=== PATIENT | female | born 1950 | race African-American/Black ===

== ENCOUNTER 2019-07-17 12:22 | Outpatient (CLI) | payer OTHER, MEDICAID, SELFPAY ==
--- NOTE | ~2019-07-17 | CT_ITS ---
EXAMINATION:CT lung screening DATE: 07/17/2019 13:03 INDICATION: Personal history of nicotine dependence. Smoker who quit 3 years ago with 30 pack year hi story. TECHNIQUE: Computed tomography (CT) of the chest was performed without intravenous contrast. Automate d exposure control and iterative reconstruction technique were employed. The dose-length product (DLP ) was 185.70 mGy-cm. COMPARISON: Chest CT 05/01/2017 FINDINGS: There is mild emphysema. There is mild atelectasis bilaterally. Calcified bilateral lung no dules and calcified hilar and mediastinal lymph nodes are consistent with old granulomatous disease. Again seen is a 6 mm part solid nodule in right middle lobe. There is a 3 mm nodule in right lower lo be. No pleural effusion. The heart size is normal. There are coronary artery calcifications. No peric ardial effusion. There is mild thoracic spondylosis. IMPRESSION: 1. Lung-RADS category 2: Benign appearance or behavior. Continue annual screening with noncontrast lo w-dose chest CT in 12 months. Reviewed, dictated and finalized at location A. IMPRESSION: 1. Lung-RADS category 2: Benign appearance or behavior. Continue annual screeni ng with noncontrast low-dose chest CT in 12 months.
== END 2019-07-17 12:23 | disposition home or self-care (01) ==
PROVIDERS: Visit Provider Internal Medicine Critical Care Medicine
DX: Z12.2 Encounter for screening for malignant neoplasm of respiratory organs (principal); Z87.891 Personal history of nicotine dependence
CPT/HCPCS: G0297

== ENCOUNTER 2019-07-23 13:40 | Emergency (ER) | payer OTHER, MEDICAID, SELFPAY ==
[2019-07-23 13:50] VITALS: BP 139/89; PULSE 64; RESP 20; TEMP 37.1; O2SAT 98
--- NOTE | 2019-07-23 14:09 | ED.EYEPROB ---
HPI - Eye Problem General Chief complaint: Eye Problems Stated complaint: Eye problems History of Present Illness HPI Narrative: Patient is a 69-year-old female presents to the [facility] via POV for evaluation of a right eye problem that began approximately 3 days ago. Additionally, she reports itching and redness and swelling of right upper and lower eyelid. No relief with warm compresses. Nothing worsens symptoms. Nothing improves symptoms. Denies fever, chills, sweats, change in appetite, poor p.o. intake, vision changes, drainage, rhinorrhea, congestion, eye pain, dry eyes, foreign body sensation, photophobia, cp, heart palpitations, sob, cough, headache, ear pain, and dizziness. MD chief complaint: eye pain Related Data Home Medications Medication Instructions Recorded Confirmed amlodipine 07/23/19 atorvastatin 07/23/19 empagliflozin [Jardiance] mg 07/23/19 fluticasone furoate-vilanterol INHALATION 07/23/19 [Breo Ellipta] insulin aspart U-100 [Novolog unit SUBCUT 07/23/19 Flexpen U-100 Insulin] insulin glargine [Lantus Solostar unit SUBCUT 07/23/19 U-100 Insulin] isosorbide mononitrate mg PO 07/23/19 lisinopril 07/23/19 metformin mg 07/23/19 metoprolol succinate PO 07/23/19 rivaroxaban [Xarelto] mg 07/23/19 tiotropium bromide [Spiriva INHALATION 07/23/19 Respimat] Allergies Allergy/AdvReac Type Severity Reaction Status Date / Time Penicillins Allergy Unknown Verified 10/17/17 11:28 Review of Systems Review of Systems: Narrative: All other systems reviewed and are negative COUNTS INCLUDE 234 BEDS AT THE [facility] Past Medical History Medical History Anxiety Arthritis Asthma-COPD overlap syndrome Atrial fibrillation, chronic Bronchitis Cataracts, bilateral CHF (congestive heart failure) Chronic back pain Chronic respiratory failure with hypoxia and hypercapnia COPD (chronic obstructive pulmonary disease) Diabetes History of melena HTN (hypertension) Hypercholesterolemia Pneumonia Postmenopausal Sleep apnea UTI (urinary tract infection) Surgical History Surgical History H/O tubal ligation H/O: hysterectomy Family History Family History Father Malignant neoplasm of prostate Patient's father is Mother Family history of malignant neoplasm of brain Patient's mother is Hypertension Family history of malignant neoplasm of ovary Sibling Family history of cardiovascular disease Other Diabetes mellitus Social History Social History Smoking packs per day: 1 Smoking cigarettes per day: 20.0 Years smoked: 20 Smoking pack-years: 20.00 Smoking status: Former smoker Smoking end date: 04/15/14 Alcohol intake: never Gender identity (if verbalized by the patient): Female Comments I have reviewed and agree with the patient's past medical, surgical, social, and family hx as documented by the RN. There is no relevant family history pertinent to the presenting complaint. Exam Narrative: Exam Narrative: GENERAL: Well-appearing, well-nourished, and in no acute distress. HEAD: Normocephalic, atraumatic. No sinus tenderness or facial swelling appreciated. EYES: PERRLA and EOMI. Periorbital are is without erythema, swelling, pain, and warmth. R eye with mild amount of clear drainage. Left eyelids and lashes are normal. Bilateral sclera are injected. Bilat conjunctiva are normal. Left upper and lower eyelids with moderate swelling and erythema. ENT: Nares clear, no rhinorrhea or epistaxis. Bilateral turbinates without erythema/ swelling. Mucous membranes moist and pink. Uvula is midline without erythema and swelling. No evidence of petechial rash, cobblestoning, lesions, ulcers, erythema, swelling, exudates, pe
--- NOTE | 2019-07-23 15:01 | PC.NURSE ---
aware of rx status. [facility] it dept. called for printing rx issue.
== END 2019-07-23 15:16 | disposition home or self-care (01) ==
PROVIDERS: Emergency Provider Nurse Practitioner Family
DX: J30.2 Other seasonal allergic rhinitis (principal); Z87.891 Personal history of nicotine dependence; M19.90 Unspecified osteoarthritis, unspecified site; I48.91 Unspecified atrial fibrillation; H26.9 Unspecified cataract; I11.0 Hypertensive heart disease with heart failure; I50.9 Heart failure, unspecified; J44.9 Chronic obstructive pulmonary disease, unspecified; E11.9 Type 2 diabetes mellitus without complications; E78.00 Pure hypercholesterolemia, unspecified; G47.30 Sleep apnea, unspecified; Z87.440 Personal history of urinary (tract) infections; Z79.4 Long term (current) use of insulin; Z79.01 Long term (current) use of anticoagulants
CPT/HCPCS: 99213; G0463

== ENCOUNTER 2019-08-04 16:35 | Emergency (ER) | payer OTHER, MEDICAID, SELFPAY ==
[2019-08-04 16:46] VITALS: BP 93/68; PULSE 87; RESP 16; TEMP 37.2; O2SAT 97
--- NOTE | 2019-08-04 17:07 | ED.SKABFB ---
HPI - Skin/Abscess/Foreign Bdy General Chief complaint: Skin/Abscess/Foreign Body Stated complaint: Itchy all over Time Seen by Provider: 08/04/19 17:07 Source: patient and RN notes reviewed Mode of arrival: ambulatory Limitations: no limitations History of Present Illness MD complaint: rash and other (itching) Related Data Home Medications Medication Instructions Recorded Confirmed amlodipine 07/23/19 atorvastatin 07/23/19 empagliflozin [Jardiance] mg 07/23/19 fluticasone furoate-vilanterol INHALATION 07/23/19 [Breo Ellipta] insulin aspart U-100 [Novolog unit SUBCUT 07/23/19 Flexpen U-100 Insulin] insulin glargine [Lantus Solostar unit SUBCUT 07/23/19 U-100 Insulin] isosorbide mononitrate mg PO 07/23/19 lisinopril 07/23/19 metformin mg 07/23/19 metoprolol succinate PO 07/23/19 rivaroxaban [Xarelto] mg 07/23/19 tiotropium bromide [Spiriva INHALATION 07/23/19 Respimat] Allergies Allergy/AdvReac Type Severity Reaction Status Date / Time Penicillins Allergy Unknown Verified 10/17/17 11:28 Review of Systems Review of Systems: Narrative: CONSTITUTIONAL: Denies fever, chills, or sweats. EYES: Denies visual changes, redness, or discharge. ENT: Denies rhinorrhea, congestion, sore throat, or otalgia. CARDIOVASCULAR: Denies chest pain, palpitations, or edema. RESPIRATORY: Denies cough or dyspnea. GASTROINTESTINAL: Denies abdominal pain, nausea, vomiting, or diarrhea. GENITOURINARY: Denies dysuria or hematuria. SKIN: Denies rash or itching. MUSCULOSKELETAL: Denies back pain, joint pain, or myalgia. NEUROLOGIC: Denies headache, numbness, or weakness. PSYCHIATRIC: Denies anxiety or depression. All systems reviewed & are unremarkable except as noted in HPI and below PMFSH Past Medical History Medical History Anxiety Arthritis Asthma-COPD overlap syndrome Atrial fibrillation, chronic Bronchitis Cataracts, bilateral CHF (congestive heart failure) Chronic back pain Chronic respiratory failure with hypoxia and hypercapnia COPD (chronic obstructive pulmonary disease) Diabetes History of melena HTN (hypertension) Hypercholesterolemia Pneumonia Postmenopausal Sleep apnea UTI (urinary tract infection) Surgical History Surgical History H/O tubal ligation H/O: hysterectomy Family History Family History Father Malignant neoplasm of prostate Patient's father is Mother Family history of malignant neoplasm of brain Patient's mother is Hypertension Family history of malignant neoplasm of ovary Sibling Family history of cardiovascular disease Other Diabetes mellitus Social History Social History Smoking packs per day: 1 Smoking cigarettes per day: 20.0 Years smoked: 20 Smoking pack-years: 20.00 Smoking status: Former smoker Smoking end date: 04/15/14 Alcohol intake: never Comments At time of signature, agree with nursing past medical, surgical, social and family history. There is no relevant family history pertinent to the presenting complaint Exam Narrative: Exam Narrative: GENERAL: Well-appearing, well-nourished, and in no acute distress. HEAD: Normocephalic, atraumatic. EYES: PERRLA and EOMI. ENT: Nares clear, no rhinorrhea or epistaxis. Mucous membranes moist. NECK: Supple. CHEST: Clear to auscultation. No respiratory distress. HEART: Regular rate and rhythm. No murmur heard. Normal peripheral pulses. ABDOMEN: Soft, nontender, nondistended, normal active bowel sounds. EXTREMITIES: Normal range of motion. No edema. SKIN: Warm, dry, no rash. NEURO: No focal deficits. Alert and oriented x3. Course Vital Signs Vital signs: Vital Signs Temperature 37.2 C 08/04/19 16:46 Pulse Rate 87 04
--- NOTE | 2019-08-04 17:08 | ED.SKABFB ---
HPI - Skin/Abscess/Foreign Bdy General Chief complaint: Skin/Abscess/Foreign Body Stated complaint: Itchy all over Time Seen by Provider: 08/04/19 17:07 Source: patient and RN notes reviewed Mode of arrival: ambulatory Limitations: no limitations History of Present Illness HPI narrative: 69 year old female presents to [facility] care with complaints of rash to anterior neck and on forearms for the past 1 weeks. Patient states that she has had problems with allergies for 2 weeks was seen previously in clinic for allergies with swelling to eyes. Patient was given steroids and told to use Flonase ,Pepcid and Zyrtec but only took steroids. Patient states that she has been taking some Benadryl with last dose yesterday. Patient has some swelling to her bilateral eyelids today with sclera clear and no drainage from eyes noted. Patient denies any new soaps, laundry detergents, or any new foods or medication, denies any pet exposure. Patient denies any difficulty with her breathing or any difficulty with swallowing with SAO2 97% on room air. MD complaint: rash and other (itching) Onset (ago): week(s) (2) Location: face (eyelids bilaterally), neck, LUE and RUE Severity: moderate Quality: other (itching) Pain Consistency: constant Relieving factors: none Context: none Associated symptoms: itching Treatments prior to arrival: other (took steroids sporatic use of Benadryl orally) Related Data Home Medications Medication Instructions Recorded Confirmed amlodipine 07/23/19 atorvastatin 07/23/19 empagliflozin [Jardiance] mg 07/23/19 fluticasone furoate-vilanterol INHALATION 07/23/19 [Breo Ellipta] insulin aspart U-100 [Novolog unit SUBCUT 07/23/19 Flexpen U-100 Insulin] insulin glargine [Lantus Solostar unit SUBCUT 07/23/19 U-100 Insulin] isosorbide mononitrate mg PO 07/23/19 lisinopril 07/23/19 metformin mg 07/23/19 metoprolol succinate PO 07/23/19 rivaroxaban [Xarelto] mg 07/23/19 tiotropium bromide [Spiriva INHALATION 07/23/19 Respimat] Allergies Allergy/AdvReac Type Severity Reaction Status Date / Time Penicillins Allergy Unknown Verified 10/17/17 11:28 Review of Systems Review of Systems: All systems reviewed & are unremarkable except as noted in HPI and below Constitutional: Constitutional: Reports as per HPI and Reports no additional constitutional complaints Eyes: Eyes: Reports as per HPI and Reports no additional eye complaints Comments: swelling to her bilateral eylids ENT: Reports system reviewed and no additional complaints, except as documented Cardiovascular: Cardiovascular: Reports as per HPI and Reports no additional cardiovascular complaints Respiratory: Respiratory: Reports as per HPI and Reports no additional respiratory complaints Gastrointestinal: Gastrointestinal: Reports as per HPI and Reports no additional gastrointestinal complaints Genitourinary: Genitourinary: Reports no additional female genitourinary complaints and Reports as per HPI Musculoskeletal: Musculoskeletal: Reports no additional musculoskeletal complaints and Reports as per HPI Integumentary/Breasts: Skin/Breast: Reports system reviewed and no additional complaints, except as docu and Reports as per HPI Neurologic: Reports system reviewed and no additional complaints, except as documented and Reports as per HPI Psychiatric: Psychiatric: Reports no additional psychiatric complaints and Reports as per HPI Endocrine: Endocrine: Reports no additional endocrine complaints and Reports as per HPI Hematologic/Lymphatic: Hematologic/Lymphatic: Reports no additional hematologic/lymphatic complaints and Reports as per HPI Allergic/Immunologic: Allergic/Immunologic: Reports no additional allergic/immunologic complaints Comments: fine red raised rash to her anterior neck and bilateral forearms near wrists, bilateral eyelid swelling with no drainage from eyes, sclera clear, no visual changes PMFSH Past Medical History Med
[2019-08-04] MEDS: methylPREDNISolone ACETATE 40 MG/ML VIAL 80 MG IM (17:37)
== END 2019-08-04 18:04 | disposition home or self-care (01) ==
LOC: EXPCOLL 16:39
PROVIDERS: Emergency Provider Registered Nurse
DX: L23.9 Allergic contact dermatitis, unspecified cause (principal); E11.9 Type 2 diabetes mellitus without complications; I48.20 Chronic atrial fibrillation, unspecified; J44.9 Chronic obstructive pulmonary disease, unspecified; I11.0 Hypertensive heart disease with heart failure; I50.9 Heart failure, unspecified; J96.11 Chronic respiratory failure with hypoxia; J96.12 Chronic respiratory failure with hypercapnia; Z79.01 Long term (current) use of anticoagulants; Z79.4 Long term (current) use of insulin; Z79.84 Long term (current) use of oral hypoglycemic drugs; Z87.891 Personal history of nicotine dependence; E78.00 Pure hypercholesterolemia, unspecified; Z87.440 Personal history of urinary (tract) infections; G47.30 Sleep apnea, unspecified
CPT/HCPCS: 96372; 99213; G0463; J1030

== ENCOUNTER 2019-08-21 20:07 | Emergency (ER) | payer OTHER, MEDICAID, SELFPAY ==
--- NOTE | ~2019-08-21 | CT_ITS ---
EXAMINATION: CT abdomen pelvis w con DATE: 08/21/2019 22:42 INDICATION: Left-sided abdomen pain. TECHNIQUE: Computed tomography (CT) of the abdomen and pelvis was performed with 100 cc Omnipaque 350 intravenous contrast. The dose-length product was 905.29 mGy-cm. Automated exposure control and iter ative reconstruction technique were employed. COMPARISON: 03/2017 FINDINGS: Lung bases are unremarkable. Heart size is normal. Small hiatal hernia. No significant pleu ral or pericardial effusion. The liver, spleen, pancreas, adrenal glands are unremarkable. There are small subcentimeter hypodensi ties of the kidneys, most likely benign cysts. Gallbladder is present. Stable 2.6 cm benign-appearing calcified soft tissue mass in the right lower abdomen anteriorly, likely benign. No abnormal pelvic masses or fluid collections. Nonobstructive bowel gas pattern. Small fat-containing umbilical hernia. No evidence for diverticulitis. Normal appendix. Mild atherosclerosis and ectasia of the aorta. Mode rate lumbar spondylosis. IMPRESSION: 1. No acute abdominal abnormality. Reviewed, dictated and finalized at location A.
[2019-08-21 20:08] VITALS: BP 114/54; PULSE 108; RESP 20; TEMP 36.2; O2SAT 98
--- NOTE | 2019-08-21 20:47 | ED.ABDPAIN ---
HPI - Abdominal Pain General Chief Complaint: Abdominal Pain Stated Complaint: ABD pain, vomiting Time Seen by Provider: 08/21/19 20:30 Source: patient Mode of arrival: ambulatory Limitations: no limitations History of Present Illness HPI narrative: Patient is a 69-year-old female who presents to the emergency department with complaint of abdominal pain. Patient reports onset of symptoms 2 days ago. Patient locates the pain diffusely across the left side of her abdomen. Patient has had nausea and vomiting intermittently as well. Patient denies any diarrhea or urinary symptoms. She denies any fever. Patient denies any prior episodes. MD elicited complaint: abdominal pain Pertinent past history: none Onset (ago): day(s) (2) Pain Consistency: constant Location: LUQ, LLQ and L flank Radiation: none Migration to: no migration Associated symptoms: nausea and vomiting Related Data Home Medications Medication Instructions Recorded Confirmed amlodipine 07/23/19 atorvastatin 07/23/19 empagliflozin [Jardiance] mg 07/23/19 fluticasone furoate-vilanterol INHALATION 07/23/19 [Breo Ellipta] insulin aspart U-100 [Novolog unit SUBCUT 07/23/19 Flexpen U-100 Insulin] insulin glargine [Lantus Solostar unit SUBCUT 07/23/19 U-100 Insulin] isosorbide mononitrate mg PO 07/23/19 lisinopril 07/23/19 metformin mg 07/23/19 metoprolol succinate PO 07/23/19 rivaroxaban [Xarelto] mg 07/23/19 tiotropium bromide [Spiriva INHALATION 07/23/19 Respimat] Allergies Allergy/AdvReac Type Severity Reaction Status Date / Time Penicillins Allergy Unknown Verified 10/17/17 11:28 Review of Systems Review of Systems: All systems reviewed & are unremarkable except as noted in HPI and below Constitutional: Constitutional: Denies fever(s) Gastrointestinal: Gastrointestinal: Reports abdominal pain, Denies hematochezia, Denies constipation, Denies diarrhea, Reports nausea and Reports vomiting Genitourinary: Genitourinary: Denies hematuria, Denies nocturia and Denies dysuria PMFSH Past Medical History Medical History Anxiety Arthritis Asthma-COPD overlap syndrome Atrial fibrillation, chronic Bronchitis Cataracts, bilateral CHF (congestive heart failure) Chronic back pain Chronic respiratory failure with hypoxia and hypercapnia COPD (chronic obstructive pulmonary disease) Diabetes History of melena HTN (hypertension) Hypercholesterolemia Pneumonia Postmenopausal Sleep apnea UTI (urinary tract infection) Surgical History Surgical History H/O tubal ligation H/O: hysterectomy Social History Social History Smoking packs per day: 1 Smoking cigarettes per day: 20.0 Years smoked: 20 Smoking pack-years: 20.00 Smoking status: Former smoker Smoking end date: 04/15/14 Alcohol intake: never Gender identity (if verbalized by the patient): Female Exam Const: General: cooperative, no acute distress and alert Nutritional Appearance: well nourished Orientation/consciousness: patient oriented x3 Limitations: no limitations Resp: Effort & Inspection: normal respiratory effort Auscultation: clear to auscultation bilaterally Cardio: Rate: regular rate Rhythm: regular rhythm GI: GI Palp: Yes Soft to palpation and Yes Tenderness to palpation present (GI) (Diffuse left abdomen/flank) Auscultation: normal bowel sounds : General: Yes no CVA tenderness Back/Spine/Pelvis: Back: no CVA tenderness and No back tenderness Thoracic/Lumbar Spine: thoraco-lumbar ROM normal Skin: General skin exam: normal color Neuro: General: patient oriented x3 Cognition (Neuro): normal cognition Speech: normal speech Extrem: General: normal to inspection, full ROM and no clubbing, cyanosis or edema Psych: Mental Status: mental status grossly normal
[2019-08-21 21:00] VITALS: BP 101/72; PULSE 91; RESP 18; O2SAT 99
[2019-08-21 21:07] LABS: Basophils Absolute Auto 0.1 K/mm3 (0.0-0.1); Basophils Percent Auto 0.8 % (0.2-1.2); Eosinophils Absolute Auto 0.1 K/mm3 (0-0.3); Eosinophils Percent Auto 1.6 % (0-4.4); Hematocrit 45.8 % (37.0-47.0); Hemoglobin 14.6 g/dL (12.0-15.0); Immature Granulocyte Absolute 0.03 K/mm3 (0.00-0.031); Immature Granulocyte Percent A 0.4 % (0-0.5); Lymphocytes Percent Auto 26.3 % (18.3-44.2); Mean Corpuscular HGB Conc 31.9 g/dl (32-36); Mean Corpuscular Hemoglobin 28.1 pg (26-34); Mean Corpuscular Volume 88.1 fl (80-100); Mean Platelet Volume 11.7 fl (7.4-10.4); Monocytes Absolute Auto 0.8 K/mm3 (0.1-0.6); Monocytes Percent Auto 10.2 % (2.6-8.5); Neutrophils Absolute Auto 4.9 K/mm3 (1.3-6.7); Neutrophils Percent Auto 60.7 % (45.5-73.1); Platelet Count Result 345 k/mm3 (150-375); Red Cell Distribution Width 17.4 % (11.5-14.5)
[2019-08-21 21:17] LABS: INR 1.6; Prothrombin Time 18.5 Seconds (11.1-14.7)
[2019-08-21 21:18] LABS: Lactic Acid Reflex 1.4 mmol/L (0.7-2.1); Partial Thromboplastin Time 39.7 SECONDS (22.3-36.8)
[2019-08-21 22:27] LABS: Alanine Aminotransferase 26 U/L (4-35); Albumin Level 4.5 g/dL (3.5-5.1); Alkaline Phosphatase 94 U/L (38-126); Aspartate Amino Transferase 25 U/L (14-36); Bilirubin,Total 0.4 mg/dL (0.2-1.3); Blood Urea Nitrogen 22 mg/dL (7-17); Calcium 9.5 mg/dL (8.4-10.2); Carbon Dioxide 26 mmol/L (22-30); Chloride 103 mmol/L (98-107); Estimated Glomerular Filt Rate 60; Glucose 176 mg/dL (65-105); Lipase 49 U/L (23-300); Potassium 4.2 mmol/L (3.4-5.0); Sodium 139 mmol/L (137-145)
[2019-08-21 23:19] LABS: Add Urine Microscopic? YES; Appearance Urine Clear (Clear); Bacteria Urine Trace /hpf; Bilirubin Urine Negative (Negative); Color Urine Yellow (Yellow); Glucose Urine UA 3+ mg/dL (Negative); Ketones Urine Negative (Negative); Leukocyte Esterase Ur 1+ LEU/UL (Negative); Mucus Urine Rare /lpf; Nitrate Urine Positive (Negative); Protein Urine 1+ mg/dL (Negative); RBC Urine 0-2 /hpf (0-2); Squamous Epithelial Cell Urine Moderate /hpf (Few); Urobilinogen Urine Negative mg/dL (<2.0); WBC Urine >75 /hpf
[2019-08-21 23:25] LABS: Specific Grav Ur 1.054 (1.001-1.035)
[2019-08-21 23:26] LABS: Blood Urine Negative (Negative)
[2019-08-21 23:33] VITALS: BP 107/67; PULSE 90; RESP 18; O2SAT 98
[2019-08-22] MEDS: ONDANSETRON INJ 4 MG/2 ML VIAL IV PUSH (00:14)
[2019-08-22 01:07] VITALS: BP 142/79; PULSE 74; RESP 18; O2SAT 99
== END 2019-08-22 01:08 | disposition home or self-care (01) ==
PROVIDERS: Emergency Provider Emergency Medicine
DX: N39.0 Urinary tract infection, site not specified (principal); M19.90 Unspecified osteoarthritis, unspecified site; I48.20 Chronic atrial fibrillation, unspecified; Z79.01 Long term (current) use of anticoagulants; I50.9 Heart failure, unspecified; J96.11 Chronic respiratory failure with hypoxia; J96.12 Chronic respiratory failure with hypercapnia; E11.9 Type 2 diabetes mellitus without complications; I11.0 Hypertensive heart disease with heart failure; E78.00 Pure hypercholesterolemia, unspecified; G47.30 Sleep apnea, unspecified; Z87.891 Personal history of nicotine dependence; J44.9 Chronic obstructive pulmonary disease, unspecified; Z79.84 Long term (current) use of oral hypoglycemic drugs; Z79.4 Long term (current) use of insulin
CPT/HCPCS: 36415; 74177; 80053; 81001; 83605; 83690; 85025; 85610; 85730; 87077; 87086; 87088; 87186; 96365; 96375; 99284; J0131; J0696; J2405; Q9967

== ENCOUNTER 2019-11-28 09:27 | Observation (INO) | payer OTHER, MEDICAID, SELFPAY ==
[2019-11-28] VITALS (12 sets, daily range): BP systolic 125–166; BP diastolic 74–128; PULSE 88–109; RESP 18–30; TEMP 36.2–36.4; O2SAT 92–99; BMI 35.8
--- NOTE | ~2019-11-28 | XR_ITS ---
EXAMINATION: XR chest 1V portable DATE: 11/28/2019 10:41 INDICATION: Shortness of breath. TECHNIQUE: A single frontal view of the chest was obtained. COMPARISON: Chest 2 views 03/20/2019, CT abdomen and pelvis 08/21/2019 FINDINGS: The chest demonstrates clear lungs without pneumonia, pleural effusion, or pneumothorax. Ca rdiomegaly is noted. IMPRESSION: 1. Cardiomegaly. Reviewed, dictated and finalized at location A. IMPRESSION: 1. Cardiomegaly.
--- NOTE | ~2019-11-28 | CT_ITS ---
EXAMINATION: CTA chest PE protocol DATE: 11/29/2019 12:04 INDICATION: Shortness of breath. TECHNIQUE: Computed tomography angiography (CTA) of the chest was performed with 100 mL Omnipaque-350 intravenous contrast timed to evaluate the pulmonary arteries. Coronal maximum intensity projection 3D-reconstructions were created by the technologist. Automated exposure control and iterative reconst ruction technique were employed. The dose-length product was 909.10 mGy-cm. COMPARISON: Chest CT 07/17/2019 FINDINGS: There is mild emphysema. Motion artifact is noted. Calcified pulmonary nodules and calcifie d hilar and mediastinal lymph nodes are consistent with old granulomatous disease. There is mild atel ectasis bilaterally. No pleural effusion. There is biatrial enlargement of the heart. No pericardial effusion. There is no pulmonary embolus. There is mild thoracic spondylosis and severe lumbar spondyl osis. IMPRESSION: 1. No pulmonary embolus. Sensitivity is mildly decreased by motion artifact. 2. Mild emphysema. Reviewed, dictated and finalized at location A.
--- NOTE | 2019-11-28 09:47 | ECG_ITS ---
Measurements Intervals [place] Rate: 91 P: [place]: 0 QRS: 60 QRSD: 86 T: 66 QT: 361 QTc: 446 Interpretive Statements ATRIAL FIBRILLATION INCOMPLETE RIGHT BUNDLE BRANCH BLOCK BASELINE ARTIFACT- I, II, III, AVL, AVR, AVL, AVF, V1-V3 ABNORMAL ECG Electronically Signed On 11-28-2019 10:17:18 CDT by Gonsalo Salmon D.O.
--- NOTE | 2019-11-28 10:32 | ED.SOB ---
HPI - SOB/Dyspnea General Chief Complaint: Shortness of Breath/Dyspnea Stated Complaint: SOB Source: patient Mode of arrival: ambulatory Limitations: no limitations History of Present Illness HPI Narrative: This patient is a 69 year old female with history of COPD home oxygen, CHF who presents from home for evaluation of sob since last night. PAtient reports she has not been able to sleep due to worsening sob. She has a cough that is productive with white phlegm. She has been using her inhaler and nebulizer without improved. She normal wears [place] oxygen at home but she did not bring it with her to ER, so she was hypoxic on arrival. SHe denies chest pain, fever, nausea, vomiting or edema. She denies any sick contacts. Pertinent past history: COPD and congestive heart failure Relieving factors: nothing Known history of: COPD and congestive heart failure Associated symptoms: cough, wheezing and sputum production Related Data Home oxygen amount: 2 liters Home Medications Medication Instructions Recorded Confirmed amlodipine 10 mg PO DAILY 07/23/19 11/28/19 atorvastatin 20 mg PO HS 07/23/19 11/28/19 empagliflozin [Jardiance] 10 mg PO DAILY 07/23/19 11/28/19 fluticasone furoate-vilanterol 1 inh INHALATION DAILY 07/23/19 11/28/19 [Breo Ellipta] insulin aspart U-100 [Novolog 10 unit SUBCUT TID 07/23/19 11/28/19 Flexpen U-100 Insulin] insulin glargine [Lantus Solostar 25 unit SUBCUT HS 07/23/19 11/28/19 U-100 Insulin] isosorbide mononitrate 30 mg PO DAILY 07/23/19 11/28/19 lisinopril 20 mg PO DAILY 07/23/19 11/28/19 metformin 500 mg PO BID 07/23/19 11/28/19 metoprolol succinate 25 mg PO DAILY 07/23/19 11/28/19 rivaroxaban [Xarelto] 20 mg PO DAILY 07/23/19 11/28/19 tiotropium bromide [Spiriva 1 inh INHALATION BID 07/23/19 11/28/19 Respimat] albuterol sulfate 2.5 mg INHALATION Q3H 11/28/19 11/28/19 Allergies Allergy/AdvReac Type Severity Reaction Status Date / Time Penicillins Allergy Unknown Rash Verified 11/28/19 12:16 Review of Systems Review of Systems: All systems reviewed & are unremarkable except as noted in HPI and below Constitutional: Constitutional: Denies chills and Denies fever(s) ENT: Denies sore throat Cardiovascular: Cardiovascular: Denies chest pain Respiratory: Respiratory: Reports cough, Reports dyspnea and Reports wheezing Gastrointestinal: Gastrointestinal: Denies abdominal pain, Denies diarrhea, Denies nausea and Denies vomiting PMFSH Past Medical History Medical History Anxiety Arthritis Asthma-COPD overlap syndrome Atrial fibrillation, chronic Bronchitis Cataracts, bilateral CHF (congestive heart failure) Chronic back pain Chronic respiratory failure with hypoxia and hypercapnia COPD (chronic obstructive pulmonary disease) Diabetes History of melena HTN (hypertension) Hypercholesterolemia Pneumonia Postmenopausal Sleep apnea UTI (urinary tract infection) Social History Social History Smoking packs per day: 1 Smoking cigarettes per day: 20.0 Years smoked: 20 Smoking pack-years: 20.00 Smoking status: Former smoker Tobacco type: cigarettes Smoking end date: 04/15/14 Alcohol intake: never Substance use: never Gender identity (if verbalized by the patient): Female Spiritual care concerns: No Exam Const: General: alert; No diaphoretic Orientation/consciousness: patient oriented x3 Other: mild distress Eyes: EOM: EOMs intact bilaterally Neck: Neck: normal visual inspection Chest: Chest palpation & inspection: normal inspection of the chest Resp: Effort & Inspection: not labored, no retractions, tachypneic and no use of accessory muscles Auscultation: wheezes throughout Cardio: Rate: regular rate Rhythm: regular rhythm Heart sounds: no murmurs GI: GI Palp: Yes Soft to palpation, No Tenderness to palpation pres
[2019-11-28 10:46] LABS: Alveolar/Arterial O2 Gradient 17.5 mmHg; Base Excess ABG 0.8 mEq/l (+/-2.0); Carboxyhemoglobin 0.7 % THb (0-2.0); Device ROOM AIR; Fractional Inspired Oxygen 21 %; HCO3 ABG 27.4 mEq/l (22.0-26.0); Methemoglobin ABG 0.2 %THb (0-1.5); Oxygen Content ABG 16.7 %vol (16.0-22.0); Oxygen Saturation ABG 92.9 % (95.0-100.0); Oxyhemoglobin 91.3 % THb (90.0-100.0); PCO2 ABG 51.9 mmHg (35.0-45.0); PO2 ABG 70.1 mmHg (80.0-100.0); PO2 FiO2 Ratio Arterial Blood 3.34 %; Reduced Hemoglobin 7.8 %THb (0-5.0); Site Drawn RIGHT BRACHIAL
[2019-11-28] MEDS: ALBUTEROL SULFATE (*SP) AEROSOL 1 PUFF 8 PUFF INHALATION (10:47)
[2019-11-28] MEDS: methylPREDNISolone SOD SUCC 125 MG VIAL IV PUSH (11:33)
[2019-11-28 12:03] LABS: Basophils Absolute Auto 0.1 K/mm3 (0.0-0.1); Basophils Percent Auto 0.7 % (0.2-1.2); Eosinophils Absolute Auto 0.6 K/mm3 (0-0.3); Eosinophils Percent Auto 6.8 % (0-4.4); Hematocrit 43.5 % (37.0-47.0); Hemoglobin 13.7 g/dL (12.0-15.0); Immature Granulocyte Absolute 0.06 K/mm3 (0.00-0.031); Immature Granulocyte Percent A 0.7 % (0-0.5); Lactate Dehydrogenase 561 U/L (313-618); Lymphocytes Absolute Auto 1.45 K/mm3 (0.9-3.2); Lymphocytes Percent Auto 17.7 % (18.3-44.2); Mean Corpuscular HGB Conc 31.5 g/dl (32-36); Mean Corpuscular Hemoglobin 28.7 pg (26-34); Mean Corpuscular Volume 91.2 fl (80-100); Mean Platelet Volume 11.9 fl (7.4-10.4); Monocytes Absolute Auto 0.7 K/mm3 (0.1-0.6); Neutrophils Absolute Auto 5.3 K/mm3 (1.3-6.7); Neutrophils Percent Auto 65.1 % (45.5-73.1); Platelet Count Result 306 k/mm3 (150-375); Red Blood Count 4.77 M/mm3 (4.2-5.4); Red Cell Distribution Width 15.2 % (11.5-14.5); White Blood Count 8.2 K/mm3 (4.5-10.0)
[2019-11-28 12:07] LABS: Alanine Aminotransferase 28 U/L (4-35); Albumin Level 4.5 g/dL (3.5-5.1); Alkaline Phosphatase 83 U/L (38-126); Anion Gap 8 mmol/L (8-16); Aspartate Amino Transferase 31 U/L (14-36); Bilirubin,Total 0.5 mg/dL (0.2-1.3); Blood Urea Nitrogen 16 mg/dL (7-17); Calcium 8.9 mg/dL (8.4-10.2); Carbon Dioxide 30 mmol/L (22-30); Chloride 101 mmol/L (98-107); Estimated CRCL calculation 89 ml/min; Estimated Glomerular Filt Rate > 60; Glucose 164 mg/dL (65-105); Potassium 4.3 mmol/L (3.4-5.0); Sodium 139 mmol/L (137-145)
[2019-11-28 12:12] LABS: NT Pro B Type Natriuretic Pept 297 PG/ML (5-100)
[2019-11-28 12:48] LABS: INR 1.4; Prothrombin Time 16.5 Seconds (11.1-14.7)
[2019-11-28 12:49] LABS: Partial Thromboplastin Time 36.4 SECONDS (22.3-36.8)
--- NOTE | 2019-11-28 15:50 | PC.NURSE ---
This patient, Nano Gayle, was admitted to [facility] Room 330-01. Patient/family oriented to hospital policies and general routines including ID bracelet, bed and alarms, visiting hours, pain management, procedures, bathroom and other care routines, personal items, smoking policy, room service/diet, and visiting hours. Valuables list has been completed. Information on how to activate the Rapid Response Team has been discussed. Patient/Family are encouraged to report perceived risks to care and to ask questions if they do not understand what they are told or what they should do.
[2019-11-28 16:50] LABS: Glucose Point of Care 191 (65-105)
[2019-11-28] MEDS: methylPREDNISolone SOD SUCC 125 MG VIAL 60 MG IV PUSH (18:45)
[2019-11-28] MEDS: ALBUTEROL SULFATE (*SP) AEROSOL 1 PUFF 6 PUFF INHALATION (20:10)
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
[2019-11-28] MEDS: ISOSORBIDE MONONITRATE 30 MG TAB.ER.24H PO (21:04)
[2019-11-28] MEDS: METOPROLOL SUCCINATE EXT REL 25 MG TABCR PO (21:04)
[2019-11-28] MEDS: lisinopriL 20 MG TABLET PO (21:04)
[2019-11-28] MEDS: RIVAROXABAN 20 MG TABLET PO (21:04)
[2019-11-28] MEDS: ATORVASTATIN 20 MG TABLET PO (21:05)
[2019-11-28] MEDS: INSULIN GLARGINE (*BKC) 100 UNITS/ML 25 UNITS SUB-Q (21:05)
[2019-11-28 21:53] LABS: Glucose Point of Care 313 (65-105)
[2019-11-28 22:22] LABS: SARS-CoV-2 RNA PCR Negative
[2019-11-29] VITALS (15 sets, daily range): BP systolic 121–130; BP diastolic 66–79; PULSE 80–108; RESP 18–24; TEMP 36.1–36.4; O2SAT 94–100
[2019-11-29] MEDS: methylPREDNISolone SOD SUCC 125 MG VIAL 60 MG IV PUSH ×3 (01:30→21:08)
[2019-11-29 06:57] LABS: Basophils Percent Auto 0.1 % (0.2-1.2); Hematocrit 41.1 % (37.0-47.0); Hemoglobin 13.1 g/dL (12.0-15.0); Immature Granulocyte Absolute 0.05 K/mm3 (0.00-0.031); Immature Granulocyte Percent A 0.5 % (0-0.5); Lymphocytes Absolute Auto 1.21 K/mm3 (0.9-3.2); Lymphocytes Percent Auto 12.5 % (18.3-44.2); Mean Corpuscular HGB Conc 31.9 g/dl (32-36); Mean Corpuscular Volume 91.1 fl (80-100); Monocytes Absolute Auto 0.3 K/mm3 (0.1-0.6); Neutrophils Absolute Auto 8.1 K/mm3 (1.3-6.7); Neutrophils Percent Auto 83.9 % (45.5-73.1); Platelet Count Result 308 k/mm3 (150-375); Red Blood Count 4.51 M/mm3 (4.2-5.4); White Blood Count 9.7 K/mm3 (4.5-10.0)
[2019-11-29 07:10] LABS: Alanine Aminotransferase 30 U/L (4-35); Albumin Level 4.5 g/dL (3.5-5.1); Alkaline Phosphatase 85 U/L (38-126); Anion Gap 10 mmol/L (8-16); Aspartate Amino Transferase 23 U/L (14-36); Bilirubin,Total 0.4 mg/dL (0.2-1.3); Blood Urea Nitrogen 16 mg/dL (7-17); Calcium 9.3 mg/dL (8.4-10.2); Carbon Dioxide 27 mmol/L (22-30); Chloride 102 mmol/L (98-107); Estimated CRCL calculation 89 ml/min; Estimated Glomerular Filt Rate > 60; Glucose 232 mg/dL (65-105); Potassium 4.3 mmol/L (3.4-5.0); Sodium 139 mmol/L (137-145)
[2019-11-29] MEDS: INSULIN ASPART (*BKC) 100 UNITS/ML SUB-Q ×4 (08:39→21:09)
[2019-11-29] MEDS: ALBUTEROL SULFATE (*SP) AEROSOL 1 PUFF 6 PUFF INHALATION (08:43)
[2019-11-29] MEDS: ISOSORBIDE MONONITRATE 30 MG TAB.ER.24H PO (09:27)
[2019-11-29] MEDS: RIVAROXABAN 20 MG TABLET PO (09:28)
[2019-11-29] MEDS: METOPROLOL SUCCINATE EXT REL 25 MG TABCR PO (09:28)
[2019-11-29] MEDS: lisinopriL 20 MG TABLET PO (09:28)
[2019-11-29] MEDS: amLODIPine BESYLATE 5 MG TABLET 10 MG PO (09:28)
--- NOTE | 2019-11-29 11:21 | PM.IMPN ---
Progress Note: A&P Assessment and Plan (1) Acute exacerbation of chronic obstructive airways disease: Code(s): J44.1 - Chronic obstructive pulmonary disease with (acute) exacerbation Status: Acute Assessment and Plan: Patient presents with sudden onset worsening shortness of breath 2 days prior to arrival; suspect secondary to COPD exacerbation. Chest XR without consolidations or infiltrates. COVID negative. Pulmonary embolism less likely if she has been taking her Xarelto appropriately, but will obtain CTA chest. Takes spiriva and symbicort at home. Hold spiriva in light of duo nebs. Decrease dose of IV solu-medrol; add back nebulized bronchodilator therapy since she is COVID negative; supplemental O2. (2) Chronic respiratory failure with hypoxia and hypercapnia: Code(s): J96.11 - Chronic respiratory failure with hypoxia; J96.12 - Chronic respiratory failure with hypercapnia Status: Acute Assessment and Plan: She tells me she uses 2 to 3 L/min home oxygen only as needed when she is feeling short of breath. Anticipate possible discharge home tomorrow; will plan for home O2 evaluation. (3) Atrial fibrillation, chronic: Code(s): I48.20 - Chronic atrial fibrillation, unspecified Status: Chronic Assessment and Plan: Continue metoprolol and anticoagulation with home Xarelto. Telemetry shows a fib rate 96. (4) Chronic diastolic (congestive) heart failure: Code(s): I50.32 - Chronic diastolic (congestive) heart failure Status: Chronic Assessment and Plan: Chronic diastolic; appears well-compensated. Last echocardiogram 2015 shows normal EF 60-65%, grade I diastolic dysfunction without wall motion abnormalities. BNP is within normal limits for her age. (5) Essential (primary) hypertension: Code(s): I10 - Essential (primary) hypertension Status: Chronic Assessment and Plan: BP is stable, last 122/78 maintained on her home Norvasc, lisinopril, and metoprolol. (6) Diabetic nephropathy associated with type 2 diabetes mellitus: Code(s): E11.21 - Type 2 diabetes mellitus with diabetic nephropathy Status: Acute Assessment and Plan: A1c is 8.0. Home metformin and Jardiance are held. Continue her home long-acting insulin, monitor with accu-cheks and cover with SSI. (7) MARCELO (obstructive sleep apnea): Code(s): G47.33 - Obstructive sleep apnea (adult) (pediatric) Status: Acute Assessment and Plan: CPAP ordered. (8) Hypercholesterolemia: Code(s): E78.00 - Pure hypercholesterolemia, unspecified Status: Chronic Assessment and Plan: Continue home statin therapy. Subjective Date/time seen: 11/29/19 1000 Interval history: Ms. Gayle is a 69yo F admitted with COPD exacerbation. She reports feeling a little bit better today. She feels short of breath with walking but doing okay at rest. She tells me her cough is productive with white phlegm and is at her baseline. She is tolerating oral intake without nausea or vomiting. Review of Systems Review of Systems: Narrative: Twelve systems were reviewed with pertinent positives and negatives as per HPI. Exam Narrative: Exam Narrative: General: Female resting comfortably in bed in no acute distress. HEENT: Normocephalic, EOMI, oral mucosa moist. Cardiovascular: Rate and rhythm are regular. Respiratory: Diffuse expiratory wheezing bilaterally. Non-labored breathing. Tolerating 2L O2 nasal cannula. Abdomen: Soft, non-tender, non-distended, bowel sounds present. Extremities: Peripheral pulses intact. No edema.
[2019-11-29 11:38] LABS: Glucose Point of Care 368 (65-105)
[2019-11-29] MEDS: IPRATROPIUM BR 0.02% INH SOLN 0.5 MG/2.5 ML VIAL INHALATION ×2 (13:07→20:04)
[2019-11-29 17:00] LABS: Glucose Point of Care 326 (65-105)
[2019-11-29] MEDS: ATORVASTATIN 20 MG TABLET PO (21:08)
[2019-11-29] MEDS: FAMOTIDINE 20 MG TABLET 40 MG PO (21:08)
[2019-11-29] MEDS: INSULIN GLARGINE (*BKC) 100 UNITS/ML 25 UNITS SUB-Q (21:08)
[2019-11-29 21:20] LABS: Glucose Point of Care > 500 (65-105)
[2019-11-29] MEDS: guaiFENesin/DEXTROMETHORPHAN 10 ML UDC 5 ML PO (22:56)
[2019-11-29 23:24] LABS: Glucose Point of Care 447 (65-105)
[2019-11-29] MEDS: INSULIN ASPART (*BKC) 100 UNITS/ML 8 UNITS SUB-Q (23:26)
[2019-11-30] VITALS (17 sets, daily range): BP systolic 137; BP diastolic 77; PULSE 82–98; RESP 16–26; TEMP 36.8; O2SAT 86–96
[2019-11-30] MEDS: IPRATROPIUM BR 0.02% INH SOLN 0.5 MG/2.5 ML VIAL INHALATION ×2 (01:28→08:15)
[2019-11-30 04:10] LABS: Glucose Point of Care 262 (65-105)
[2019-11-30] MEDS: INSULIN ASPART (*BKC) 100 UNITS/ML SUB-Q ×2 (05:52→09:59)
[2019-11-30 08:21] LABS: Glucose Point of Care 269 (65-105)
[2019-11-30] MEDS: INSULIN ASPART (*BKC) 100 UNITS/ML 8 UNITS SUB-Q (09:59)
[2019-11-30] MEDS: metFORMIN HCL 500 MG TABLET PO (10:00)
[2019-11-30] MEDS: amLODIPine BESYLATE 5 MG TABLET 10 MG PO (10:00)
[2019-11-30] MEDS: RIVAROXABAN 20 MG TABLET PO (10:01)
[2019-11-30] MEDS: METOPROLOL SUCCINATE EXT REL 25 MG TABCR PO (10:01)
[2019-11-30] MEDS: predniSONE 20 MG TABLET 60 MG PO (10:01)
[2019-11-30] MEDS: FAMOTIDINE 20 MG TABLET 40 MG PO (10:02)
[2019-11-30] MEDS: lisinopriL 20 MG TABLET PO (10:03)
[2019-11-30] MEDS: ISOSORBIDE MONONITRATE 30 MG TAB.ER.24H PO (10:03)
--- NOTE | 2019-11-30 10:08 | PCRCNOTE ---
HOME O2 EVAL COMPLETE, NO CHANGES FROM PREVIOUS SETTING. NEIGHBOR WILL BRING TANK FOR DISCHARGE
[2019-11-30 10:16] LABS: Glucose Point of Care 249 (65-105)
--- NOTE | 2019-11-30 11:29 | PM.DS ---
DS: Admitting Diagnosis Admitting Diagnosis Admitting Diagnosis: COPD exacerbation/PUI COVID DS: Discharge Diagnosis Discharge Diagnosis (1) Acute exacerbation of chronic obstructive airways disease: Code(s): J44.1 - Chronic obstructive pulmonary disease with (acute) exacerbation Status: Acute Assessment and Plan: Date of Service 11/30/19: Ms. Gayle is a pleasant 69yo F with COPD, chronic A fib on long-term anticoagulation with Xarelto, CHF, hypertension, insulin-dependent type 2 diabetes mellitus, obstructive sleep apnea who presented to the ED for evaluation of worsening shortness of breath onset 2 days ago. She noted she uses 2L home oxygen as needed when she feels short of breath. She used her albuterol nebulizer at home with no relief. CTA chest showed no PE, infiltrate or consolidation. COVID negative. She was treated for COPD exacerbation with IV steroids and nebulized bronchodilators. She was feeling much improved with the therapy outlined above and hemodynamically stable for discharge 11/30/19 with a tapered course of prednisone. Home O2 evaluation showed she could tolerate room air at rest but to use 2L with activity. She will follow up with PCP and also has an appointment with Dr Aguiar's office in a couple weeks. (2) Chronic respiratory failure with hypoxia and hypercapnia: Code(s): J96.11 - Chronic respiratory failure with hypoxia; J96.12 - Chronic respiratory failure with hypercapnia Status: Acute Assessment and Plan: (3) Atrial fibrillation, chronic: Code(s): I48.20 - Chronic atrial fibrillation, unspecified Status: Chronic Assessment and Plan: Rate controlled maintained on her home metoprolol and anticoagulation with home Xarelto. Telemetry shows a fib rate 90s. (4) Chronic diastolic (congestive) heart failure: Code(s): I50.32 - Chronic diastolic (congestive) heart failure Status: Chronic Assessment and Plan: Chronic diastolic; appears well-compensated. Last echocardiogram 2015 shows normal EF 60-65%, grade I diastolic dysfunction without wall motion abnormalities. BNP is within normal limits for her age. (5) Essential (primary) hypertension: Code(s): I10 - Essential (primary) hypertension Status: Chronic Assessment and Plan: BP is stable maintained on her home Norvasc, lisinopril, and metoprolol. (6) Diabetic nephropathy associated with type 2 diabetes mellitus: Code(s): E11.21 - Type 2 diabetes mellitus with diabetic nephropathy Status: Acute Assessment and Plan: A1c is 8.0. (7) MARCELO (obstructive sleep apnea): Code(s): G47.33 - Obstructive sleep apnea (adult) (pediatric) Status: Acute Assessment and Plan: CPAP. (8) Hypercholesterolemia: Code(s): E78.00 - Pure hypercholesterolemia, unspecified Status: Chronic Assessment and Plan: Continue home statin therapy. DS: Summary Time Spent with Patient Time attestation: Total time spent providing and/or coordinating discharge services: 35 minutes Exam Narrative: Exam Narrative: General: Female resting comfortably sitting up in bed in no acute distress. HEENT: Normocephalic, EOMI, oral mucosa moist. Cardiovascular: Rate and rhythm are regular. Respiratory: Faint wheezing MATTHEW, improved from yesterday. Non-labored breathing. Abdomen: Soft, non-tender, non-distended, bowel sounds present. Extremities: Peripheral pulses intact. No edema. Negative Justice's bilaterally. Neuro: No focal neurological deficits. Speech is clear. DS: Data Data Completed and Pending Labs on d
== END 2019-11-30 12:51 | disposition home or self-care (01) ==
LOC: ANHED 10:03 → ANH3MEDSUR 14:48
PROVIDERS: Nurse Practitioner; Admitting Provider Internal Medicine; Emergency Provider General Practice; Visit Provider Internal Medicine
DX: J44.1 Chronic obstructive pulmonary disease with (acute) exacerbation (principal); Z20.828 Contact with and (suspected) exposure to other viral communicable diseases; I48.20 Chronic atrial fibrillation, unspecified; J96.11 Chronic respiratory failure with hypoxia; J96.12 Chronic respiratory failure with hypercapnia; I11.0 Hypertensive heart disease with heart failure; I50.32 Chronic diastolic (congestive) heart failure; E11.21 Type 2 diabetes mellitus with diabetic nephropathy; E11.44 Type 2 diabetes mellitus with diabetic amyotrophy; G47.33 Obstructive sleep apnea (adult) (pediatric); E78.00 Pure hypercholesterolemia, unspecified; Z87.891 Personal history of nicotine dependence; Z99.81 Dependence on supplemental oxygen; Z79.01 Long term (current) use of anticoagulants; Z79.4 Long term (current) use of insulin; Z79.899 Other long term (current) drug therapy
CPT/HCPCS: 36415; 36600; 71045; 71275; 80053; 82375; 82728; 82805; 83036; 83050; 83615; 83735; 83880; 85025; 85610; 85730; 86140; 87635; 93005; 94618; 94640; 96374; 96376; 99285; A9270; C9803; G0378; J1815; J2930; J7512; Q9967; U0003

== ENCOUNTER 2019-12-19 22:29 | Emergency (ER) | payer OTHER, MEDICAID, SELFPAY ==
[2019-12-19 22:32] VITALS: BP 127/85; PULSE 104; RESP 20; TEMP 36.7; O2SAT 95
[2019-12-19 22:52] LABS: Basophils Percent Auto 0.3 % (0.2-1.2); Hematocrit 39.2 % (37.0-47.0); Hemoglobin 12.4 g/dL (12.0-15.0); Immature Granulocyte Absolute 0.02 K/mm3 (0.00-0.031); Immature Granulocyte Percent A 0.3 % (0-0.5); Lymphocytes Absolute Auto 1.11 K/mm3 (0.9-3.2); Lymphocytes Percent Auto 15.1 % (18.3-44.2); Mean Corpuscular HGB Conc 31.6 g/dl (32-36); Mean Corpuscular Hemoglobin 29.2 pg (26-34); Mean Corpuscular Volume 92.5 fl (80-100); Mean Platelet Volume 11.4 fl (7.4-10.4); Monocytes Absolute Auto 0.6 K/mm3 (0.1-0.6); Monocytes Percent Auto 7.6 % (2.6-8.5); Neutrophils Absolute Auto 5.7 K/mm3 (1.3-6.7); Neutrophils Percent Auto 76.7 % (45.5-73.1); Platelet Count Result 211 k/mm3 (150-375); Red Blood Count 4.24 M/mm3 (4.2-5.4); Red Cell Distribution Width 15.1 % (11.5-14.5); White Blood Count 7.4 K/mm3 (4.5-10.0)
[2019-12-19 22:56] VITALS: BP 127/85; PULSE 104; RESP 20; O2SAT 98
[2019-12-19] MEDS: ONDANSETRON INJ 4 MG/2 ML VIAL IV PUSH (22:57)
[2019-12-19 22:59] LABS: Alanine Aminotransferase 29 U/L (4-35); Albumin Level 4.3 g/dL (3.5-5.1); Alkaline Phosphatase 66 U/L (38-126); Anion Gap 12 mmol/L (8-16); Aspartate Amino Transferase 26 U/L (14-36); Bilirubin,Total 0.5 mg/dL (0.2-1.3); Blood Urea Nitrogen 23 mg/dL (7-17); Calcium 8.8 mg/dL (8.4-10.2); Carbon Dioxide 25 mmol/L (22-30); Chloride 101 mmol/L (98-107); Estimated Glomerular Filt Rate > 60; Glucose 292 mg/dL (65-105); Lipase 25 U/L (23-300); Potassium 4.2 mmol/L (3.4-5.0); Sodium 138 mmol/L (137-145)
[2019-12-19 23:06] LABS: Add Urine Microscopic? YES; Appearance Urine Clear (Clear); Bacteria Urine Trace /hpf; Bilirubin Urine Negative (Negative); Blood Urine Negative (Negative); Color Urine Yellow (Yellow); Glucose Urine UA 3+ mg/dL (Negative); Ketones Urine Trace mg/dL (Negative); Leukocyte Esterase Ur Negative LEU/UL (Negative); Mucus Urine Few /lpf; Nitrate Urine Negative (Negative); Protein Urine 1+ mg/dL (Negative); Specific Grav Ur 1.024 (1.001-1.035); Squamous Epithelial Cell Urine Few /hpf (Few); WBC Urine 0-3 /hpf
[2019-12-19 23:57] VITALS: BP 115/84; PULSE 98; RESP 20; O2SAT 98
[2019-12-20 00:49] VITALS: BP 131/91; PULSE 96; RESP 20; O2SAT 99
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
[2019-12-20 01:41] VITALS: BP 131/91; PULSE 98; RESP 20; O2SAT 98
== END 2019-12-20 01:47 | disposition home or self-care (01) ==
PROVIDERS: Emergency Provider Emergency Medicine
DX: R11.2 Nausea with vomiting, unspecified (principal); E11.22 Type 2 diabetes mellitus with diabetic chronic kidney disease; I13.0 Hypertensive heart and chronic kidney disease with heart failure and stage 1 through stage 4 chronic kidney disease, or unspecified chronic kidney disease; N18.4 Chronic kidney disease, stage 4 (severe); Z79.84 Long term (current) use of oral hypoglycemic drugs; J44.9 Chronic obstructive pulmonary disease, unspecified; I48.20 Chronic atrial fibrillation, unspecified; Z79.01 Long term (current) use of anticoagulants; M19.90 Unspecified osteoarthritis, unspecified site; E11.44 Type 2 diabetes mellitus with diabetic amyotrophy; J96.12 Chronic respiratory failure with hypercapnia; Z87.891 Personal history of nicotine dependence; J96.11 Chronic respiratory failure with hypoxia; E78.00 Pure hypercholesterolemia, unspecified; Z87.440 Personal history of urinary (tract) infections; G47.30 Sleep apnea, unspecified; Z98.42 Cataract extraction status, left eye; Z98.41 Cataract extraction status, right eye
CPT/HCPCS: 36415; 80053; 81001; 83690; 85025; 96374; 99284; J2405

== ENCOUNTER 2020-02-22 16:54 | Emergency (ER) | payer OTHER, MEDICAID, SELFPAY ==
--- NOTE | ~2020-02-22 | XR_ITS ---
XR chest 2V DATE: 02/22/2020 17:34 INDICATION: Productive cough and fever. Past smoker. TECHNIQUE: 2 views COMPARISON: 11/29/2019 CT pulmonary scan 11/28/2019 portable AP chest FINDINGS: Mild cardiomegaly. Aortic calcification and mild unfolding. No hilar or mediastinal enlarge ment is evident. The lungs are hyperinflated suggesting COPD. There is evidence of old pulmonary granulomatous disease . There is mild discoid atelectasis or scarring in the left mid and right lower lung zones. Diffuse osteopenia. Degenerative changes of thoracic and lumbar spine. IMPRESSION: Mild cardiomegaly Bilateral hyperinflation suggesting COPD Old pulmonary granulomatous disease Mild discoid atelectasis or scarring in the left mid and right lower lung zones Reviewed, dictated and finalized at location A. ICAL ASSOCIATE
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
[2020-02-22 17:05] VITALS: BP 104/74; PULSE 114; RESP 36; TEMP 37.8; O2SAT 95
[2020-02-22 17:19] VITALS: PULSE 114; RESP 36; O2SAT 95
[2020-02-22] MEDS: ALBUTEROL SULFATE NEB 2.5 MG/3 ML INH INHALATION (17:25)
[2020-02-22] MEDS: IPRATROPIUM BR 0.02% INH SOLN 0.5 MG/2.5 ML VIAL INHALATION (17:25)
[2020-02-22 17:40] VITALS: PULSE 104; RESP 28; O2SAT 94
[2020-02-22 18:20] VITALS: PULSE 104; RESP 30; O2SAT 94
== END 2020-02-22 18:20 | disposition short-term general hospital (02) ==
PROVIDERS: Emergency Provider Nurse Practitioner Family
DX: R06.02 Shortness of breath (principal); R50.9 Fever, unspecified; Z87.891 Personal history of nicotine dependence; I13.0 Hypertensive heart and chronic kidney disease with heart failure and stage 1 through stage 4 chronic kidney disease, or unspecified chronic kidney disease; E11.22 Type 2 diabetes mellitus with diabetic chronic kidney disease; N18.4 Chronic kidney disease, stage 4 (severe); I50.9 Heart failure, unspecified; Z79.4 Long term (current) use of insulin; M19.90 Unspecified osteoarthritis, unspecified site; I48.91 Unspecified atrial fibrillation; E78.00 Pure hypercholesterolemia, unspecified; G47.30 Sleep apnea, unspecified
CPT/HCPCS: 71046; 87081; 87804; 87880; 99213; G0463

== ENCOUNTER 2020-02-22 18:58 | Emergency (ER) | payer OTHER, MEDICAID, SELFPAY ==
--- NOTE | ~2020-02-22 | XR_ITS ---
XR chest 1V portable DATE: 02/22/2020 19:57 INDICATION: Cough and shortness of breath for 3 days. History of COPD, congestive heart failure, asth ma, hypertension TECHNIQUE: Portable upright AP chest on 03/03/2020 at 1958 hours COMPARISON: 02/22/2020 2 view chest FINDINGS: There is cardiomegaly. There is pulmonary vascular redistribution which may indicate mild p ulmonary venous hypertension. No pulmonary infiltrate or consolidation or racemic pleural effusion or pneumothorax is detected. Calcified pulmonary granuloma in the right mid lung and calcified right pa ratracheal lymph nodes, consistent with old granulomatous disease Diffuse osteopenia. IMPRESSION: Cardiomegaly, pulmonary vascular redistribution, the latter which may indicate pulmonary vascular redistribution, possibly due to mild mild congestive heart failure Reviewed, dictated and finalized at location A. 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
[2020-02-22 19:26] VITALS: BP 109/75; PULSE 96; RESP 22; TEMP 37.1; O2SAT 94
--- NOTE | 2020-02-22 19:29 | ECG_ITS ---
Measurements Intervals [place] Rate: 99 P: CO: 0 QRS: 17 QRSD: 94 T: 68 QT: 335 QTc: 431 Interpretive Statements ATRIAL FIBRILLATION VENTRICULAR PREMATURE COMPLEX INCOMPLETE RIGHT BUNDLE BRANCH BLOCK BORDERLINE ST-T WAVE ABNORMALITY- HIGH LATERAL LEADS BASELINE ARTIFACT- I, II, III, AVR, AVL, AVF ABNORMAL ECG Electronically Signed On 02-22-2020 20:18:41 INSTRUCTIONAL DESIGN TECHNOLOGIST by Gonsalo Salmon D.O.
[2020-02-22 20:25] LABS: Basophils Absolute Auto 0.1 K/mm3 (0.0-0.1); Basophils Percent Auto 0.8 % (0.2-1.2); Eosinophils Absolute Auto 0.2 K/mm3 (0-0.3); Eosinophils Percent Auto 2.6 % (0-4.4); Hemoglobin 12.5 g/dL (12.0-15.0); Immature Granulocyte Absolute 0.05 K/mm3 (0.00-0.031); Immature Granulocyte Percent A 0.7 % (0-0.5); Lymphocytes Absolute Auto 1.07 K/mm3 (0.9-3.2); Lymphocytes Percent Auto 14.2 % (18.3-44.2); Mean Corpuscular HGB Conc 32.9 g/dl (32-36); Mean Corpuscular Hemoglobin 28.9 pg (26-34); Mean Corpuscular Volume 87.8 fl (80-100); Mean Platelet Volume 10.8 fl (7.4-10.4); Monocytes Absolute Auto 1.8 K/mm3 (0.1-0.6); Monocytes Percent Auto 24.3 % (2.6-8.5); Neutrophils Absolute Auto 4.3 K/mm3 (1.3-6.7); Neutrophils Percent Auto 57.4 % (45.5-73.1); Platelet Count Result 237 k/mm3 (150-375); Red Blood Count 4.33 M/mm3 (4.2-5.4); Red Cell Distribution Width 15.8 % (11.5-14.5); White Blood Count 7.6 K/mm3 (4.5-10.0)
[2020-02-22 20:58] LABS: NT Pro B Type Natriuretic Pept 488 PG/ML (5-100)
[2020-02-22 21:10] LABS: Anion Gap 12 mmol/L (8-16); Blood Urea Nitrogen 17 mg/dL (7-17); Calcium 8.8 mg/dL (8.4-10.2); Carbon Dioxide 24 mmol/L (22-30); Chloride 102 mmol/L (98-107); Estimated CRCL calculation 70 ml/min; Estimated Glomerular Filt Rate > 60; Glucose 171 mg/dL (65-105); Potassium 4.2 mmol/L (3.4-5.0); Sodium 138 mmol/L (137-145)
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
[2020-02-22] MEDS: ACETAMINOPHEN 325 MG TABLET 650 MG PO (21:58)
[2020-02-22] MEDS: predniSONE 40 MG, predniSONE 10 MG 50 MG PO (21:59)
[2020-02-22 22:55] VITALS: BP 123/88; PULSE 93; RESP 19; O2SAT 92
[2020-02-24 14:13] LABS: SARS-CoV-2 RNA PCR Positive
== END 2020-02-22 21:00 | disposition home or self-care (01) ==
PROVIDERS: Emergency Provider Emergency Medicine
DX: U07.1 COVID-19 (principal); J44.9 Chronic obstructive pulmonary disease, unspecified; I48.20 Chronic atrial fibrillation, unspecified; E11.22 Type 2 diabetes mellitus with diabetic chronic kidney disease; I13.0 Hypertensive heart and chronic kidney disease with heart failure and stage 1 through stage 4 chronic kidney disease, or unspecified chronic kidney disease; N18.4 Chronic kidney disease, stage 4 (severe); Z87.891 Personal history of nicotine dependence; Z79.01 Long term (current) use of anticoagulants; Z79.4 Long term (current) use of insulin; J96.11 Chronic respiratory failure with hypoxia; J96.12 Chronic respiratory failure with hypercapnia; E11.44 Type 2 diabetes mellitus with diabetic amyotrophy; E78.00 Pure hypercholesterolemia, unspecified; G47.30 Sleep apnea, unspecified; Z87.440 Personal history of urinary (tract) infections; Z98.49 Cataract extraction status, unspecified eye; I49.3 Ventricular premature depolarization; I45.10 Unspecified right bundle-branch block
CPT/HCPCS: 36415; 71045; 71046; 80048; 83880; 85025; 87081; 87635; 87804; 87880; 93005; 99284; A9270; C9803; J7512; U0003

== ENCOUNTER 2020-11-28 16:44 | Emergency (ER) | payer OTHER, MEDICAID, SELFPAY ==
--- NOTE | ~2020-11-28 | XR_ITS ---
XR lumbar spine 2-3V DATE: 11/28/2020 22:21 INDICATION: Right lower back pain. No injury TECHNIQUE: AP, lateral, coned lateral lumbosacral views COMPARISON: None FINDINGS: There is mild rotatory dextroscoliosis of the thoracolumbar spine. Diffuse osteopenia. There is degenerative disease throughout the lumbar and lumbosacral spine, most pronounced at L1-2 an d L5-S1. No fracture or bone destruction is detected. The lumbar and included lower thoracic pedicles are inta ct. No spondylolisthesis. The sacroiliac joints are intact, with degenerative change. IMPRESSION: Mild rotatory dextroscoliosis of the thoracolumbar spine Osteopenia Multilevel degenerative disc disease Reviewed, dictated and finalized at location A.
[2020-11-28 17:10] VITALS: BP 115/75; PULSE 81; RESP 20; TEMP 36.4; O2SAT 97
[2020-11-28 19:13] VITALS: BP 111/70; PULSE 83; RESP 20; TEMP 36.4; O2SAT 97
[2020-11-28 20:23] VITALS: BP 141/86; PULSE 84; RESP 21; O2SAT 98
[2020-11-28] MEDS: CYCLOBENZAPRINE HCL 10 MG TABLET PO (22:03)
[2020-11-28] MEDS: HYDROcodone/acetaminophen (*CRX) 5-325 MG TABLET 1 TAB PO (22:03)
[2020-11-28 22:08] VITALS: BP 133/91; PULSE 91; RESP 24; O2SAT 97
[2020-11-28 22:22] LABS: Add Urine Microscopic? YES; Appearance Urine Clear (Clear); Bilirubin Urine Negative (Negative); Blood Urine Negative (Negative); Color Urine Straw (Yellow); Glucose Urine UA 3+ mg/dL (Negative); Ketones Urine Trace mg/dL (Negative); Leukocyte Esterase Ur Negative LEU/UL (Negative); Nitrate Urine Negative (Negative); Protein Urine Negative (Negative); RBC Urine 0-2 /hpf (0-2); Specific Grav Ur 1.027 (1.001-1.035)
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
[2020-11-28 23:04] VITALS: BP 132/87; PULSE 90; RESP 20; O2SAT 95
== END 2020-11-28 23:05 | disposition home or self-care (01) ==
PROVIDERS: Emergency Provider Emergency Medicine
DX: M54.5 Low back pain (principal); Z79.01 Long term (current) use of anticoagulants; Z79.4 Long term (current) use of insulin; Z79.899 Other long term (current) drug therapy; J44.9 Chronic obstructive pulmonary disease, unspecified; I48.20 Chronic atrial fibrillation, unspecified; E11.22 Type 2 diabetes mellitus with diabetic chronic kidney disease; I13.0 Hypertensive heart and chronic kidney disease with heart failure and stage 1 through stage 4 chronic kidney disease, or unspecified chronic kidney disease; N18.4 Chronic kidney disease, stage 4 (severe); J96.11 Chronic respiratory failure with hypoxia; J96.12 Chronic respiratory failure with hypercapnia; E78.00 Pure hypercholesterolemia, unspecified; Z87.01 Personal history of pneumonia (recurrent); G47.30 Sleep apnea, unspecified; Z87.440 Personal history of urinary (tract) infections; E11.44 Type 2 diabetes mellitus with diabetic amyotrophy; Z98.49 Cataract extraction status, unspecified eye; Z87.891 Personal history of nicotine dependence
CPT/HCPCS: 72100; 81001; 99283; A9270

== ENCOUNTER 2020-12-12 13:54 | Outpatient (CLI) | payer OTHER, MEDICAID, SELFPAY ==
--- NOTE | ~2020-12-12 | CT_ITS ---
EXAMINATION:CT lung screening DATE: 12/12/2020 14:19 INDICATION: Personal history of tobacco dependence. Smoker who quit 6 years ago with 20 pack-year his tory. TECHNIQUE: Computed tomography (CT) of the chest was performed without intravenous contrast. Automate d exposure control and iterative reconstruction technique were employed. The dose-length product (DLP ) was 168.73 mGy-cm. COMPARISON: Chest CT 11/29/2019 FINDINGS: There is mild emphysema. There is mild atelectasis bilaterally. Calcified bilateral pulmona ry nodules and calcified hilar and mediastinal lymph nodes are consistent with old granulomatous dise ase. There is a chronic 5 mm nodule at minor fissure. There are a few scattered nodules measuring up to 3 mm. No pleural effusion. Cardiomegaly is noted. There are coronary artery calcifications. There are calcifications of aortic valve. No pericardial effusion. There is severe degenerative disc diseas e at T11-T12. IMPRESSION: 1. Lung-RADS category 2: Benign appearance or behavior. Continue annual screening with noncontrast lo w-dose chest CT in 12 months. Reviewed, dictated and finalized at location A. IMPRESSION: 1. Lung-RADS category 2: Benign appearance or behavior. Continue annual screeni ng with noncontrast low-dose chest CT in 12 months.
== END 2020-12-12 13:55 | disposition home or self-care (01) ==
PROVIDERS: Visit Provider Nurse Practitioner Family
DX: Z12.2 Encounter for screening for malignant neoplasm of respiratory organs (principal); Z87.891 Personal history of nicotine dependence
CPT/HCPCS: 71271

== ENCOUNTER 2021-10-30 13:00 | Outpatient (RCR) | payer OTHER, MEDICAID, SELFPAY | END 2021-10-30 23:59 | disposition home or self-care (01) | LOC: ANHAUDIO 13:00 | DX: Z46.1 Encounter for fitting and adjustment of hearing aid (principal); H90.3 Sensorineural hearing loss, bilateral | CPT/HCPCS: 99199 ==

== ENCOUNTER 2021-12-13 13:33 | Outpatient (CLI) | payer OTHER, MEDICAID, SELFPAY ==
--- NOTE | ~2021-12-13 | CT_ITS ---
EXAMINATION: CT lung screening DATE: 12/13/2021 13:56 INDICATION: Annual screening TECHNIQUE: Computed tomography (CT) of the chest was performed without intravenous contrast. Addition al 3D reconstructions utilizing coronal maximum intensity projection (MIP) were performed. Automated exposure control and iterative reconstruction technique were employed. The dose-length product was 24 6.10 mGy-cm. COMPARISON: 12/12/2020 FINDINGS: Mild emphysema. A few small bilateral calcified pulmonary nodules along with calcified bilateral jeremias r and mediastinal lymph nodes consistent with old granulomatous disease. Unchanged 4 mm nodule in the right middle lobe near the junction of the major and minor fissures. Slight increase in size of a pr eviously 6 x 3 mm, currently 8 x 4 mm nodule. Unchanged minimal linear atelectasis/scarring at the ba silar right middle and left lower lobes. No pneumonia, pulmonary edema or pleural effusion. Mild card iomegaly. Small amount of atherosclerotic coronary artery calcific a sheath. No pericardial effusion. Thoracic aorta is normal in caliber. No pathologically enlarged thoracic lymphadenopathy. Moderate t o severe disc height loss with associated degenerative cystic endplate changes at T11-T12 and L1-L2. IMPRESSION: 1. Lung-RADS category 4A (Suspicious, 5-15% chance of malignancy) with slight interval enlargement of an 8 x 4 mm nodule along the right minor fissure. Recommend 3 month follow-up low-dose noncontrast c hest CT. Reviewed, dictated and finalized at location A. IMPRESSION: 1. Lung-RADS category 4A (Suspicious, 5-15% chance of malignancy) with slight i nterval enlargement of an 8 x 4 mm nodule along the right minor fissure. Recomm end 3 month follow-up low-dose noncontrast chest CT.
== END 2021-12-13 13:34 | disposition home or self-care (01) ==
LOC: ANHIMG 13:39
PROVIDERS: PCP Student in an Organized Health Care Education/Training Program; Visit Provider Nurse Practitioner Family
DX: Z12.2 Encounter for screening for malignant neoplasm of respiratory organs (principal); Z87.891 Personal history of nicotine dependence; R91.8 Other nonspecific abnormal finding of lung field
CPT/HCPCS: 71271

== ENCOUNTER 2021-12-24 11:09 | Emergency (ER) | payer MEDICARE, MEDICAID, SELFPAY ==
--- NOTE | ~2021-12-24 | XR_ITS ---
XR chest 2V DATE: 12/24/2021 11:44 INDICATION: Shortness of breath. History of congestive heart failure, COPD and pneumonia. TECHNIQUE: PA and lateral views COMPARISON: 12/13/2021 CT lung screening 03/03/2020 2 view chest FINDINGS: Moderate bilateral hyperinflation. Calcified right lower lobe pulmonary granuloma. There is mild discoid atelectasis or scarring of the left midlung. No pulmonary infiltrate or consolidation, pleural effusion or pulmonary vascular congestion or pneumo thorax is detected. Heart size appears within normal limits. IMPRESSION: No significant change since 02/22/2020 Reviewed, dictated and finalized at location A.
[2021-12-24 11:11] VITALS: BP 130/77; PULSE 93; RESP 20; TEMP 36.1; O2SAT 100
[2021-12-24 11:24] VITALS: BP 135/68; PULSE 103; RESP 22; O2SAT 98
[2021-12-24 11:28] VITALS: PULSE 89; O2SAT 96
--- NOTE | 2021-12-24 11:28 | ECG_ITS ---
Measurements Intervals [place] Rate: 91 P: IA: 0 QRS: 33 QRSD: 90 T: 61 QT: 340 QTc: 418 Interpretive Statements ATRIAL FIBRILLATION INCOMPLETE RIGHT BUNDLE BRANCH BLOCK BORDERLINE ST-T WAVE ABNORMALITY- HIGH LATERAL LEADS BASELINE ARTIFACT- I, II, III, AVR, AVL, AVF, V2 ABNORMAL ECG COMPARED TO ECG 02/22/2020 19:32:36 NO SIGNIFICANT CHANGES Electronically Signed On 12-24-2021 12:21:35 CDT by Gonsalo Salmon D.O.
[2021-12-24 11:38] LABS: Basophils Absolute Auto 0.1 K/mm3 (0.0-0.1); Basophils Percent Auto 0.8 % (0.2-1.2); Eosinophils Absolute Auto 0.7 K/mm3 (0-0.3); Eosinophils Percent Auto 8.9 % (0-4.4); Hematocrit 40.6 % (37.0-47.0); Hemoglobin 12.9 g/dL (12.0-15.0); Immature Granulocyte Absolute 0.02 K/mm3 (0.00-0.031); Immature Granulocyte Percent A 0.3 % (0-0.5); Lymphocytes Absolute Auto 1.58 K/mm3 (0.9-3.2); Lymphocytes Percent Auto 21.6 % (18.3-44.2); Mean Corpuscular HGB Conc 31.8 g/dl (32-36); Mean Corpuscular Hemoglobin 28.7 pg (26-34); Mean Corpuscular Volume 90.2 fl (80-100); Mean Platelet Volume 10.8 fl (7.4-10.4); Monocytes Absolute Auto 0.8 K/mm3 (0.1-0.6); Monocytes Percent Auto 10.3 % (2.6-8.5); Neutrophils Absolute Auto 4.3 K/mm3 (1.3-6.7); Neutrophils Percent Auto 58.1 % (45.5-73.1); Platelet Count Result 273 k/mm3 (150-375); Red Cell Distribution Width 15.5 % (11.5-14.5); White Blood Count 7.3 K/mm3 (4.5-10.0)
[2021-12-24 11:47] LABS: Alanine Aminotransferase 33 U/L (6-35); Albumin Level 4.3 g/dL (3.5-5.1); Alkaline Phosphatase 89 U/L (38-126); Anion Gap 11 mmol/L (8-16); Aspartate Amino Transferase 32 U/L (14-36); Bilirubin,Total 0.7 mg/dL (0.2-1.3); Blood Urea Nitrogen 16 mg/dL (7-17); Calcium 8.9 mg/dL (8.4-10.2); Carbon Dioxide 23 mmol/L (22-30); Chloride 105 mmol/L (98-107); Estimated CRCL calculation 79 ml/min; Estimated Glomerular Filt Rate > 60; Glucose 281 mg/dL (65-110); Potassium 4.5 mmol/L (3.4-5.0); Sodium 139 mmol/L (137-145)
[2021-12-24] MEDS: IPRATROPIUM BR 0.02% INH SOLN 0.5 MG/2.5 ML VIAL INHALATION (12:34)
[2021-12-24] MEDS: ALBUTEROL SULFATE NEB 2.5 MG/3 ML INH 5 MG INHALATION (12:34)
[2021-12-24 12:35] VITALS: PULSE 78; RESP 20
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
[2021-12-24 13:05] VITALS: PULSE 84; RESP 20
[2021-12-24 13:07] LABS: Influenza A QL RT-PCR Negative (Negative); Influenza B QL RT-PCR Negative (Negative); SARS-CoV-2 RNA PCR Negative
[2021-12-24 13:45] VITALS: BP 128/76; PULSE 92; RESP 18; O2SAT 100
== END 2021-12-24 14:09 | disposition home or self-care (01) ==
PROVIDERS: Emergency Medicine; Emergency Provider Emergency Medicine; PCP Student in an Organized Health Care Education/Training Program
DX: J44.9 Chronic obstructive pulmonary disease, unspecified (principal); I13.0 Hypertensive heart and chronic kidney disease with heart failure and stage 1 through stage 4 chronic kidney disease, or unspecified chronic kidney disease; E11.22 Type 2 diabetes mellitus with diabetic chronic kidney disease; I50.9 Heart failure, unspecified; N18.4 Chronic kidney disease, stage 4 (severe); J96.12 Chronic respiratory failure with hypercapnia; J96.11 Chronic respiratory failure with hypoxia; F41.9 Anxiety disorder, unspecified; I48.20 Chronic atrial fibrillation, unspecified; E78.00 Pure hypercholesterolemia, unspecified; G47.30 Sleep apnea, unspecified; Z87.891 Personal history of nicotine dependence; Z79.84 Long term (current) use of oral hypoglycemic drugs; Z79.4 Long term (current) use of insulin; Z79.01 Long term (current) use of anticoagulants; Z79.51 Long term (current) use of inhaled steroids; Z20.822 Contact with and (suspected) exposure to COVID-19
CPT/HCPCS: 36415; 71046; 80053; 85025; 87502; 93005; 94640; 99284; C9803; U0003; U0005

== ENCOUNTER 2022-02-15 11:59 | Outpatient (CLI) | payer OTHER, MEDICAID, SELFPAY ==
--- NOTE | ~2022-02-15 | MMUS_ITS ---
EXAMINATION: MM diagnostic isra LT w tiesha, US breast LT limited HISTORY: Follow-up left breast masses TECHNIQUE: Additional 3-D tomosynthesis images of the left breast were performed and synthetic 2-D im ages were generated. CAD analysis was submitted and interpreted. High resolution Limited left breast ultrasound was performed. COMPARISON: Comparison to multiple prior studies sequentially, with oldest reviewed study dated 10/02. BREAST PARENCHYMAL COMPOSITION: The breasts are heterogeneously dense, which may obscure small masses 1 FINDINGS: MAMMOGRAPHIC FINDINGS: There are 2 separate 3 mm nodules in the lower inner quadrant of the left breast. No suspicious calci fications or architectural distortion. ULTRASOUND: Limited left breast ultrasound: There are 2 tiny 2 mm cyst of the left breast at 8:00 10 cm from the nipple. These correspond to the mammographic abnormalities. No suspicious masses to suggest malignanc y. IMPRESSION: 1. No evidence for malignancy in the left breast. Benign findings. 2. Routine yearly screening mammogram and regular clinical breast examination are recommended. BI-RADS Category 2: Benign finding(s). Reviewed, dictated and finalized at location A. IMPRESSION: 1. No evidence for malignancy in the left breast. Benign findings. 2. Routine yearly screening mammogram and regular clinical breast examination a re recommended. BI-RADS Category 2: Benign finding(s).
== END 2022-02-15 12:00 | disposition home or self-care (01) ==
PROVIDERS: PCP Student in an Organized Health Care Education/Training Program; Visit Provider Student in an Organized Health Care Education/Training Program
DX: R92.8 Other abnormal and inconclusive findings on diagnostic imaging of breast (principal)
CPT/HCPCS: 76642; 77061; 77065; G0279

== ENCOUNTER 2022-02-19 08:25 | Outpatient (CLI) | payer OTHER, MEDICAID, SELFPAY ==
--- NOTE | 2022-02-19 | ECHO_ITS ---
Patient Info Name: Nano Gayle Age: 71 years : 1950 Gender: Female Ht: 66 in Wt: 215 lbs BSA: 2.17 m2 HR: 84 bpm BP: 108 / 80 mmHg Heart Rhythm: Atrial Fibrillation Exam Date: 02/19/2022 9:28 AM Exam Location: [facility] Patient Status: Outpatient Admit Date: 02/19/2022 Staff Ordering Physician: Rashmi, Armando Caballero MD Deli Worker: Naveed Hernández, RDCS, RT Attending Provider: Rashmi, Armando Caballero MD Referring Physician: Rashmi TOTH; Exam Type: CA echo doppler color flow Study Info Indications - CHF I50.9 CAD I25.10 R06.02 - Shortness of breath Complete two-dimensional, color flow and Doppler transthoracic echocardiogram is performed. Summary 1. Complete two-dimensional, color flow and Doppler transthoracic echocardiogram is performed. 2. Left ventricular systolic function is normal, estimated at 50-55%. 3. Moderate biatrial dilation. 4. Mildly sclerotic aortic valve which is not stenotic. Left Ventricle Left ventricular systolic function is normal, estimated at 50-55%. Left ventricular chamber dimension is normal. The left ventricular diastolic function is grade I diastolic dysfunction. Right Ventricle Right ventricular chamber dimension is normal. Left Atria Left atrial chamber dimension is moderately enlarged. Right Atria Right atrial chamber dimension is moderately enlarged. Aortic Valve The aortic valve is trileaflet. There is mild aortic valve sclerosis. Pulmonic Valve The pulmonic valve is not well visualized. Mitral Valve The mitral valve has normal leaflets. Tricuspid Valve The tricuspid valve leaflets are normal. Pericardium/Pleural The pericardium appears normal. Aorta The aortic root size at the sinus of Valsalva is normal. Left Ventricular Outflow Tract Name Value Normal LVOT 2D LVOT Diameter 2.0 cm LVOT Doppler LVOT Peak Gradient 4 mmHg LVOT Mean Gradient 3 mmHg LVOT VTI 23 cm LVOT VTI/AV VTI Ratio 0.6 LVOT Stroke Volume 75 ml LVOT CO 6.2 l/min LVOT CI 2.9 l/min/m2 Mitral Valve Name Value Normal MV Doppler MV Decel [place] 692 cm/s2 MV PHT 55 ms MV Area (PHT) 4.0 cm2 4.0-5.0 MV Diastolic Function MV E Peak Velocity 130 cm/s MV A Peak Velocity 1 cm/s MV E/A 256.1 MV Decel Time 188 ms MV Annular TDI
--- NOTE | ~2022-02-19 | NM_ITS ---
EXAMINATION: NM juanito stress w perfusion DATE: 02/19/2022 13:04 INDICATION: Shortness of breath TECHNIQUE: Rest images were obtained following intravenous administration of 10 mCi Tc99m tetrofosmin (Myoview). Patient terminated the study due to wheezing prior to injection of activity for the stres s images. COMPARISON: None. FINDINGS: There is no definite perfusion defect on the rest images. IMPRESSION: 1. Normal myocardial perfusion at rest. Patient terminated the study prior to the post stress portion of the examination. Reviewed, dictated and finalized at location A. ESSOR OF SPORT MANAGEMENT IMPRESSION: 1. Normal myocardial perfusion at rest. Patient terminated the study prior to t he post stress portion of the examination.
--- NOTE | 2022-02-19 10:58 | PCCARD ---
TAWANA HWANG, DIVISION [employer] WITH [facility] CANCELLED LEXISCAN STRESS TEST DUE TO PATIENT CONDITION. PATIENT WHEEZING TOO MUCH.
== END 2022-02-19 08:26 | disposition home or self-care (01) ==
LOC: ANHCARD 08:27
PROVIDERS: PCP Student in an Organized Health Care Education/Training Program; Visit Provider Internal Medicine Cardiovascular Disease
DX: R06.02 Shortness of breath (principal); I50.9 Heart failure, unspecified; I10 Essential (primary) hypertension; I25.10 Atherosclerotic heart disease of native coronary artery without angina pectoris
CPT/HCPCS: 78452; 93306; A9502

== ENCOUNTER 2022-03-23 14:44 | Outpatient (CLI) | payer OTHER, MEDICAID, SELFPAY ==
--- NOTE | ~2022-03-23 | DEXA_ITS ---
Bone Density Report Name: ROSITA MUNGUIA Age: 71 Sex: Female Ethnicity: Black Date of : 1950 Indication: screening for osteoporosis; height loss; asthma or emphysema; hysterectomy; postmenopausal Referring Provider: ABRAHAN, MARI Study: Bone densitometry was performed. Exam Date: March 23, 2022 Accession number: [id number] Bone Density: Region BMD T-score Z-score Classification AP Spine(L2, L3, L4) 1.069 -0.1 1.5 Normal Femoral Neck (Left) 0.521 -3.0 -1.5 Osteoporosis Total Hip (Left) 0.748 -1.6 -0.6 Osteopenia Femoral Neck (Right) 0.672 -1.6 -0.5 Osteopenia Total Hip (Right) 0.718 -1.8 -0.8 Osteopenia Total Hip Mean 0.733 -1.7 -0.7 Osteopenia World Health Organization criteria for BMD impression classify patients as: Normal (T-score at or above -1.0), Osteopenia (T-score between -1.0 and -2.5), or Osteoporosis (T-score at or below -2.5). 10-year Fracture Risk: FRAX not reported because: Premenopausal woman Some T-score for Spine Total or Hip Total or Femoral Neck at or below -2.5 Clinical Information Provided by Patient: Has used the following medications: Vitamin D, Calcium Has the following medical conditions: Asthma or Emphysema, Hysterectomy Patient maximum height was 66 Menopause Age: 39 No regular weight bearing exercise Does not regularly consume dairy products Drinks caffeinated beverages Onset of menses at age 12 Premenopausal Number of children 3 Impression: The patient's bone mass is within expected range for age, gender and ethnicity. Discussion: BONE DENSITY IS WITHIN EXPECTED LIMITS FOR AGE, SEX AND RACE. Bone density is within expected limits for age, sex and race at all sites measured. The patient should follow a healthful lifestyle (good nutrition with adequate calcium and vitamin D, and appropriate weight-bearing exercise). Follow-Up: Consider a repeat BMD and Vertebral Fracture Assessment (VFA) exam in 2 years or sooner if medically necessary, to reassess this patient's status. Reported by: [facility] on 03/23/2022 3:10:00 PM. Reviewed, dictated and finalized at location Denisse LAWLER
== END 2022-03-23 14:45 | disposition home or self-care (01) ==
LOC: ANHIMG 14:46
PROVIDERS: PCP Student in an Organized Health Care Education/Training Program; Visit Provider Student in an Organized Health Care Education/Training Program
DX: Z78.0 Asymptomatic menopausal state (principal); M85.89 Other specified disorders of bone density and structure, multiple sites; M81.0 Age-related osteoporosis without current pathological fracture
CPT/HCPCS: 77080

== ENCOUNTER 2022-03-29 16:11 | Outpatient (CLI) | payer OTHER, MEDICAID, SELFPAY ==
--- NOTE | ~2022-03-29 | CT_ITS ---
CT Scan of the Chest without Contrast: Clinical Indication: Pulmonary nodule Technique: Contiguous sections were acquired throughout the chest without intravenous contrast. Dose reduction technique was used on this scan by utilizing automated exposure control and iterative recon struction technique. The dose-length product (DLP) was 221.39 mGy-cm. COMPARISON: 12/13/2021 Findings: There is no evidence of any significant mediastinal, hilar or axillary lymphadenopathy. Several small calcified mediastinal lymph nodes are noted. The mediastinal soft tissues appear normal. There is no evidence of pleural or pericardial effusion. Stable nodule along the right minor fissure (sagittal image 37). Minimal scarring at the right middle lobe inferiorly at the left lung base is unchanged. Several calcified granulomas are unchanged. Images through the upper abdomen reveal no abnormalities. Impression: Stable nodule along the right minor fissure, as detailed above. Annual follow-up CT advised. Evidence of prior granulomatous disease. Reviewed, dictated and finalized at location [] ILL HAND Impression: Stable nodule along the right minor fissure, as detailed above. Annual follow-u p CT advised. Evidence of prior granulomatous disease.
== END 2022-03-29 16:12 | disposition home or self-care (01) ==
PROVIDERS: PCP Student in an Organized Health Care Education/Training Program; Visit Provider Nurse Practitioner Family
DX: R91.1 Solitary pulmonary nodule (principal)
CPT/HCPCS: 71250

== ENCOUNTER 2022-04-01 16:21 | Emergency (ER) | payer OTHER, MEDICAID, SELFPAY ==
[2022-04-01 16:30] VITALS: BP 125/112; PULSE 83; RESP 16; TEMP 37.2; O2SAT 98
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
--- NOTE | 2022-04-01 17:24 | PC.NURSE ---
pharmacy called, rx escribed to [facility], called in to [facility].
== END 2022-04-01 17:10 | disposition home or self-care (01) ==
PROVIDERS: Emergency Provider Nurse Practitioner
DX: J32.9 Chronic sinusitis, unspecified (principal); J40 Bronchitis, not specified as acute or chronic; Z20.822 Contact with and (suspected) exposure to COVID-19; Z87.891 Personal history of nicotine dependence; J44.9 Chronic obstructive pulmonary disease, unspecified; M19.90 Unspecified osteoarthritis, unspecified site; I48.20 Chronic atrial fibrillation, unspecified; E78.00 Pure hypercholesterolemia, unspecified; I13.0 Hypertensive heart and chronic kidney disease with heart failure and stage 1 through stage 4 chronic kidney disease, or unspecified chronic kidney disease; E11.22 Type 2 diabetes mellitus with diabetic chronic kidney disease; N18.4 Chronic kidney disease, stage 4 (severe); I50.9 Heart failure, unspecified; Z79.4 Long term (current) use of insulin; Z79.84 Long term (current) use of oral hypoglycemic drugs; E11.44 Type 2 diabetes mellitus with diabetic amyotrophy
CPT/HCPCS: 87426; 87804; 99213; C9803; G0463

== ENCOUNTER 2022-06-13 09:22 | Inpatient (IN) | payer OTHER, MEDICAID, SELFPAY ==
[2022-06-13] VITALS (21 sets, daily range): BP systolic 128–146; BP diastolic 78–98; PULSE 75–108; RESP 16–26; TEMP 36.3–36.6; O2SAT 85–100; BMI 33.0
--- NOTE | ~2022-06-13 | XR_ITS ---
XR chest 2V 06/13/2022 10:02 Indication: Shortness of breath and cough Procedure: PA and lateral views of the chest Comparison: 12/24/2021 Findings: There is chronic lingular atelectasis/scarring. Borderline heart size. Calcified granuloma right mid thorax. No pleural effusion or pneumothorax. No acute osseous abnormality. Impression: 1: Chronic lingular atelectasis/scarring. Reviewed, dictated and finalized at location B. NING COORDINATOR Impression: 1: Chronic lingular atelectasis/scarring.
--- NOTE | 2022-06-13 09:42 | ECG_ITS ---
Measurements Intervals [place] Rate: 90 P: TN: 0 QRS: 40 QRSD: 98 T: 55 QT: 365 QTc: 448 Interpretive Statements ATRIAL FIBRILLATION INCOMPLETE RIGHT BUNDLE BRANCH BLOCK ABNORMAL ECG COMPARED TO ECG 12/24/2021 11:30:44 NO SIGNIFICANT CHANGES Electronically Signed On 06-13-2022 9:51:34 SOURCING COORDINATOR by Gonsalo Salmon D.O.
[2022-06-13 09:55] LABS: Basophils Absolute Auto 0.1 K/mm3 (0.0-0.1); Basophils Percent Auto 0.7 % (0.2-1.2); Eosinophils Absolute Auto 1.1 K/mm3 (0-0.3); Eosinophils Percent Auto 12.7 % (0-4.4); Hematocrit 40.8 % (37.0-47.0); Hemoglobin 12.8 g/dL (12.0-15.0); Immature Granulocyte Absolute 0.03 K/mm3 (0.00-0.031); Immature Granulocyte Percent A 0.3 % (0-0.5); Lymphocytes Absolute Auto 1.75 K/mm3 (0.9-3.2); Mean Corpuscular HGB Conc 31.4 g/dl (32-36); Mean Corpuscular Hemoglobin 29.1 pg (26-34); Mean Corpuscular Volume 92.7 fl (80-100); Mean Platelet Volume 10.6 fl (7.4-10.4); Monocytes Absolute Auto 0.9 K/mm3 (0.1-0.6); Monocytes Percent Auto 10.1 % (2.6-8.5); Neutrophils Absolute Auto 4.9 K/mm3 (1.3-6.7); Neutrophils Percent Auto 56.2 % (45.5-73.1); Platelet Count Result 279 k/mm3 (150-375); Red Cell Distribution Width 15.3 % (11.5-14.5); White Blood Count 8.8 K/mm3 (4.5-10.0)
[2022-06-13 10:06] LABS: Alanine Aminotransferase 32 U/L (6-35); Albumin Level 4.5 g/dL (3.5-5.1); Alkaline Phosphatase 81 U/L (38-126); Anion Gap 9 mmol/L (8-16); Aspartate Amino Transferase 30 U/L (14-36); Bilirubin,Total 0.6 mg/dL (0.2-1.3); Blood Urea Nitrogen 13 mg/dL (7-17); Calcium 8.5 mg/dL (8.4-10.2); Carbon Dioxide 28 mmol/L (22-30); Chloride 104 mmol/L (98-107); Estimated CRCL calculation 100 ml/min; Estimated Glomerular Filt Rate > 60; Glucose 154 mg/dL (65-110); Potassium 3.7 mmol/L (3.4-5.0); Sodium 141 mmol/L (137-145)
[2022-06-13] MEDS: methylPREDNISolone SOD SUCC 125 MG VIAL IV PUSH (10:37)
[2022-06-13] MEDS: ALBUTEROL SULFATE NEB 2.5 MG/3 ML INH 5 MG INHALATION (11:17)
[2022-06-13] MEDS: IPRATROPIUM BR 0.02% INH SOLN 0.5 MG/2.5 ML VIAL INHALATION ×2 (11:17→20:56)
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
[2022-06-13 15:37] LABS: Glucose Point of Care 201 mg/dl (65-105)
--- NOTE | 2022-06-13 16:04 | ADMGEN ---
This patient, Nano Gayle, was admitted to 2 Medical Room 253-01. Patient/family oriented to hospital policies and general routines including ID bracelet, bed and alarms, visiting hours, pain management, procedures, bathroom and other care routines, personal items, smoking policy, room service/diet, and visiting hours. Information on how to activate the Rapid Response Team has been discussed. Patient/Family are encouraged to report perceived risks to care and to ask questions if they do not understand what they are told or what they should do.
[2022-06-13] MEDS: ALBUTEROL SULFATE NEB 2.5 MG/3 ML INH INHALATION (20:56)
[2022-06-13] MEDS: RIVAROXABAN 20 MG TABLET PO (21:21)
[2022-06-13 21:33] LABS: Glucose Point of Care 280 mg/dl (65-105)
[2022-06-13] MEDS: methylPREDNISolone SOD SUCC 125 MG VIAL 60 MG IV PUSH (23:06)
[2022-06-14] VITALS (16 sets, daily range): BP systolic 118–134; BP diastolic 67–86; PULSE 88–104; RESP 18–23; TEMP 36.4–36.7; O2SAT 96–99
--- NOTE | 2022-06-14 | ECHO_ITS ---
Patient Info Name: Nano Gayle Age: 71 years : 1950 Gender: Female Ht: 66 in Wt: 204 lbs BSA: 2.11 m2 HR: 95 bpm BP: 143 / 67 mmHg Exam Date: 06/14/2022 9:59 AM Exam Location: [facility] Patient Status: Outpatient Admit Date: 06/13/2022 Staff Ordering Physician: Mayg Baxter NP Diver Helper: Naveed Hernández RDCS, RT Attending Provider: Smooth Castro MD Referring Physician: Sahil CYR; Exam Type: CA echo dop color flow w con Study Info Indications R07.89 - Other chest pain Complete two-dimensional, color flow and Doppler transthoracic echocardiogram is performed with contrast to opacify the left ventricle and to improve the deliniation of the left ventricle endocardial borders. Summary 1. Left ventricular chamber dimension is normal. 2. Left ventricular systolic function is normal, estimated at >70%. 3. There is mildly increased left ventricular wall thickness. 4. Right ventricular systolic function is normal. 5. Left atrial chamber dimension is moderately enlarged. 6. Right atrial chamber dimension is moderately enlarged. 7. There is mild tricuspid valve regurgitation. 8. Dilated inferior vena cava with >50% collapse upon inspiration consistent with elevated right atrial pressure, 8 mmHg. 9. Pulmonary hypertension with estimated PASP of 50mmHg. Left Ventricle Left ventricular chamber dimension is normal. Left ventricular systolic function is normal, estimated at >70%. There is mildly increased left ventricular wall thickness. Right Ventricle Right ventricular chamber dimension is normal. Right ventricular systolic function is normal. Left Atria Left atrial chamber dimension is moderately enlarged. Right Atria Right atrial chamber dimension is moderately enlarged. Atrial Septum Intact interatrial septum visualized by color flow imaging. Aortic Valve The aortic valve is probable trileaflet. There is no aortic valve stenosis. There is no aortic valve regurgitation. There is mild aortic valve calcification. Pulmonic Valve The pulmonic valve is not well visualized. Mitral Valve The mitral valve has normal leaflets. There is no mitral valve stenosis. There is trace mitral valve regurgitation. Tricuspid Valve There is mild tricuspid valve regurgitation. Pericardium/Pleural There is no pericardial effusion. Inferior Vena Cava Dilated inferior vena cava with >50% collapse upon inspiration consistent with elevated right atrial pressure, 8 mmHg. Aorta The aortic root size at the sinus of Valsalva is normal. Left Ventricular Outflow Tract Name Value Normal LVOT 2D LVOT Diameter 1.89 cm LVOT Doppler LVOT Peak Gradient 6 mmHg LVOT Mean Gradient 3 mmHg LVOT VTI 25.24 cm LVOT VTI/AV VTI Ratio 0.77 LVOT Stroke Volume 70.74 ml LVOT CO 6.66 l/min LVOT CI 3.16 L/min/m2 Mitral Valve
[2022-06-14] MEDS: IPRATROPIUM BR 0.02% INH SOLN 0.5 MG/2.5 ML VIAL INHALATION ×4 (03:26→20:04)
[2022-06-14] MEDS: ALBUTEROL SULFATE NEB 2.5 MG/3 ML INH INHALATION ×4 (03:26→20:04)
[2022-06-14] MEDS: methylPREDNISolone SOD SUCC 125 MG VIAL 60 MG IV PUSH ×3 (05:27→20:14)
[2022-06-14] MEDS: DEXTROMETHORPHAN POLISTIREX 60 MG/10 ML SYRINGE PO ×2 (05:28→17:08)
[2022-06-14 05:56] LABS: Hematocrit 41.7 % (37.0-47.0); Hemoglobin 13.5 g/dL (12.0-15.0); Immature Granulocyte Absolute 0.05 K/mm3 (0.00-0.031); Immature Granulocyte Percent A 0.6 % (0-0.5); Lymphocytes Percent Auto 10.3 % (18.3-44.2); Mean Corpuscular HGB Conc 32.4 g/dl (32-36); Mean Corpuscular Hemoglobin 29.1 pg (26-34); Mean Corpuscular Volume 89.9 fl (80-100); Mean Platelet Volume 10.7 fl (7.4-10.4); Monocytes Absolute Auto 0.2 K/mm3 (0.1-0.6); Monocytes Percent Auto 2.3 % (2.6-8.5); Neutrophils Absolute Auto 6.7 K/mm3 (1.3-6.7); Neutrophils Percent Auto 86.8 % (45.5-73.1); Platelet Count Result 292 k/mm3 (150-375); Red Blood Count 4.64 M/mm3 (4.2-5.4); Red Cell Distribution Width 14.9 % (11.5-14.5); White Blood Count 7.8 K/mm3 (4.5-10.0)
[2022-06-14 06:01] LABS: Alanine Aminotransferase 33 U/L (6-35); Albumin Level 4.8 g/dL (3.5-5.1); Alkaline Phosphatase 88 U/L (38-126); Anion Gap 8 mmol/L (8-16); Aspartate Amino Transferase 29 U/L (14-36); Bilirubin,Total 0.7 mg/dL (0.2-1.3); Blood Urea Nitrogen 14 mg/dL (7-17); Calcium 9.4 mg/dL (8.4-10.2); Carbon Dioxide 29 mmol/L (22-30); Chloride 99 mmol/L (98-107); Estimated CRCL calculation 97 ml/min; Estimated Glomerular Filt Rate > 60; Glucose 182 mg/dL (65-110); Potassium 4.5 mmol/L (3.4-5.0); Sodium 136 mmol/L (137-145)
[2022-06-14 06:06] LABS: Lactic Acid Reflex 1.5 mmol/L (0.7-2.0)
[2022-06-14 06:40] LABS: Thyroid Stimulating Hormone Reflex 0.084 uIU/mL (0.465-4.68)
[2022-06-14 06:45] LABS: Hemoglobin A1C 6.9 % (<5.7)
[2022-06-14 08:03] LABS: Free T4 Free Thyroxine Reflex 1.18 ng/dL (0.78-2.19)
[2022-06-14 08:16] LABS: Glucose Point of Care 173 mg/dl (65-105)
[2022-06-14] MEDS: amLODIPine BESYLATE 5 MG TABLET 10 MG PO (08:38)
[2022-06-14] MEDS: EMPAGLIFLOZIN 10 MG TABLET PO (08:38)
[2022-06-14] MEDS: FLUTICASONE PROPIONATE 0.05% NA SPR 16 GM BTL (*BKC) 2 SPRAY NASAL (08:38)
[2022-06-14] MEDS: ATORVASTATIN 20 MG TABLET PO (08:38)
[2022-06-14] MEDS: ISOSORBIDE MONONITRATE 30 MG TAB.ER.24H PO (08:39)
[2022-06-14] MEDS: lisinopriL 20 MG TABLET PO (08:39)
[2022-06-14] MEDS: METOPROLOL SUCCINATE EXT REL 25 MG TABCR PO (08:39)
[2022-06-14] MEDS: ROFLUMILAST 500 MCG TABLET PO (08:39)
[2022-06-14 09:39] LABS: Influenza A QL RT-PCR Negative (Negative); Influenza B QL RT-PCR Negative (Negative); RSV RNA, RT-PCR Negative (Negative); SARS-CoV-2 RNA PCR Negative
[2022-06-14 09:48] LABS: Total Triiodothyronine (T3) 1.12 NG/ML (0.97-1.69)
[2022-06-14] MEDS: PERFLUTREN LIPID MICROSPHERES 1.5 ML VIAL DILUTED TO 10 ML TOTAL VOLUME IV PUSH (10:10)
--- NOTE | 2022-06-14 10:10 | IVDEFINITY ---
Prior to administration of IV Definity the patient was educated on the risks and benefits of the imaging enhancing agent including potential adverse side effects. The patient verbalized understanding. Allergies were verified. No exclusion criteria were identified and at least one of the following inclusion criteria were met: 1) physician request, 2) patient technically difficult to image (per the [place] [employer] Echocardi[employer] guidelines of two or more segments not discernable within the apical view), or 3) questionable left ventricular function. ?
[2022-06-14 12:15] LABS: Glucose Point of Care 280 mg/dl (65-105)
[2022-06-14] MEDS: INSULIN ASPART (*BKC) 100 UNITS/ML SUB-Q ×2 (12:16→17:09)
--- NOTE | 2022-06-14 12:52 | P.PNIM_ITS ---
Progress Note: A&P Assessment and Plan (1) Acute exacerbation of chronic obstructive airways disease: Code(s): J44.1 - Chronic obstructive pulmonary disease with (acute) exacerbation Status: Acute Assessment and Plan: Patient presented to the ED with increased shortness of breath. Chest x-ray revealed chronic lingular atelectasis/ scarring. * Solu-Medrol q6hr deescalated to q12hr due to improving shortness of breath * Nebulizer treatments as needed * continue with Daliresp * RSV influenza and COVID negative. * sputum culture is pending * Patient weened down to home O2. 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 * Hypoglycemic protocol * Check A1c (3) Hypercholesterolemia: Code(s): E78.00 - Pure hypercholesterolemia, unspecified Status: Chronic Assessment and Plan: Continue with atorvastatin (4) Atrial fibrillation, chronic: Code(s): I48.20 - Chronic atrial fibrillation, unspecified Status: Chronic Assessment and Plan: * continue with Xarelto * continue with metoprolol (5) Chronic respiratory failure with hypoxia and hypercapnia: Code(s): J96.11 - Chronic respiratory failure with hypoxia; J96.12 - Chronic respiratory failure with hypercapnia Status: Acute Assessment and Plan: * the patient is currently on 3 L per nasal cannula and she typically wears 2 L per nasal cannula. (6) Chronic diastolic (congestive) heart failure: Code(s): I50.32 - Chronic diastolic (congestive) heart failure Status: Chronic Assessment and Plan: * Continue with lisinopril * Continue with metoprolol * Patient's last echo was on 02/19/2022 that showed EF 50-55%, biatrial dilation, mildly sclerotic aortic valve. * Repeat echo ordered. (7) Essential (primary) hypertension: Code(s): I10 - Essential (primary) hypertension Status: Chronic Assessment and Plan: * Continue with Norvasc, metoprolol, lisinopril (8) MARCELO (obstructive sleep apnea): Code(s): G47.33 - Obstructive sleep apnea (adult) (pediatric) Status: Acute Assessment and Plan: A CPAP machine has been ordered for the patient for tonight. Subjective Date/time seen: 06/14/22 12:52 Interval history: Patient sitting up in bed and in pleasant mood when I enter the room. Patient states that her shortness of breath has improved. Patient denies chest pain, nausea, vomiting, urinary symptoms in lower extremity swelling. Review of Systems Review of Systems: All systems reviewed & are unremarkable except as noted in HPI and below Exam Narrative: GENERAL: Comfortable, no acute distress HENMT: moist mucous membranes EYES: EOM intact b/l NECK: no lymphadenopathy RESPIRATORY: Diffuse wheezing CARDIO: irregular rhythm, rate controlled GI: soft, nontender, bowel sounds present SKIN: no rashes EXTREMITIES: no edema, redness or tenderness Objective Data Vital Signs Vital Signs:
--- NOTE | 2022-06-14 12:52 | PM.IMPN ---
Progress Note: A&P Assessment and Plan (1) Acute exacerbation of chronic obstructive airways disease: Code(s): J44.1 - Chronic obstructive pulmonary disease with (acute) exacerbation Status: Acute Assessment and Plan: Patient presented to the ED with increased shortness of breath. Chest x-ray revealed chronic lingular atelectasis/ scarring. Solu-Medrol q6hr deescalated to q12hr due to improving shortness of breath Nebulizer treatments as needed continue with Daliresp RSV influenza and COVID negative. sputum culture is pending Patient weened down to home O2. (2) Type 2 diabetes mellitus: Qualifiers: Diabetes mellitus mcfp insulin use: with termination clerk use Code(s): E11.9 - Type 2 diabetes mellitus without complications Status: Chronic Assessment and Plan: Accu-Cheks AC and HS with sliding scale insulin continue Jardiance hold metformin I suspect that patient's blood sugars will be elevated as she is on steroids. Hypoglycemic protocol Check A1c (3) Hypercholesterolemia: Code(s): E78.00 - Pure hypercholesterolemia, unspecified Status: Chronic Assessment and Plan: Continue with atorvastatin (4) Atrial fibrillation, chronic: Code(s): I48.20 - Chronic atrial fibrillation, unspecified Status: Chronic Assessment and Plan: continue with Xarelto continue with metoprolol (5) Chronic respiratory failure with hypoxia and hypercapnia: Code(s): J96.11 - Chronic respiratory failure with hypoxia; J96.12 - Chronic respiratory failure with hypercapnia Status: Acute Assessment and Plan: the patient is currently on 3 L per nasal cannula and she typically wears 2 L per nasal cannula. (6) Chronic diastolic (congestive) heart failure: Code(s): I50.32 - Chronic diastolic (congestive) heart failure Status: Chronic Assessment and Plan: Continue with lisinopril Continue with metoprolol Patient's last echo was on 02/19/2022 that showed EF 50-55%, biatrial dilation, mildly sclerotic aortic valve. Repeat echo ordered. (7) Essential (primary) hypertension: Code(s): I10 - Essential (primary) hypertension Status: Chronic Assessment and Plan: Continue with Norvasc, metoprolol, lisinopril (8) MARCELO (obstructive sleep apnea): Code(s): G47.33 - Obstructive sleep apnea (adult) (pediatric) Status: Acute Assessment and Plan: A CPAP machine has been ordered for the patient for tonight. Subjective Date/time seen: 06/14/22 12:52 Interval history: Patient sitting up in bed and in pleasant mood when I enter the room. Patient states that her shortness of breath has improved. Patient denies chest pain, nausea, vomiting, urinary symptoms in lower extremity swelling. Review of Systems Review of Systems: All systems reviewed & are unremarkable except as noted in HPI and below Exam Narrative: GENERAL: Comfortable, no acute distress HENMT: moist mucous membranes EYES: EOM intact b/l NECK: no lymphadenopathy RESPIRATORY: Diffuse wheezing CARDIO: irregular rhythm, rate controlled GI: soft, nontender, bowel sounds present SKIN: no rashes EXTREMITIES: no edema, redness or tenderness Objective Data Vital Signs Vital Signs: Vital Signs - 24 hr 06/13/22 13:15 06/13/22 15:00 06/13/22 15:48 Temperature Pulse Rate 98 100 Respiratory Rate 20 16 Blood Pressure 134/87 134/98 H Pulse Oximetry 99 97 100 Oxygen Delivery Nasal Cannula Oxygen Flow Rate 2 06/13/22 16:10 06/13/22 20:56 06/13/22 20:57 Temperature 97.7 F Pulse Rate 96 108 H Respiratory Rate 26 H 22 H Blood Pressure 136/78 Pulse Oximetry 100 98 Oxygen Delivery Nasal Cannula Oxygen Flow Rate 2 06/13/22 21:12 06/13/22 22:00 06/13/22 22:29 Temperature 97.3 F L Pulse Rate 98 107 H 105 H Respiratory Rate 22 H 18
[2022-06-14] MEDS: RIVAROXABAN 20 MG TABLET PO (17:08)
[2022-06-14 17:09] LABS: Glucose Point of Care 257 mg/dl (65-105)
[2022-06-14 20:24] LABS: Glucose Point of Care 248 mg/dl (65-105)
[2022-06-14 23:47] LABS: Glucose Point of Care 253 mg/dl (65-105)
[2022-06-15] VITALS (17 sets, daily range): BP systolic 111–123; BP diastolic 63–83; PULSE 63–111; RESP 18–24; TEMP 36.4–37; O2SAT 94–99
[2022-06-15] MEDS: IPRATROPIUM BR 0.02% INH SOLN 0.5 MG/2.5 ML VIAL INHALATION ×4 (03:00→21:05)
[2022-06-15] MEDS: ALBUTEROL SULFATE NEB 2.5 MG/3 ML INH INHALATION ×4 (03:00→21:05)
[2022-06-15 05:14] LABS: Basophils Percent Auto 0.1 % (0.2-1.2); Hematocrit 42.2 % (37.0-47.0); Hemoglobin 13.2 g/dL (12.0-15.0); Immature Granulocyte Percent A 0.7 % (0-0.5); Lymphocytes Absolute Auto 0.93 K/mm3 (0.9-3.2); Lymphocytes Percent Auto 6.7 % (18.3-44.2); Mean Corpuscular HGB Conc 31.3 g/dl (32-36); Mean Corpuscular Hemoglobin 28.6 pg (26-34); Mean Corpuscular Volume 91.5 fl (80-100); Mean Platelet Volume 10.7 fl (7.4-10.4); Monocytes Absolute Auto 0.8 K/mm3 (0.1-0.6); Monocytes Percent Auto 5.4 % (2.6-8.5); Neutrophils Absolute Auto 12.2 K/mm3 (1.3-6.7); Neutrophils Percent Auto 87.1 % (45.5-73.1); Platelet Count Result 305 k/mm3 (150-375); Red Blood Count 4.61 M/mm3 (4.2-5.4); Red Cell Distribution Width 15.1 % (11.5-14.5); White Blood Count 13.9 K/mm3 (4.5-10.0)
[2022-06-15 05:28] LABS: Alanine Aminotransferase 33 U/L (6-35); Albumin Level 4.6 g/dL (3.5-5.1); Alkaline Phosphatase 86 U/L (38-126); Anion Gap 11 mmol/L (8-16); Aspartate Amino Transferase 23 U/L (14-36); Bilirubin,Total 0.7 mg/dL (0.2-1.3); Blood Urea Nitrogen 23 mg/dL (7-17); Calcium 8.8 mg/dL (8.4-10.2); Carbon Dioxide 23 mmol/L (22-30); Chloride 102 mmol/L (98-107); Estimated CRCL calculation 83 ml/min; Estimated Glomerular Filt Rate > 60; Glucose 219 mg/dL (65-110); Potassium 4.2 mmol/L (3.4-5.0); Sodium 136 mmol/L (137-145)
[2022-06-15] MEDS: DEXTROMETHORPHAN POLISTIREX 60 MG/10 ML SYRINGE PO ×2 (05:55→22:27)
[2022-06-15 07:59] LABS: Glucose Point of Care 219 mg/dl (65-105)
[2022-06-15] MEDS: AZITHROMYCIN 250 MG TABLET 500 MG PO (09:05)
[2022-06-15] MEDS: ATORVASTATIN 20 MG TABLET PO (09:06)
[2022-06-15] MEDS: EMPAGLIFLOZIN 10 MG TABLET PO (09:06)
[2022-06-15] MEDS: lisinopriL 20 MG TABLET PO (09:06)
[2022-06-15] MEDS: METOPROLOL SUCCINATE EXT REL 25 MG TABCR PO (09:06)
[2022-06-15] MEDS: ISOSORBIDE MONONITRATE 30 MG TAB.ER.24H PO (09:06)
[2022-06-15] MEDS: amLODIPine BESYLATE 5 MG TABLET 10 MG PO (09:06)
[2022-06-15] MEDS: FLUTICASONE PROPIONATE 0.05% NA SPR 16 GM BTL (*BKC) 2 SPRAY NASAL (09:07)
[2022-06-15] MEDS: methylPREDNISolone SOD SUCC 125 MG VIAL 60 MG IV PUSH ×2 (09:08→20:15)
[2022-06-15] MEDS: ROFLUMILAST 500 MCG TABLET PO (09:09)
[2022-06-15] MEDS: INSULIN ASPART (*BKC) 100 UNITS/ML SUB-Q ×3 (09:10→17:18)
[2022-06-15 11:59] LABS: Glucose Point of Care 249 mg/dl (65-105)
--- NOTE | 2022-06-15 13:38 | P.PNIM_ITS ---
Progress Note: A&P Assessment and Plan (1) Acute exacerbation of chronic obstructive airways disease: Code(s): J44.1 - Chronic obstructive pulmonary disease with (acute) exacerbation Status: Acute Assessment and Plan: Patient presented to the ED with increased shortness of breath. Chest x-ray revealed chronic lingular atelectasis/ scarring. * Solu-Medrol q6hr deescalated to q12hr due to improving shortness of breath * Nebulizer treatments as needed * continue with Daliresp * RSV influenza and COVID negative. * sputum culture is pending * Patient weened down to home O2. * 06/14/22 patient continued to have shortness of breath with ambulation and diffuse wheezing. Continue on 1 more day of IV steroids in helping the patient can be discharged tomorrow. Patient very eager to go home. (2) Type 2 diabetes mellitus: Qualifiers: Diabetes mellitus usp insulin use: with long term care administrator use Code(s): E11.9 - Type 2 diabetes mellitus without complications Status: Chronic Assessment and Plan: * Accu-Cheks AC and HS with sliding scale insulin * continue Jardiance * hold metformin * I suspect that patient's blood sugars will be elevated as she is on steroids. * Hypoglycemic protocol * A1c 6.9 (3) Hypercholesterolemia: Code(s): E78.00 - Pure hypercholesterolemia, unspecified Status: Chronic Assessment and Plan: Continue with atorvastatin (4) Atrial fibrillation, chronic: Code(s): I48.20 - Chronic atrial fibrillation, unspecified Status: Chronic Assessment and Plan: * continue with Xarelto * continue with metoprolol (5) Chronic respiratory failure with hypoxia and hypercapnia: Code(s): J96.11 - Chronic respiratory failure with hypoxia; J96.12 - Chronic respiratory failure with hypercapnia Status: Acute Assessment and Plan: patient back on home oxygen level at 2 L. (6) Chronic diastolic (congestive) heart failure: Code(s): I50.32 - Chronic diastolic (congestive) heart failure Status: Chronic Assessment and Plan: * Continue with lisinopril * Continue with metoprolol * Patient's last echo was on 02/19/2022 that showed EF 50-55%, biatrial dilation, mildly sclerotic aortic valve. * Repeat echo With EF greater than 70%, pulmonary hypertension of 50 mmHg, tricuspid regurg (7) Essential (primary) hypertension: Code(s): I10 - Essential (primary) hypertension Status: Chronic Assessment and Plan: * Continue with Norvasc, metoprolol, lisinopril (8) MARCELO (obstructive sleep apnea): Code(s): G47.33 - Obstructive sleep apnea (adult) (pediatric) Status: Acute Assessment and Plan: A CPAP machine has been ordered for the patient for tonight. Subjective Date/time seen: 06/15/22 13:38 Interval history: Patient sitting up in bed and doing well. Patient still having some shortness of breath with ambulation and consistently having wheezing. She is back on her home O2 settings. Patient has no complaints she is ready to be discharged but I do not feel comfortable given that she is still having shortness of breath and wheezing. Review of Systems Review of Systems: All systems reviewed & are unremarkable except as noted in HPI and below Exam Narrative: GENERAL: Comfortable, no acute distress HENMT: mo
--- NOTE | 2022-06-15 13:38 | PM.IMPN ---
Progress Note: A&P Assessment and Plan (1) Acute exacerbation of chronic obstructive airways disease: Code(s): J44.1 - Chronic obstructive pulmonary disease with (acute) exacerbation Status: Acute Assessment and Plan: Patient presented to the ED with increased shortness of breath. Chest x-ray revealed chronic lingular atelectasis/ scarring. Solu-Medrol q6hr deescalated to q12hr due to improving shortness of breath Nebulizer treatments as needed continue with Daliresp RSV influenza and COVID negative. sputum culture is pending Patient weened down to home O2. 06/14/22 patient continued to have shortness of breath with ambulation and diffuse wheezing. Continue on 1 more day of IV steroids in helping the patient can be discharged tomorrow. Patient very eager to go home. (2) Type 2 diabetes mellitus: Qualifiers: Diabetes mellitus bed bug exterminator insulin use: with chcf use Code(s): E11.9 - Type 2 diabetes mellitus without complications Status: Chronic Assessment and Plan: Accu-Cheks AC and HS with sliding scale insulin continue Jardiance hold metformin I suspect that patient's blood sugars will be elevated as she is on steroids. Hypoglycemic protocol A1c 6.9 (3) Hypercholesterolemia: Code(s): E78.00 - Pure hypercholesterolemia, unspecified Status: Chronic Assessment and Plan: Continue with atorvastatin (4) Atrial fibrillation, chronic: Code(s): I48.20 - Chronic atrial fibrillation, unspecified Status: Chronic Assessment and Plan: continue with Xarelto continue with metoprolol (5) Chronic respiratory failure with hypoxia and hypercapnia: Code(s): J96.11 - Chronic respiratory failure with hypoxia; J96.12 - Chronic respiratory failure with hypercapnia Status: Acute Assessment and Plan: patient back on home oxygen level at 2 L. (6) Chronic diastolic (congestive) heart failure: Code(s): I50.32 - Chronic diastolic (congestive) heart failure Status: Chronic Assessment and Plan: Continue with lisinopril Continue with metoprolol Patient's last echo was on 02/19/2022 that showed EF 50-55%, biatrial dilation, mildly sclerotic aortic valve. Repeat echo With EF greater than 70%, pulmonary hypertension of 50 mmHg, tricuspid regurg (7) Essential (primary) hypertension: Code(s): I10 - Essential (primary) hypertension Status: Chronic Assessment and Plan: Continue with Norvasc, metoprolol, lisinopril (8) MARCELO (obstructive sleep apnea): Code(s): G47.33 - Obstructive sleep apnea (adult) (pediatric) Status: Acute Assessment and Plan: A CPAP machine has been ordered for the patient for tonight. Subjective Date/time seen: 06/15/22 13:38 Interval history: Patient sitting up in bed and doing well. Patient still having some shortness of breath with ambulation and consistently having wheezing. She is back on her home O2 settings. Patient has no complaints she is ready to be discharged but I do not feel comfortable given that she is still having shortness of breath and wheezing. Review of Systems Review of Systems: All systems reviewed & are unremarkable except as noted in HPI and below Exam Narrative: GENERAL: Comfortable, no acute distress HENMT: moist mucous membranes EYES: EOM intact b/l NECK: no lymphadenopathy RESPIRATORY: Expiratory wheezing throughout CARDIO: RRR GI: soft, nontender, bowel sounds present SKIN: no rashes EXTREMITIES: no edema, redness or tenderness Objective Data Vital Signs Vital Signs: Vital Signs - 24 hr 06/14/22 13:50 06/14/22 15:07 06/14/22 19:59 Temperature 98.1 F 97.5 F L Pulse Rate 99 99 102 H Respiratory Rate 20 20 20 Blood Pressure 118/67 128/80 Pulse Oximetry 96 98 Oxygen Delivery Oxygen Flow Rate Fraction of Inspired Oxy
[2022-06-15 17:11] LABS: Glucose Point of Care 257 mg/dl (65-105)
[2022-06-15] MEDS: RIVAROXABAN 20 MG TABLET PO (17:18)
[2022-06-15 20:08] LABS: Glucose Point of Care 306 mg/dl (65-105)
[2022-06-16] VITALS (7 sets, daily range): BP systolic 148; BP diastolic 76; PULSE 87–99; RESP 18–20; TEMP 36.6; O2SAT 99
[2022-06-16] MEDS: ALBUTEROL SULFATE NEB 2.5 MG/3 ML INH INHALATION ×3 (02:41→15:36)
[2022-06-16] MEDS: IPRATROPIUM BR 0.02% INH SOLN 0.5 MG/2.5 ML VIAL INHALATION ×3 (02:41→15:37)
[2022-06-16 05:02] LABS: Basophils Percent Auto 0.1 % (0.2-1.2); Hematocrit 39.4 % (37.0-47.0); Hemoglobin 12.8 g/dL (12.0-15.0); Immature Granulocyte Absolute 0.07 K/mm3 (0.00-0.031); Immature Granulocyte Percent A 0.6 % (0-0.5); Lymphocytes Absolute Auto 0.62 K/mm3 (0.9-3.2); Lymphocytes Percent Auto 5.6 % (18.3-44.2); Mean Corpuscular HGB Conc 32.5 g/dl (32-36); Mean Corpuscular Volume 89.3 fl (80-100); Mean Platelet Volume 10.8 fl (7.4-10.4); Monocytes Absolute Auto 0.6 K/mm3 (0.1-0.6); Monocytes Percent Auto 5.3 % (2.6-8.5); Neutrophils Absolute Auto 9.7 K/mm3 (1.3-6.7); Neutrophils Percent Auto 88.4 % (45.5-73.1); Platelet Count Result 298 k/mm3 (150-375); Red Blood Count 4.41 M/mm3 (4.2-5.4); Red Cell Distribution Width 15.1 % (11.5-14.5)
[2022-06-16 05:24] LABS: Alanine Aminotransferase 30 U/L (6-35); Albumin Level 4.5 g/dL (3.5-5.1); Alkaline Phosphatase 87 U/L (38-126); Anion Gap 9 mmol/L (8-16); Aspartate Amino Transferase 21 U/L (14-36); Bilirubin,Total 0.6 mg/dL (0.2-1.3); Blood Urea Nitrogen 24 mg/dL (7-17); Carbon Dioxide 27 mmol/L (22-30); Chloride 99 mmol/L (98-107); Estimated CRCL calculation 63 ml/min; Estimated Glomerular Filt Rate > 60; Glucose 254 mg/dL (65-110); Potassium 4.2 mmol/L (3.4-5.0); Sodium 135 mmol/L (137-145)
[2022-06-16 07:52] LABS: Glucose Point of Care 188 mg/dl (65-105)
[2022-06-16] MEDS: FLUTICASONE PROPIONATE 0.05% NA SPR 16 GM BTL (*BKC) 2 SPRAY NASAL (08:39)
[2022-06-16] MEDS: ROFLUMILAST 500 MCG TABLET PO (08:40)
[2022-06-16] MEDS: lisinopriL 20 MG TABLET PO (08:40)
[2022-06-16] MEDS: METOPROLOL SUCCINATE EXT REL 25 MG TABCR PO (08:40)
[2022-06-16] MEDS: EMPAGLIFLOZIN 10 MG TABLET PO (08:40)
[2022-06-16] MEDS: ATORVASTATIN 20 MG TABLET PO (08:40)
[2022-06-16] MEDS: amLODIPine BESYLATE 5 MG TABLET 10 MG PO (08:40)
[2022-06-16] MEDS: AZITHROMYCIN 250 MG TABLET PO (08:41)
[2022-06-16] MEDS: ISOSORBIDE MONONITRATE 30 MG TAB.ER.24H PO (08:41)
--- NOTE | 2022-06-16 10:04 | P.DS_ITS ---
DS: Admitting Diagnosis Discharge Date 06/16/22 Admitting Diagnosis COPD exacerbation DS: Discharge Diagnosis Discharge Diagnosis (1) Acute exacerbation of chronic obstructive airways disease: Code(s): J44.1 - Chronic obstructive pulmonary disease with (acute) exacerbation Status: Acute Assessment and Plan: Patient presented to the ED with increased shortness of breath. Chest x-ray revealed chronic lingular atelectasis/ scarring. * Solu-Medrol q6hr deescalated to q12hr due to improving shortness of breath * Nebulizer treatments as needed * continue with Daliresp * RSV influenza and COVID negative. * sputum culture is pending * Patient weened down to home O2. * 06/14/22 patient continued to have shortness of breath with ambulation and diffuse wheezing. Continue on 1 more day of IV steroids in helping the patient can be discharged tomorrow. Patient very eager to go home. (2) Type 2 diabetes mellitus: Qualifiers: Diabetes mellitus usp insulin use: with usp use Code(s): E11.9 - Type 2 diabetes mellitus without complications Status: Chronic Assessment and Plan: * Accu-Cheks AC and HS with sliding scale insulin * continue Jardiance * hold metformin * I suspect that patient's blood sugars will be elevated as she is on steroids. * Hypoglycemic protocol * A1c 6.9 (3) Hypercholesterolemia: Code(s): E78.00 - Pure hypercholesterolemia, unspecified Status: Chronic Assessment and Plan: Continue with atorvastatin (4) Atrial fibrillation, chronic: Code(s): I48.20 - Chronic atrial fibrillation, unspecified Status: Chronic Assessment and Plan: * continue with Xarelto * continue with metoprolol (5) Chronic respiratory failure with hypoxia and hypercapnia: Code(s): J96.11 - Chronic respiratory failure with hypoxia; J96.12 - Chronic respiratory failure with hypercapnia Status: Acute Assessment and Plan: patient back on home oxygen level at 2 L. (6) Chronic diastolic (congestive) heart failure: Code(s): I50.32 - Chronic diastolic (congestive) heart failure Status: Chronic Assessment and Plan: * Continue with lisinopril * Continue with metoprolol * Patient's last echo was on 02/19/2022 that showed EF 50-55%, biatrial dilation, mildly sclerotic aortic valve. * Repeat echo With EF greater than 70%, pulmonary hypertension of 50 mmHg, tricuspid regurg (7) Essential (primary) hypertension: Code(s): I10 - Essential (primary) hypertension Status: Chronic Assessment and Plan: * Continue with Norvasc, metoprolol, lisinopril (8) MARCELO (obstructive sleep apnea): Code(s): G47.33 - Obstructive sleep apnea (adult) (pediatric) Status: Acute Assessment and Plan: A CPAP machine has been ordered for the patient for tonight. DS: Summary Hospital Course Reason for hospitalization: COPD exacerbation Hospital Course: This is a very pleasant 71-year-old female presents to the ED on 05/16/2022 with chief complaint of shortness of breath. Patient has a history of hypertension, diabetes, COPD, AFib, MARCELO and hyperlipidemia. Patient has associated cough with shortness of breath. Patient tested negative for COVID and flu. Chest x-ray revealed chronically ill your atelectasis and scarring. On physical exam patient had diffuse wheezing. P
--- NOTE | 2022-06-16 10:04 | PM.DS ---
DS: Admitting Diagnosis Discharge Date 06/16/22 Admitting Diagnosis COPD exacerbation DS: Discharge Diagnosis Discharge Diagnosis (1) Acute exacerbation of chronic obstructive airways disease: Code(s): J44.1 - Chronic obstructive pulmonary disease with (acute) exacerbation Status: Acute Assessment and Plan: Patient presented to the ED with increased shortness of breath. Chest x-ray revealed chronic lingular atelectasis/ scarring. Solu-Medrol q6hr deescalated to q12hr due to improving shortness of breath Nebulizer treatments as needed continue with Daliresp RSV influenza and COVID negative. sputum culture is pending Patient weened down to home O2. 06/14/22 patient continued to have shortness of breath with ambulation and diffuse wheezing. Continue on 1 more day of IV steroids in helping the patient can be discharged tomorrow. Patient very eager to go home. (2) Type 2 diabetes mellitus: Qualifiers: Diabetes mellitus correction insulin use: with correction use Code(s): E11.9 - Type 2 diabetes mellitus without complications Status: Chronic Assessment and Plan: Accu-Cheks AC and HS with sliding scale insulin continue Jardiance hold metformin I suspect that patient's blood sugars will be elevated as she is on steroids. Hypoglycemic protocol A1c 6.9 (3) Hypercholesterolemia: Code(s): E78.00 - Pure hypercholesterolemia, unspecified Status: Chronic Assessment and Plan: Continue with atorvastatin (4) Atrial fibrillation, chronic: Code(s): I48.20 - Chronic atrial fibrillation, unspecified Status: Chronic Assessment and Plan: continue with Xarelto continue with metoprolol (5) Chronic respiratory failure with hypoxia and hypercapnia: Code(s): J96.11 - Chronic respiratory failure with hypoxia; J96.12 - Chronic respiratory failure with hypercapnia Status: Acute Assessment and Plan: patient back on home oxygen level at 2 L. (6) Chronic diastolic (congestive) heart failure: Code(s): I50.32 - Chronic diastolic (congestive) heart failure Status: Chronic Assessment and Plan: Continue with lisinopril Continue with metoprolol Patient's last echo was on 02/19/2022 that showed EF 50-55%, biatrial dilation, mildly sclerotic aortic valve. Repeat echo With EF greater than 70%, pulmonary hypertension of 50 mmHg, tricuspid regurg (7) Essential (primary) hypertension: Code(s): I10 - Essential (primary) hypertension Status: Chronic Assessment and Plan: Continue with Norvasc, metoprolol, lisinopril (8) MARCELO (obstructive sleep apnea): Code(s): G47.33 - Obstructive sleep apnea (adult) (pediatric) Status: Acute Assessment and Plan: A CPAP machine has been ordered for the patient for tonight. DS: Summary Hospital Course Reason for hospitalization: COPD exacerbation Hospital Course: This is a very pleasant 71-year-old female presents to the ED on 05/16/2022 with chief complaint of shortness of breath. Patient has a history of hypertension, diabetes, COPD, AFib, MARCELO and hyperlipidemia. Patient has associated cough with shortness of breath. Patient tested negative for COVID and flu. Chest x-ray revealed chronically ill your atelectasis and scarring. On physical exam patient had diffuse wheezing. Patient started on Solu-Medrol in the ED. once patient on hospital floor she was started on Solu-Medrol Q6h patient was requiring increased oxygen demand and on 3 L once admitted. Patient started on a Z-Evan while she was in the hospital and Solu-Medrol weaned down did to q.12 hours. During patient's hospital stay she had improvement every day and by day 3 wheezing she had significant improvement. on day of discharge patient stated that she was having significant improvement of her shortness of breath as well as we
[2022-06-16] MEDS: DEXTROMETHORPHAN POLISTIREX 60 MG/10 ML SYRINGE PO (11:02)
[2022-06-16 11:41] LABS: Glucose Point of Care 247 mg/dl (65-105)
[2022-06-16] MEDS: INSULIN ASPART (*BKC) 100 UNITS/ML SUB-Q (12:31)
== END 2022-06-16 13:06 | disposition home or self-care (01) | DRG 191 ==
LOC: ANHED 10:18 → ANH2MED 15:05
PROVIDERS: Emergency Medicine; Nurse Practitioner; Admitting Provider Internal Medicine; Emergency Provider Nurse Practitioner Family; PCP Student in an Organized Health Care Education/Training Program; Visit Provider Internal Medicine Critical Care Medicine
DX: J44.1 Chronic obstructive pulmonary disease with (acute) exacerbation (principal); I13.0 Hypertensive heart and chronic kidney disease with heart failure and stage 1 through stage 4 chronic kidney disease, or unspecified chronic kidney disease; I48.20 Chronic atrial fibrillation, unspecified; J96.11 Chronic respiratory failure with hypoxia; J96.12 Chronic respiratory failure with hypercapnia; I50.32 Chronic diastolic (congestive) heart failure; N18.4 Chronic kidney disease, stage 4 (severe); Z20.822 Contact with and (suspected) exposure to COVID-19; E11.22 Type 2 diabetes mellitus with diabetic chronic kidney disease; E11.44 Type 2 diabetes mellitus with diabetic amyotrophy; G47.33 Obstructive sleep apnea (adult) (pediatric); M19.90 Unspecified osteoarthritis, unspecified site; F41.9 Anxiety disorder, unspecified; E78.5 Hyperlipidemia, unspecified; E78.00 Pure hypercholesterolemia, unspecified; Z99.81 Dependence on supplemental oxygen; Z79.4 Long term (current) use of insulin; Z79.84 Long term (current) use of oral hypoglycemic drugs; Z87.891 Personal history of nicotine dependence
CPT/HCPCS: 36415; 71046; 80053; 82948; 83036; 83605; 83735; 84439; 84443; 84480; 85025; 87637; 93005; 93306; 94640; 94660; 96374; 96375; 96376; 99285; A9270; C8929; G0378; J1815; J2930; Q9957

== ENCOUNTER 2022-11-06 15:37 | Emergency (ER) | payer OTHER, MEDICAID, SELFPAY ==
[2022-11-06] VITALS (15 sets, daily range): BP systolic 96–174; BP diastolic 61–134; PULSE 69–84; RESP 16–26; TEMP 36.2; O2SAT 92–98
--- NOTE | ~2022-11-06 | CT_ITS ---
EXAMINATION: CT brain wo con, CT facial bones wo con DATE: 11/06/2022 16:18 INDICATION: Head and facial injury TECHNIQUE: 1. Computed tomography (CT) of the head was performed without intravenous contrast. Sagittal and genna nal reconstructions were obtained. The mA was adjusted according to patient size. Iterative reconstru ction technique was employed. The dose-length product was 605.33 mGy-cm. 2. CT of the facial bones and maxillofacial region was performed without intravenous contrast. Sagitt al and coronal reconstructions were obtained. Automated exposure control and iterative reconstruction technique were employed. The dose-length product was 346.75 mGy-cm. COMPARISON: None. FINDINGS: Head CT: No calvarial fracture. No acute intracranial hemorrhage, acute infarction or abnormal extra axial flu id collection. There is mild scattered white matter hypoattenuation consistent with chronic small ves juan ischemic disease. 1.9 x 0.9 x 1.8 cm peripherally calcified extra-axial mass overlying the anter ior left frontal lobe most consistent with a meningioma. Ventricles are normal and symmetric. Small b ilateral mastoid effusions. Maxillofacial CT: Mild right periorbital soft tissue swelling. Bilateral globes appear intact with bilateral intraocula r lens replacement. No post septal inflammatory stranding at either orbit. No maxillofacial fractures . Specifically the abbott of the orbits and paranasal sinuses, the nasal bones, zygomatic arches and m andible are intact. Mild osteoarthritis in normal alignment at the bilateral temporomandibular joints . Nasal septum is midline. The callosal thickening and small amounts of scattered dependently layerin g mucus in the paranasal sinuses. Small osteoma at the right frontoethmoidal recess. IMPRESSION: 1. No calvarial or maxillofacial fractures or acute intracranial process. 2. 1.9 cm peripherally calcified extra-axial mass overlying the left frontal lobe most consistent wit h a meningioma. Reviewed, dictated and finalized at location A. IMPRESSION: 1. No calvarial or maxillofacial fractures or acute intracranial process. 2. 1.9 cm peripherally calcified extra-axial mass overlying the left frontal lo be most consistent with a meningioma.
--- NOTE | ~2022-11-06 | CT_ITS ---
EXAMINATION: CT hip RT wo con DATE: 11/06/2022 17:34 INDICATION: Right hip pain. TECHNIQUE: Computed tomography (CT) of the right hip was performed without intravenous contrast. The dose-length product was 603.25 mGy-cm. Automated exposure control and iterative reconstruction techni que were employed. COMPARISON: Right hip series dated 11/06/2022 FINDINGS: Mild osteoarthritis of the right hip. No acute fracture is identified. No significant soft tissue abnormality. There is mild osteitis pubis. There are nonspecific coarse calcifications in the right pelvis, possibly ovarian. IMPRESSION: 1. No acute fracture. 2: Mild osteoarthritis of the right hip. Reviewed, dictated and finalized at location A.
--- NOTE | ~2022-11-06 | XR_ITS ---
XR hip RT 2V w AP pelvis DATE: 11/06/2022 16:29 INDICATION: Right hip pain following a fall TECHNIQUE: AP pelvis and 2 views right hip COMPARISON: None FINDINGS: There is a possible nondisplaced right femoral subcapital fracture. Recommend correlation w ith CT. Pelvic rings are intact. There are severe lower lumbar spondylosis. IMPRESSION: Possible nondisplaced right femoral subcapital fracture. Consider correlation with CT. Reviewed, dictated and finalized at location L. IMPRESSION: Possible nondisplaced right femoral subcapital fracture. Consider c orrelation with CT.
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
== END 2022-11-06 18:35 | disposition home or self-care (01) ==
LOC: ANHED 18:23
PROVIDERS: Emergency Provider Emergency Medicine; PCP Student in an Organized Health Care Education/Training Program
DX: S00.11XA Contusion of right eyelid and periocular area, initial encounter (principal); S70.01XA Contusion of right hip, initial encounter; E11.22 Type 2 diabetes mellitus with diabetic chronic kidney disease; I13.0 Hypertensive heart and chronic kidney disease with heart failure and stage 1 through stage 4 chronic kidney disease, or unspecified chronic kidney disease; N18.4 Chronic kidney disease, stage 4 (severe); I50.9 Heart failure, unspecified; I48.20 Chronic atrial fibrillation, unspecified; J44.9 Chronic obstructive pulmonary disease, unspecified; J96.11 Chronic respiratory failure with hypoxia; J96.12 Chronic respiratory failure with hypercapnia; E11.36 Type 2 diabetes mellitus with diabetic cataract; H26.9 Unspecified cataract; E78.00 Pure hypercholesterolemia, unspecified; G47.30 Sleep apnea, unspecified; Z87.01 Personal history of pneumonia (recurrent); Z87.440 Personal history of urinary (tract) infections; Z87.891 Personal history of nicotine dependence; Z79.4 Long term (current) use of insulin; Z79.01 Long term (current) use of anticoagulants; Z79.84 Long term (current) use of oral hypoglycemic drugs; Z98.49 Cataract extraction status, unspecified eye; Z90.710 Acquired absence of both cervix and uterus; G93.89 Other specified disorders of brain; M16.11 Unilateral primary osteoarthritis, right hip; W01.190A Fall on same level from slipping, tripping and stumbling with subsequent striking against furniture, initial encounter
CPT/HCPCS: 70450; 70486; 73502; 73700; 99284

== ENCOUNTER 2023-01-01 15:47 | Emergency (ER) | payer OTHER, MEDICAID, SELFPAY ==
[2023-01-01 16:01] VITALS: BP 89/73; PULSE 106; RESP 16; TEMP 36.9; O2SAT 98
[2023-01-01 16:04] VITALS: RESP 28
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
== END 2023-01-01 16:10 | disposition short-term general hospital (02) ==
PROVIDERS: Emergency Provider Nurse Practitioner; PCP Student in an Organized Health Care Education/Training Program
DX: I95.9 Hypotension, unspecified (principal); R06.02 Shortness of breath; R00.0 Tachycardia, unspecified; I13.0 Hypertensive heart and chronic kidney disease with heart failure and stage 1 through stage 4 chronic kidney disease, or unspecified chronic kidney disease; E11.22 Type 2 diabetes mellitus with diabetic chronic kidney disease; N18.4 Chronic kidney disease, stage 4 (severe); I50.9 Heart failure, unspecified; Z79.4 Long term (current) use of insulin; Z79.84 Long term (current) use of oral hypoglycemic drugs; E11.44 Type 2 diabetes mellitus with diabetic amyotrophy; I48.91 Unspecified atrial fibrillation; J44.9 Chronic obstructive pulmonary disease, unspecified; E78.00 Pure hypercholesterolemia, unspecified; Z79.01 Long term (current) use of anticoagulants
CPT/HCPCS: 99215; G0463

== ENCOUNTER 2023-01-01 16:49 | Observation (INO) | payer OTHER, MEDICAID, SELFPAY ==
--- NOTE | ~2023-01-01 | XR_ITS ---
XR chest 1V portable 01/01/2023 17:33 Indication: Cough and dyspnea Procedure: AP portable chest Comparison: Comparison to multiple prior studies sequentially, with oldest reviewed study dated 12/2019. Findings: Heart size normal. Chronic right upper lobe scarring. There is calcified granuloma in the r ight perihilar location. No edema, pleural effusion or pneumothorax. No acute osseous abnormality. Impression: 1: No acute cardiopulmonary disease. Reviewed, dictated and finalized at location A. Impression: 1: No acute cardiopulmonary disease.
[2023-01-01 17:02] VITALS: BP 102/63; PULSE 88; RESP 19
--- NOTE | 2023-01-01 17:09 | ECG_ITS ---
Measurements Intervals [place] Rate: 115 P: 72 [place]: 108 QRS: 56 QRSD: 83 T: 70 QT: 329 QTc: 456 Interpretive Statements SINUS TACHYCARDIA WITH SHORT CA INTERVAL FREQUENT VENTRICULAR PREMATURE COMPLEXES POSSIBLE LEFT ATRIAL ENLARGEMENT ABNORMAL ECG COMPARED TO ECG 06/13/2022 09:38:39 SINUS TACHYCARDIA NOW PRESENT Electronically Signed On 01-02-2023 6:23:22 CDT by Gonsalo Salmon D.O.
[2023-01-01 17:19] VITALS: BP 97/74; PULSE 98; RESP 20; O2SAT 99
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
[2023-01-01] MEDS: ALBUTEROL SULFATE NEB 2.5 MG/3 ML INH 10 MG INHALATION (17:50)
[2023-01-01] MEDS: IPRATROPIUM BR 0.02% INH SOLN 0.5 MG/2.5 ML VIAL 1 MG INHALATION (17:51)
[2023-01-01 17:57] VITALS: PULSE 84; RESP 21
[2023-01-01 18:40] LABS: Influenza A QL RT-PCR Negative (Negative); Influenza B QL RT-PCR Negative (Negative); RSV RNA, RT-PCR Negative (Negative); SARS-CoV-2 RNA PCR Negative (Negative)
--- NOTE | 2023-01-01 18:44 | ECG_ITS ---
Measurements Intervals [place] Rate: 107 P: [place]: 0 QRS: 5 QRSD: 90 T: 12 QT: 336 QTc: 449 Interpretive Statements ATRIAL FIBRILLATION WITH RAPID VENTRICULAR RESPONSE FREQUENT VENTRICULAR PREMATURE COMPLEXES LOW QRS VOLTAGE IN PRECORDIAL LEADS NONSPECIFIC T-WAVE ABNORMALITY- DIFFUSE LEADS BASELINE ARTIFACT- I, II, III, AVR, AVL, AVF, V1-V2 ABNORMAL ECG COMPARED TO ECG 06/13/2022 09:38:39 VENTRICLAR PREMATURE COMPLEXES NOW PRESENT T-WAVE ABNORMALITY NOW PRESENT Electronically Signed On 01-03-2023 10:18:04 CDT by Gonsalo Salmon D.O.
[2023-01-01 18:48] VITALS: PULSE 112; RESP 23
[2023-01-01 19:23] LABS: Basophils Absolute Auto 0.1 K/mm3 (0.0-0.1); Basophils Percent Auto 0.7 % (0.2-1.2); Eosinophils Absolute Auto 0.4 K/mm3 (0-0.3); Eosinophils Percent Auto 4.3 % (0-4.4); Hematocrit 40.9 % (37.0-47.0); Hemoglobin 12.4 g/dL (12.0-15.0); Immature Granulocyte Absolute 0.04 K/mm3 (0.00-0.031); Immature Granulocyte Percent A 0.4 % (0-0.5); Lymphocytes Absolute Auto 2.77 K/mm3 (0.9-3.2); Lymphocytes Percent Auto 27.8 % (18.3-44.2); Mean Corpuscular HGB Conc 30.3 g/dl (32-36); Mean Corpuscular Hemoglobin 28.5 pg (26-34); Mean Platelet Volume 10.4 fl (7.4-10.4); Monocytes Absolute Auto 1.3 K/mm3 (0.1-0.6); Monocytes Percent Auto 12.6 % (2.6-8.5); Neutrophils Absolute Auto 5.4 K/mm3 (1.3-6.7); Neutrophils Percent Auto 54.2 % (45.5-73.1); Platelet Count Result 282 k/mm3 (150-375); Red Blood Count 4.35 M/mm3 (4.2-5.4); Red Cell Distribution Width 14.8 % (11.5-14.5)
[2023-01-01 19:35] LABS: INR 3.8; Magnesium 1.7 mg/dL (1.6-2.3)
[2023-01-01 19:36] LABS: Alanine Aminotransferase 26 U/L (6-35); Albumin Level 4.1 g/dL (3.5-5.1); Alkaline Phosphatase 88 U/L (38-126); Anion Gap 13 mmol/L (8-16); Aspartate Amino Transferase 26 U/L (14-36); Bilirubin,Total 0.5 mg/dL (0.2-1.3); Blood Urea Nitrogen 16 mg/dL (7-17); Calcium 8.9 mg/dL (8.4-10.2); Carbon Dioxide 23 mmol/L (22-30); Chloride 104 mmol/L (98-107); Estimated CRCL calculation 71 ml/min; Estimated Glomerular Filt Rate > 60; Glucose 141 mg/dL (65-110); Partial Thromboplastin Time 65.8 SECONDS (22.3-36.8); Sodium 140 mmol/L (137-145)
[2023-01-01] MEDS: methylPREDNISolone SOD SUCC 125 MG VIAL IV PUSH (19:44)
[2023-01-01 19:45] LABS: NT Pro B Type Natriuretic Pept 429 pg/mL (19.9-100)
[2023-01-01 20:31] LABS: Appearance Urine Clear (Clear); Bilirubin Urine Negative (Negative); Blood Urine Negative (Negative); Color Urine Yellow (Yellow); Glucose Urine UA 3+ mg/dL (Negative); Ketones Urine 1+ mg/dL (Negative); Leukocyte Esterase Ur Negative LEU/UL (Negative); Nitrate Urine Negative (Negative); Protein Urine Negative (Negative); Specific Grav Ur 1.033 (1.001-1.035); Urobilinogen Urine 0.2 mg/dL (<2.0); pH Urine 5.5 (5.0-9.0)
[2023-01-01 20:38] LABS: Add Urine Microscopic? NO
[2023-01-01] MEDS: MAGNESIUM SULF 1 GM/D5W 100 ML 1 GM/100 ML BAG IVPB (20:42)
[2023-01-01 22:15] VITALS: BP 122/77; PULSE 83; PULSE 89; RESP 23; O2SAT 96
[2023-01-01 23:20] VITALS: BP 120/75; PULSE 95; RESP 20; TEMP 36.7; O2SAT 99; BMI 32.9
--- NOTE | 2023-01-01 23:27 | ADMGEN ---
This patient, Nano Gayle, was admitted to [facility] Surg Room 321-02. Patient/family oriented to hospital policies and general routines including ID bracelet, bed and alarms, visiting hours, pain management, procedures, bathroom and other care routines, personal items, smoking policy, room service/diet, and visiting hours. Information on how to activate the Rapid Response Team has been discussed. Patient/Family are encouraged to report perceived risks to care and to ask questions if they do not understand what they are told or what they should do.
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
[2023-01-02] VITALS (12 sets, daily range): BP systolic 101–121; BP diastolic 69–78; PULSE 52–97; RESP 14–22; TEMP 30.6–37.4; O2SAT 95–100
[2023-01-02] MEDS: methylPREDNISolone SOD SUCC 40 MG VIAL 60 MG IV PUSH (05:38)
[2023-01-02] MEDS: FLUTICASONE/UMECLIDIN/VILANTER 100-62.5-25 MCG ELLIPTA 1 PUFF INHALATION (07:03)
[2023-01-02 07:12] LABS: Basophils Percent Auto 0.2 % (0.2-1.2); Hematocrit 40.5 % (37.0-47.0); Hemoglobin 12.9 g/dL (12.0-15.0); Immature Granulocyte Absolute 0.03 K/mm3 (0.00-0.031); Immature Granulocyte Percent A 0.3 % (0-0.5); Lymphocytes Percent Auto 8.6 % (18.3-44.2); Mean Corpuscular HGB Conc 31.9 g/dl (32-36); Mean Corpuscular Hemoglobin 28.6 pg (26-34); Mean Corpuscular Volume 89.8 fl (80-100); Mean Platelet Volume 10.6 fl (7.4-10.4); Monocytes Absolute Auto 0.1 K/mm3 (0.1-0.6); Neutrophils Absolute Auto 8.4 K/mm3 (1.3-6.7); Neutrophils Percent Auto 89.9 % (45.5-73.1); Platelet Count Result 326 k/mm3 (150-375); Red Blood Count 4.51 M/mm3 (4.2-5.4); Red Cell Distribution Width 14.7 % (11.5-14.5); White Blood Count 9.3 K/mm3 (4.5-10.0)
[2023-01-02 07:28] LABS: Anion Gap 13 mmol/L (8-16); Blood Urea Nitrogen 15 mg/dL (7-17); Calcium 9.5 mg/dL (8.4-10.2); Carbon Dioxide 23 mmol/L (22-30); Chloride 101 mmol/L (98-107); Estimated CRCL calculation 96 ml/min; Estimated Glomerular Filt Rate > 60; Glucose 196 mg/dL (65-110); Magnesium 2.3 mg/dL (1.6-2.3); Phosphorus 4.1 mg/dL (2.5-4.5); Potassium 4.8 mmol/L (3.4-5.0); Sodium 137 mmol/L (137-145)
[2023-01-02] MEDS: ROFLUMILAST 500 MCG TABLET PO (08:37)
[2023-01-02] MEDS: amLODIPine BESYLATE 5 MG TABLET 10 MG PO (08:37)
[2023-01-02] MEDS: metFORMIN HCL 500 MG TABLET PO ×2 (08:37→17:38)
[2023-01-02] MEDS: EMPAGLIFLOZIN 10 MG TABLET PO (08:37)
[2023-01-02] MEDS: ISOSORBIDE MONONITRATE 30 MG TAB.ER.24H PO (08:38)
[2023-01-02] MEDS: ATORVASTATIN 20 MG TABLET PO (08:38)
[2023-01-02] MEDS: METOPROLOL SUCCINATE EXT REL 25 MG TABCR PO (08:38)
[2023-01-02] MEDS: lisinopriL 20 MG TABLET PO (08:38)
[2023-01-02] MEDS: FLUTICASONE PROPIONATE 0.05% NA SPR 16 GM BTL (*BKC) 2 SPRAY NASAL (08:39)
[2023-01-02] MEDS: INSULIN ASPART (*BKC) 100 UNITS/ML 18 UNITS SUB-Q (08:41)
--- NOTE | 2023-01-02 10:10 | PM.IMPN ---
Progress Note: A&P Assessment and Plan (1) Acute exacerbation of chronic obstructive airways disease: Code(s): J44.1 - Chronic obstructive pulmonary disease with (acute) exacerbation Status: Acute Assessment and Plan: DC Solu-Medrol. 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 insulin use: with moth exterminator use Code(s): E11.9 - Type 2 diabetes mellitus without complications Status: Chronic Assessment and Plan: Accu-Cheks AC and HS with sliding scale insulin continue Jardiance and metformin (3) Hypercholesterolemia: Code(s): E78.00 - Pure hypercholesterolemia, unspecified Status: Chronic Assessment and Plan: Continue with atorvastatin (4) Atrial fibrillation, chronic: Code(s): I48.20 - Chronic atrial fibrillation, unspecified Status: Chronic Assessment and Plan: continue with Xarelto continue with metoprolol (5) Chronic diastolic (congestive) heart failure: Code(s): I50.32 - Chronic diastolic (congestive) heart failure Status: Chronic Assessment and Plan: Continue with lisinopril Continue with metoprolol (6) Essential (primary) hypertension: Code(s): I10 - Essential (primary) hypertension Status: Chronic Assessment and Plan: Continue with Norvasc, metoprolol, lisinopril Subjective Date/time seen: 01/02/23 10:10 Interval history: does not appear to be short of breath. On room air Review of Systems Review of Systems: All systems reviewed & are unremarkable except as noted in HPI and below Exam Narrative: General physical exam: Patient feels weak and tired, currently on room air Head/eyes: Atraumatic, EOMI, PERRLA ENT: Moist mucous membranes, nasal passages clear Neck: Supple, full range of motion, trachea midline CVS: S1 + S2 + 0, regular rate and rhythm, no murmurs Respiratory: Bilaterally decreased air entry in both lung siddiqui, mild bilateral scattered wheezing, no distress Abdomen: Soft, non-tender, bowel sounds +ve, no organomegaly Extremities: No clubbing, no cyanosis, no edema, no calf tenderness Musculoskeletal: Moves all, adequate range of motion, no muscle spasms Skin: Warm, dry, no jaundice, no cyanosis Neurological: Awake, alert, oriented x 3, cranial nerves II-XII intact, no focal neurological deficits Psychiatric: Normal mood, non suicidal Objective Data Vital Signs Vital Signs: Vital Signs - 24 hr 01/01/23 17:19 01/01/23 17:27 01/01/23 17:57 Temperature Pulse Rate 98 84 Respiratory Rate 20 21 H Blood Pressure 97/74 L Pulse Oximetry 99 Oxygen Delivery Room Air Room Air Oxygen Flow Rate 01/01/23 17:02 01/01/23 18:48 01/01/23 22:15 Temperature Pulse Rate 88 112 H 89 Respiratory Rate 19 23 H 23 H Blood Pressure 102/63 122/77 Pulse Oximetry 96 Oxygen Delivery Oxygen Flow Rate 01/01/23 22:15 01/01/23 23:20 01/02/23 00:00 Temperature 98.1 F 98.1 F Pulse Rate 83 95 95 Respiratory Rate 20 20 Blood Pressure 120/75 120/75 Pulse Oximetry 99 99 Oxygen Delivery Oxygen Flow Rate 01/02/23 01:10 01/02/23 04:00 01/02/23 08:38 Temperature 97.6 F Pulse Rate 52 L 94 94 Respiratory Rate 19 14 Blood Pressure 111/69 Pulse Oximetry 97 100 Oxygen Delivery Autopap Oxygen Flow Rate 01/02/23 08:00 01/02/23 07:05 01/02/23 07:05 Temperature Pulse Rate 67 67 Respiratory Rate 18 18 Blood Pressure Pulse Oximetry 99 Oxygen Delivery Room Air Nasal Cannula Oxygen Flow Rate 2 01/02/23 08:00 Temperature 87.0 F L Pulse Rate 93 Respiratory Rate 16 Blood Pressure 114/76 Pulse Oximetry 95 Oxygen Delivery Oxygen Flow Rate Intake/Output Intake/Output: Intake & Output 12/30/22 12/31/22 01/01/23 01/02/23 23:59 23:59 2
[2023-01-02] MEDS: DEXTROMETHORPHAN POLISTIREX 60 MG/10 ML SYRINGE PO ×2 (11:44→20:37)
[2023-01-02 13:49] LABS: Glucose Point of Care 142 mg/dl (65-105)
[2023-01-02 16:42] LABS: Glucose Point of Care 240 mg/dl (65-105)
[2023-01-02] MEDS: RIVAROXABAN 20 MG TABLET PO (17:38)
[2023-01-02] MEDS: INSULIN ASPART (*BKC) 100 UNITS/ML SUB-Q (17:39)
[2023-01-02 21:40] LABS: Glucose Point of Care 297 mg/dl (65-105)
[2023-01-02 22:54] LABS: Glucose Point of Care 254 mg/dl (65-105)
[2023-01-03] VITALS (9 sets, daily range): BP systolic 105–132; BP diastolic 52–84; PULSE 69–98; RESP 14–24; TEMP 36.3–37.1; O2SAT 93–100
[2023-01-03 06:50] LABS: Basophils Percent Auto 0.2 % (0.2-1.2); Hematocrit 35.3 % (37.0-47.0); Hemoglobin 11.5 g/dL (12.0-15.0); Immature Granulocyte Absolute 0.13 K/mm3 (0.00-0.031); Immature Granulocyte Percent A 0.7 % (0-0.5); Lymphocytes Absolute Auto 1.86 K/mm3 (0.9-3.2); Lymphocytes Percent Auto 9.4 % (18.3-44.2); Mean Corpuscular HGB Conc 32.6 g/dl (32-36); Mean Corpuscular Hemoglobin 29.1 pg (26-34); Mean Corpuscular Volume 89.4 fl (80-100); Mean Platelet Volume 10.6 fl (7.4-10.4); Monocytes Absolute Auto 1.6 K/mm3 (0.1-0.6); Neutrophils Absolute Auto 16.2 K/mm3 (1.3-6.7); Neutrophils Percent Auto 81.7 % (45.5-73.1); Platelet Count Result 313 k/mm3 (150-375); Red Blood Count 3.95 M/mm3 (4.2-5.4); Red Cell Distribution Width 14.6 % (11.5-14.5); White Blood Count 19.8 K/mm3 (4.5-10.0)
[2023-01-03 06:59] LABS: Anion Gap 8 mmol/L (8-16); Blood Urea Nitrogen 16 mg/dL (7-17); Calcium 8.9 mg/dL (8.4-10.2); Carbon Dioxide 28 mmol/L (22-30); Chloride 103 mmol/L (98-107); Estimated CRCL calculation 81 ml/min; Estimated Glomerular Filt Rate > 60; Glucose 155 mg/dL (65-110); Potassium 3.9 mmol/L (3.4-5.0); Sodium 139 mmol/L (137-145)
[2023-01-03 08:17] LABS: Glucose Point of Care 154 mg/dl (65-105)
[2023-01-03] MEDS: FLUTICASONE/UMECLIDIN/VILANTER 100-62.5-25 MCG ELLIPTA 1 PUFF INHALATION (08:19)
[2023-01-03] MEDS: DEXTROMETHORPHAN POLISTIREX 60 MG/10 ML SYRINGE PO ×2 (09:08→21:43)
[2023-01-03] MEDS: FLUTICASONE PROPIONATE 0.05% NA SPR 16 GM BTL (*BKC) 2 SPRAY NASAL (09:08)
[2023-01-03] MEDS: ROFLUMILAST 500 MCG TABLET PO (09:09)
[2023-01-03] MEDS: predniSONE 20 MG TABLET 40 MG PO (09:09)
[2023-01-03] MEDS: lisinopriL 20 MG TABLET PO (09:09)
[2023-01-03] MEDS: EMPAGLIFLOZIN 10 MG TABLET PO (09:09)
[2023-01-03] MEDS: ATORVASTATIN 20 MG TABLET PO (09:09)
[2023-01-03] MEDS: amLODIPine BESYLATE 5 MG TABLET 10 MG PO (09:09)
[2023-01-03] MEDS: ISOSORBIDE MONONITRATE 30 MG TAB.ER.24H PO (09:09)
[2023-01-03] MEDS: metFORMIN HCL 500 MG TABLET PO ×2 (09:10→18:45)
[2023-01-03] MEDS: METOPROLOL SUCCINATE EXT REL 25 MG TABCR PO (09:10)
[2023-01-03] MEDS: ACETAMINOPHEN 325 MG TABLET 650 MG PO (11:31)
[2023-01-03 11:34] LABS: Glucose Point of Care 205 mg/dl (65-105)
[2023-01-03 12:12] LABS: Glucose Point of Care 243 mg/dl (65-105)
[2023-01-03] MEDS: INSULIN ASPART (*BKC) 100 UNITS/ML SUB-Q ×3 (13:56→21:43)
[2023-01-03 14:01] LABS: Glucose Point of Care 319 mg/dl (65-105)
[2023-01-03 17:44] LABS: Glucose Point of Care 276 mg/dl (65-105)
--- NOTE | 2023-01-03 17:56 | PM.IMPN ---
Progress Note: A&P Assessment and Plan (1) Acute exacerbation of chronic obstructive airways disease: Code(s): J44.1 - Chronic obstructive pulmonary disease with (acute) exacerbation Status: Acute Assessment and Plan: DC Solu-Medrol. Started on oral steroid Nebulizer treatments as needed continue with Daliresp Leukocytosis likely steroid related will recheck in a.m. (2) Type 2 diabetes mellitus: Qualifiers: Diabetes mellitus intermediate insulin use: with terminal press operator use Code(s): E11.9 - Type 2 diabetes mellitus without complications Status: Chronic Assessment and Plan: Accu-Cheks AC and HS with sliding scale insulin continue Jardiance and metformin (3) Hypercholesterolemia: Code(s): E78.00 - Pure hypercholesterolemia, unspecified Status: Chronic Assessment and Plan: Continue with atorvastatin (4) Atrial fibrillation, chronic: Code(s): I48.20 - Chronic atrial fibrillation, unspecified Status: Chronic Assessment and Plan: continue with Xarelto continue with metoprolol (5) Chronic diastolic (congestive) heart failure: Code(s): I50.32 - Chronic diastolic (congestive) heart failure Status: Chronic Assessment and Plan: Continue with lisinopril Continue with metoprolol (6) Essential (primary) hypertension: Code(s): I10 - Essential (primary) hypertension Status: Chronic Assessment and Plan: Continue with Norvasc, metoprolol, lisinopril Plan 72-year-old female presented with increased wheezing cough and shortness of breath for the past couple weeks. Been using Trelegy and albuterol daily with minimal relief. Received breathing treatment and IV Solu-Medrol in the ER with improvement. Underlying COPD. Continue steroid. Chest x-ray with no acute cardiopulmonary disease. EKG with AFib with RVR has history of chronic AFib. Acute hypoxic respiratory failure on home oxygen at 2 L has underlying chronic diastolic congestive heart failure echo 03/06 with EF 50 55% biatrial dilatation mildly sclerotic aortic valve underlying MARCELO on CPAP Subjective Date/time seen: 01/03/23 17:56 Interval history: Patient continued to feel little short of breath when ambulates. Down to room air now. Uses CPAP at night Review of Systems Review of Systems: All systems reviewed & are unremarkable except as noted in HPI and below Exam Narrative: General physical exam: Pleasant not in acute distress currently on room air Head/eyes: Atraumatic, EOMI, PERRLA ENT: Moist mucous membranes, nasal passages clear Neck: Supple, full range of motion, trachea midline CVS: S1 + S2 + 0, regular rate and rhythm, no murmurs Respiratory: Bilaterally decreased air entry in both lung siddiqui, no distress Abdomen: Soft, non-tender, bowel sounds +ve, no organomegaly Extremities: No clubbing, no cyanosis, no edema, no calf tenderness Musculoskeletal: Moves all, adequate range of motion, no muscle spasms Skin: Warm, dry, no jaundice, no cyanosis Neurological: Awake, alert, oriented x 3, cranial nerves II-XII intact, no focal neurological deficits Psychiatric: Normal mood, non suicidal Objective Data Vital Signs Vital Signs: Vital Signs - 24 hr 01/02/23 20:00 01/02/23 23:09 01/02/23 23:10 Temperature 99.3 F Pulse Rate 92 96 96 Respiratory Rate 18 22 H Blood Pressure 113/72 Pulse Oximetry 98 98 98 Oxygen Delivery Autopap CPAP Oxygen Flow Rate 2 Fraction of Inspired Oxygen 01/02/23 23:38 01/02/23 20:00 01/03/23 04:00 Temperature 98.9 F 98.7 F Pulse Rate 88 88 71 Respiratory Rate 20 20 20 Blood Pressure 101/71 105/74 Pulse Oximetry 100 100 100 Oxygen Delivery Room Air Oxygen Flow Rate Fraction of Inspired Oxygen 01/03/23 08:20 01/03/23 08:00 01/03/23 09:10 Temperature 98.7 F Pulse Rate 76 72 Respiratory Rate 24 H Blood Pressure 111/52
[2023-01-03] MEDS: RIVAROXABAN 20 MG TABLET PO (18:45)
--- NOTE | 2023-01-03 19:52 | PC.NURSE ---
Pt had no changes in status today. Pt compliant with care. Pt had headache that was treated with tylenol. Pt has been monitored for any changes in status.
[2023-01-03] MEDS: IPRATROPIUM BR 0.02% INH SOLN 0.5 MG/2.5 ML VIAL INHALATION (20:50)
[2023-01-03] MEDS: ALBUTEROL SULFATE NEB 2.5 MG/3 ML INH INHALATION (20:50)
[2023-01-03 21:44] LABS: Glucose Point of Care 265 mg/dl (65-105)
[2023-01-04] VITALS (16 sets, daily range): BP systolic 116–136; BP diastolic 56–82; PULSE 55–108; RESP 14–22; TEMP 35.6–37.4; O2SAT 86–99
[2023-01-04] MEDS: ALBUTEROL SULFATE NEB 2.5 MG/3 ML INH INHALATION ×3 (01:20→13:31)
[2023-01-04] MEDS: IPRATROPIUM BR 0.02% INH SOLN 0.5 MG/2.5 ML VIAL INHALATION ×3 (01:20→13:32)
[2023-01-04] MEDS: ACETAMINOPHEN 325 MG TABLET 650 MG PO (05:19)
[2023-01-04 07:36] LABS: Basophils Percent Auto 0.3 % (0.2-1.2); Eosinophils Absolute Auto 0.1 K/mm3 (0-0.3); Eosinophils Percent Auto 0.5 % (0-4.4); Hematocrit 35.5 % (37.0-47.0); Hemoglobin 11.2 g/dL (12.0-15.0); Immature Granulocyte Percent A 0.8 % (0-0.5); Lymphocytes Absolute Auto 3.33 K/mm3 (0.9-3.2); Lymphocytes Percent Auto 25.5 % (18.3-44.2); Mean Corpuscular HGB Conc 31.5 g/dl (32-36); Mean Corpuscular Hemoglobin 28.4 pg (26-34); Mean Corpuscular Volume 90.1 fl (80-100); Mean Platelet Volume 10.8 fl (7.4-10.4); Monocytes Absolute Auto 1.3 K/mm3 (0.1-0.6); Monocytes Percent Auto 9.7 % (2.6-8.5); Neutrophils Absolute Auto 8.3 K/mm3 (1.3-6.7); Neutrophils Percent Auto 63.2 % (45.5-73.1); Platelet Count Result 304 k/mm3 (150-375); Red Blood Count 3.94 M/mm3 (4.2-5.4); Red Cell Distribution Width 14.7 % (11.5-14.5); White Blood Count 13.1 K/mm3 (4.5-10.0)
[2023-01-04 07:52] LABS: Anion Gap 7 mmol/L (8-16); Blood Urea Nitrogen 14 mg/dL (7-17); Calcium 8.7 mg/dL (8.4-10.2); Carbon Dioxide 29 mmol/L (22-30); Chloride 103 mmol/L (98-107); Estimated CRCL calculation 81 ml/min; Estimated Glomerular Filt Rate > 60; Glucose 146 mg/dL (65-110); Potassium 3.2 mmol/L (3.4-5.0); Sodium 139 mmol/L (137-145)
[2023-01-04 07:59] LABS: Glucose Point of Care 142 mg/dl (65-105)
[2023-01-04] MEDS: DEXTROMETHORPHAN POLISTIREX 60 MG/10 ML SYRINGE PO (08:26)
[2023-01-04] MEDS: predniSONE 20 MG TABLET 40 MG PO (08:27)
[2023-01-04] MEDS: METOPROLOL SUCCINATE EXT REL 25 MG TABCR PO (08:27)
[2023-01-04] MEDS: ROFLUMILAST 500 MCG TABLET PO (08:27)
[2023-01-04] MEDS: EMPAGLIFLOZIN 10 MG TABLET PO (08:28)
[2023-01-04] MEDS: ATORVASTATIN 20 MG TABLET PO (08:28)
[2023-01-04] MEDS: ISOSORBIDE MONONITRATE 30 MG TAB.ER.24H PO (08:28)
[2023-01-04] MEDS: lisinopriL 20 MG TABLET PO (08:28)
[2023-01-04] MEDS: metFORMIN HCL 500 MG TABLET PO (08:28)
[2023-01-04] MEDS: amLODIPine BESYLATE 5 MG TABLET 10 MG PO (08:28)
--- NOTE | 2023-01-04 09:10 | HOMEO2EVAL ---
Evaluation was performed at [facility] Home Oxygen Evaluation RC: Home Oxygen (O2) Evaluation Start: 01/03/23 17:58 Freq: ONCE Status: Active Protocol: RPE Activity Type Activity Date Activity User E-sign Co-sign Detail Recorded Client Recorded Date Recorded By Document 01/04/23 08:45 SHAHLA [email or web address] 01/04/23 09:10 SHAHLA Document 01/04/23 08:50 SHAHLA [email or web address] 01/04/23 09:10 SHAHLA Document 01/04/23 08:52 SHAHLA [email or web address] 01/04/23 09:10 SHAHLA Document 01/04/23 09:00 SHAHLA [email or web address] 01/04/23 09:10 SHAHLA 01/04/23 01/04/23 01/04/23 08:45 08:50 08:52 Home O2 Evaluation [Oxygen] -Test Phase Resting Exercise Exercise -Oxygen Delivery Room Air Room Air Nasal Cannula -Oxygen Flow Rate (L/min) 2 [Pulse Oximetry] -Pulse Oximetry (90-100 %) 95 86 L 92 [Pulse Rate] -Pulse Rate (60-100 beats/min) 87 107 H [Comments] -Home Oxygen Evaluation Comments 2L home O2 with activity [Charges] -Treatment Charges O2 Evaluation - Inpatient 01/04/23 09:00 Home O2 Evaluation [Oxygen] -Test Phase Resting -Oxygen Delivery Room Air -Oxygen Flow Rate (L/min) [Pulse Oximetry] -Pulse Oximetry (90-100 %) 98 [Pulse Rate] -Pulse Rate (60-100 beats/min) 93 [Comments] -Home Oxygen Evaluation Comments [Charges] -Treatment Charges
--- NOTE | 2023-01-04 09:10 | PCRCNOTE ---
HOME O2 EVAL DONE, 2 L WITH ACTIVITY, ROOM AIR AT REST, NO CHANGE FROM CURRENT HOME O2 SETTINGS. PT HAS [facility] DME WITH CPAP, O2 WITH PORTABLE INOGEN UNIT AND SUPPLIES. NO FURTHER O2 NEEDS AT THIS TIME.
[2023-01-04] MEDS: FLUTICASONE/UMECLIDIN/VILANTER 100-62.5-25 MCG ELLIPTA 1 PUFF INHALATION (09:24)
[2023-01-04 11:55] LABS: Glucose Point of Care 197 mg/dl (65-105)
--- NOTE | 2023-01-04 14:27 | PM.DS ---
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: with terminal block assembler use Code(s): E11.9 - Type 2 diabetes mellitus without complications Status: Chronic (3) Hypercholesterolemia: Code(s): E78.00 - Pure hypercholesterolemia, unspecified Status: Chronic (4) Atrial fibrillation, chronic: Code(s): I48.20 - Chronic atrial fibrillation, unspecified Status: Chronic (5) Chronic diastolic (congestive) heart failure: Code(s): I50.32 - Chronic diastolic (congestive) heart failure Status: Chronic (6) Essential (primary) hypertension: Code(s): I10 - Essential (primary) hypertension Status: Chronic DS: Summary Hospital Course Hospital Course: 72-year-old female presented with increased wheezing cough and shortness of breath for the past couple weeks.? Been using Trelegy and albuterol daily with minimal relief.? Received breathing treatment and IV Solu-Medrol in the ER with improvement.? Underlying COPD.? Continue steroid.? Chest x-ray with no acute cardiopulmonary disease.? EKG with AFib with RVR has history of chronic AFib.? Acute hypoxic respiratory failure on home oxygen at 2 L has underlying chronic diastolic congestive heart failure echo 03/06 with EF 50 55% biatrial dilatation mildly sclerotic aortic valve underlying MARCELO on CPAP. Home oxygen evaluation was done at the time of discharge and was back to her baseline status. She will go on a. Zone taper along with oral antibiotics Time Spent with Patient Time attestation: Total time spent providing and/or coordinating discharge services: 35 minutes Exam Narrative: General physical exam: Pleasant not in acute distress currently on room air Head/eyes: Atraumatic, EOMI, PERRLA ENT: Moist mucous membranes, nasal passages clear Neck: Supple, full range of motion, trachea midline CVS: S1 + S2 + 0, regular rate and rhythm, no murmurs Respiratory: Bilaterally decreased air entry in both lung siddiqui, no distress Abdomen: Soft, non-tender, bowel sounds +ve, no organomegaly Extremities: No clubbing, no cyanosis, no edema, no calf tenderness Musculoskeletal: Moves all, adequate range of motion, no muscle spasms Skin: Warm, dry, no jaundice, no cyanosis Neurological: Awake, alert, oriented x 3, cranial nerves II-XII intact, no focal neurological deficits Psychiatric: Normal mood, non suicidal DS: Data Data Completed and Pending Labs on day of discharge: Labs from last 24 hours 01/04/23 01/04/23 01/04/23 11:44 07:43 06:51 WBC 13.1 H RBC 3.94 L Hgb 11.2 L Hct 35.5 L MCV 90.1 MCH 28.4 MCHC 31.5 L RDW 14.7 H Plt Count 304 MPV 10.8 H Immature Gran % (Auto) 0.8 H Neut % (Auto) 63.2 Lymph % (Auto) 25.5 [place] % (Auto) 9.7 H Eos % (Auto) 0.5 Baso % (Auto) 0.3 Lymph # (Auto) 3.33 H [place] # (Auto) 1.3 H Eos # (Auto) 0.1 Baso # (Auto) 0.0 Abs Immat Gran (auto) 0.10 H Absolute Neuts (auto) 8.3 H Absolute Nucleated RBC 0.0 Nucleated RBC % 0.0 Sodium 139 Potassium 3.2 L Chloride 103 Carbon Dioxide 29 Anion Gap 7 L BUN 14 Creatinine 0.60 L Estim Creat Clear Calc 81 Estimated GFR > 60 Glucose 146 H POC Capillary Glucose 197 H 142 H Calcium 8.7 01/03/23 01/03/23 20:14 17:28 WBC RBC Hgb Hct MCV MCH MCHC RDW Plt Count MPV Immature Gran % (Auto) Neut % (Auto) Lymph % (Auto) [place] % (Auto) Eos % (Auto) Baso % (Auto) Lymph # (Auto) [place] # (Auto) Eos # (Auto) Baso # (Auto) Abs Immat Gran (auto) Absolute Neuts (auto
== END 2023-01-04 15:58 | disposition home or self-care (01) ==
LOC: ANHED 22:31 → ANH3MEDSUR 22:57
PROVIDERS: Admitting Provider Family Medicine; Emergency Provider Physician Assistant; PCP Student in an Organized Health Care Education/Training Program; Visit Provider Hospitalist
DX: J44.1 Chronic obstructive pulmonary disease with (acute) exacerbation (principal); N18.4 Chronic kidney disease, stage 4 (severe); I48.20 Chronic atrial fibrillation, unspecified; E11.22 Type 2 diabetes mellitus with diabetic chronic kidney disease; I13.0 Hypertensive heart and chronic kidney disease with heart failure and stage 1 through stage 4 chronic kidney disease, or unspecified chronic kidney disease; I50.32 Chronic diastolic (congestive) heart failure; Z87.891 Personal history of nicotine dependence; E66.9 Obesity, unspecified; Z68.33 Body mass index [BMI] 33.0-33.9, adult; E78.00 Pure hypercholesterolemia, unspecified; I70.219 Atherosclerosis of native arteries of extremities with intermittent claudication, unspecified extremity; E11.21 Type 2 diabetes mellitus with diabetic nephropathy; G47.33 Obstructive sleep apnea (adult) (pediatric); F51.04 Psychophysiologic insomnia; E11.40 Type 2 diabetes mellitus with diabetic neuropathy, unspecified; Z79.4 Long term (current) use of insulin; Z20.822 Contact with and (suspected) exposure to COVID-19
CPT/HCPCS: 36415; 71045; 80048; 80053; 81003; 82948; 83735; 83880; 84100; 85025; 85610; 85730; 87040; 87637; 93005; 94618; 94640; 96365; 96366; 96367; 96375; 96376; 99285; A9270; G0378; J0696; J1815; J2920; J2930; J3475; J7512

== ENCOUNTER 2023-02-01 04:25 | Emergency (ER) | payer OTHER, MEDICAID, SELFPAY ==
[2023-02-01] VITALS (10 sets, daily range): BP systolic 142–165; BP diastolic 74–110; PULSE 82–109; RESP 15–19; TEMP 36.4; O2SAT 91–100
--- NOTE | ~2023-02-01 | CT_ITS ---
CT of the Abdomen and Pelvis: Indication: Abdominal pain Technique: 2.5 mm axial scans were obtained through the abdomen and pelvis following intravenous adm inistration of 100 cc of Omnipaque 350. Dose reduction technique was used on this scan by utilizing a utomated exposure control and iterative reconstruction technique. The dose-length product (DLP) was 8 08.73 mGy-cm. COMPARISON: 08/21/2019 Findings: Scans through the lung bases are unremarkable. The liver, spleen, pancreas, gallbladder, adrenals and kidneys are within normal limits. There are at herosclerotic calcifications of the aorta. No lymphadenopathy. No bowel obstruction or bowel wall thickening. There is no evidence to suggest acute appendicitis. St able densely calcified right lower lobe mass measuring 2.3 cm in diameter. Images through the pelvis were performed. Urinary bladder unremarkable. Patient is status post hyster ectomy. No ascites. Impression: No acute abnormality. Stable 2.3 cm densely calcified right lower lobe mass. Stability over this time interval is compatibl e with benignity. Reviewed, dictated and finalized at location . Impression: No acute abnormality. Stable 2.3 cm densely calcified right lower lobe mass. Stability over this time interval is compatible with benignity.
[2023-02-01] MEDS: ONDANSETRON INJ 4 MG/2 ML VIAL IV PUSH (04:30)
[2023-02-01 04:51] LABS: Basophils Absolute Auto 0.1 K/mm3 (0.0-0.1); Basophils Percent Auto 0.9 % (0.2-1.2); Eosinophils Absolute Auto 0.7 K/mm3 (0-0.3); Eosinophils Percent Auto 8.4 % (0-4.4); Hematocrit 39.4 % (37.0-47.0); Hemoglobin 12.4 g/dL (12.0-15.0); Immature Granulocyte Absolute 0.04 K/mm3 (0.00-0.031); Immature Granulocyte Percent A 0.5 % (0-0.5); Lymphocytes Absolute Auto 1.62 K/mm3 (0.9-3.2); Lymphocytes Percent Auto 20.1 % (18.3-44.2); Mean Corpuscular HGB Conc 31.5 g/dl (32-36); Mean Corpuscular Hemoglobin 29.1 pg (26-34); Mean Corpuscular Volume 92.5 fl (80-100); Mean Platelet Volume 11.1 fl (7.4-10.4); Monocytes Absolute Auto 1.2 K/mm3 (0.1-0.6); Monocytes Percent Auto 14.8 % (2.6-8.5); Neutrophils Absolute Auto 4.5 K/mm3 (1.3-6.7); Neutrophils Percent Auto 55.3 % (45.5-73.1); Platelet Count Result 281 k/mm3 (150-375); Red Blood Count 4.26 M/mm3 (4.2-5.4); Red Cell Distribution Width 16.2 % (11.5-14.5); White Blood Count 8.1 K/mm3 (4.5-10.0)
[2023-02-01] MEDS: MORPHINE SULFATE (*CRX) 4 MG/ML INJ IV PUSH (04:53)
[2023-02-01] MEDS: SODIUM CHLORIDE 0.9% IV 1,000 ML 999 ML IV CONT (04:54)
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
[2023-02-01 05:19] LABS: Alanine Aminotransferase 32 U/L (6-35); Albumin Level 4.2 g/dL (3.5-5.1); Alkaline Phosphatase 80 U/L (38-126); Anion Gap 11 mmol/L (8-16); Aspartate Amino Transferase 29 U/L (14-36); Bilirubin,Total 0.7 mg/dL (0.2-1.3); Blood Urea Nitrogen 17 mg/dL (7-17); Calcium 9.2 mg/dL (8.4-10.2); Carbon Dioxide 23 mmol/L (22-30); Chloride 102 mmol/L (98-107); Estimated CRCL calculation 81 ml/min; Estimated Glomerular Filt Rate > 60; Glucose 244 mg/dL (65-110); Lipase 69 U/L (23-300); Potassium 3.6 mmol/L (3.4-5.0); Sodium 136 mmol/L (137-145)
[2023-02-01 05:32] LABS: Appearance Urine Clear (Clear); Bilirubin Urine Negative (Negative); Blood Urine Negative (Negative); Color Urine Yellow (Yellow); Glucose Urine UA 3+ mg/dL (Negative); Ketones Urine 2+ mg/dL (Negative); Leukocyte Esterase Ur Negative LEU/UL (Negative); Nitrate Urine Negative (Negative); Protein Urine Negative (Negative); Specific Grav Ur 1.031 (1.001-1.035); pH Urine 5.5 (5.0-9.0)
[2023-02-01 05:38] LABS: Add Urine Microscopic? NO
[2023-02-01] MEDS: PROCHLORPERAZINE EDISYLATE 10 MG/2 ML VIAL IV PUSH (07:05)
--- NOTE | 2023-02-01 07:50 | PC.NURSE ---
Pt completed PO challenge and is not feeling any pain, N/V, indigestion. Pt stated she feels pretty good .
[2023-02-01] MEDS: ONDANSETRON HCL ODT 4 MG TABLET PO (08:17)
--- NOTE | 2023-02-01 08:23 | PC.NURSE ---
This RN had to wake pt up to DC. Took out IV, went over DC instructions, instructed PT to get dressed and left room. Went back into room w/wheelchair and pt stated when you took out my IV it made me nauseous.
== END 2023-02-01 09:23 | disposition home or self-care (01) ==
PROVIDERS: Emergency Provider Emergency Medicine; PCP Student in an Organized Health Care Education/Training Program
DX: R11.2 Nausea with vomiting, unspecified (principal); I13.0 Hypertensive heart and chronic kidney disease with heart failure and stage 1 through stage 4 chronic kidney disease, or unspecified chronic kidney disease; I50.9 Heart failure, unspecified; E11.22 Type 2 diabetes mellitus with diabetic chronic kidney disease; N18.4 Chronic kidney disease, stage 4 (severe); J44.9 Chronic obstructive pulmonary disease, unspecified; I48.20 Chronic atrial fibrillation, unspecified; E78.00 Pure hypercholesterolemia, unspecified; E11.44 Type 2 diabetes mellitus with diabetic amyotrophy; J96.11 Chronic respiratory failure with hypoxia; J96.12 Chronic respiratory failure with hypercapnia; G47.30 Sleep apnea, unspecified; F41.9 Anxiety disorder, unspecified; Z87.891 Personal history of nicotine dependence; Z79.4 Long term (current) use of insulin; Z79.84 Long term (current) use of oral hypoglycemic drugs; Z79.51 Long term (current) use of inhaled steroids; Z79.01 Long term (current) use of anticoagulants
CPT/HCPCS: 36415; 74177; 80053; 81003; 83690; 85025; 96361; 96374; 96375; 99284; A9270; J0780; J2270; J2405; J7030; Q9967

== ENCOUNTER 2023-04-01 14:52 | Outpatient (CLI) | payer OTHER, MEDICAID, SELFPAY ==
--- NOTE | ~2023-04-01 | CT_ITS ---
EXAMINATION: CT lung screening DATE: 04/01/2023 15:22 INDICATION: Personal history of nicotine dependence TECHNIQUE: Computed tomography (CT) of the chest was performed without intravenous contrast. The dose -length product was 364.46 mGy-cm. Automated exposure control and iterative reconstruction technique were employed. COMPARISON: CT dated 03/29/2022 FINDINGS: mild cardiomegaly. There are calcified granulomas bilaterally. Calcified mediastinal lymph nodes, consistent with chronic granulomatous disease. There is atherosclerosis of the aorta and coron suzanne arteries. No significant pleural or pericardial effusion. There is emphysema. There is a stable p art solid. Fissural nodule in the right measuring 6 mm. There is a groundglass nodule of the minor fi ssure unchanged. No endobronchial lesions. No pneumothorax. Developing left lower lobe pleural thicke miriam/scarring, measuring up to 5 mm. Accentuated thoracic kyphosis with mild chronic wedge compressio n deformities of the midthoracic spine. IMPRESSION: 1. Lung-RADS category 3: Probably benign. Further evaluation is recommended with noncontrast low-dose chest CT in 6 months. Reviewed, dictated and finalized at location A. BILITATION ASSISTANT IMPRESSION: 1. Lung-RADS category 3: Probably benign. Further evaluation is recommended wit h noncontrast low-dose chest CT in 6 months.
== END 2023-04-01 14:53 | disposition home or self-care (01) ==
LOC: ANHIMG 14:55
PROVIDERS: PCP Student in an Organized Health Care Education/Training Program; Visit Provider Nurse Practitioner Family
DX: Z12.2 Encounter for screening for malignant neoplasm of respiratory organs (principal); R91.8 Other nonspecific abnormal finding of lung field; Z87.891 Personal history of nicotine dependence
CPT/HCPCS: 71271

== ENCOUNTER 2023-07-17 14:59 | Outpatient (CLI) | payer OTHER, MEDICAID, SELFPAY ==
--- NOTE | ~2023-07-17 | MM_ITS ---
EXAMINATION: MM screening isra BI w tiesha HISTORY: Screening TECHNIQUE: Craniocaudal and mediolateral oblique 3-D tomosynthesis images were obtained and synthetic 2-D images were generated. CAD analysis was submitted and interpreted. COMPARISON: Comparison to multiple prior studies sequentially, with oldest reviewed study dated 11/29. BREAST PARENCHYMAL COMPOSITION: Not Dense: Breast are almost entirely fatty. FINDINGS: There is no evidence of suspicious mass, calcification, or architectural distortion to sugg est malignancy in either breast. There has been no suspicious interval change. IMPRESSION: 1. No mammographic evidence of malignancy. 2. Recommend routine screening mammography in one year. BI-RADS Category 1: Negative Reviewed, dictated and finalized at location A.
== END 2023-07-17 15:00 | disposition home or self-care (01) ==
LOC: ANHIMG 15:02
PROVIDERS: PCP Student in an Organized Health Care Education/Training Program; Visit Provider Student in an Organized Health Care Education/Training Program
DX: Z12.31 Encounter for screening mammogram for malignant neoplasm of breast (principal)
CPT/HCPCS: 77063; 77067

== ENCOUNTER 2023-10-03 13:50 | Outpatient (CLI) | payer OTHER, MEDICAID, SELFPAY ==
--- NOTE | ~2023-10-03 | CT_ITS ---
EXAMINATION:CT diagnostic chest wo con DATE: 10/03/2023 14:13 INDICATION: Other nonspecific abnormal finding of lung field. TECHNIQUE: Computed tomography (CT) of the chest was performed without intravenous contrast. Automate d exposure control and iterative reconstruction technique were employed. The dose-length product (DLP ) was 290.54 mGy-cm. COMPARISON: Chest CT 04/01/2023 FINDINGS: There is mild emphysema. There is an 8 mm nodule at minor fissure that previously measured 7 mm. There is a 4 mm groundglass nodule at minor fissure. Calcified pulmonary nodules and calcified hilar mediastinal lymph nodes are consistent with old granulomatous disease. There is minimal atelect asis bilaterally. No pleural effusion. Cardiomegaly is noted. There are coronary artery calcification s. No pericardial effusion. There is severe lower thoracic spondylosis. IMPRESSION: 1. Lung-RADS category 3: Probably benign. Further evaluation is recommended with noncontrast low-dose chest CT in 6 months. Reviewed, dictated and finalized at location A. IMPRESSION: 1. Lung-RADS category 3: Probably benign. Further evaluation is recommended wit h noncontrast low-dose chest CT in 6 months.
== END 2023-10-03 13:51 | disposition home or self-care (01) ==
PROVIDERS: PCP Student in an Organized Health Care Education/Training Program; Visit Provider Nurse Practitioner Family
DX: R91.8 Other nonspecific abnormal finding of lung field (principal)
CPT/HCPCS: 71250

== ENCOUNTER 2023-11-23 12:00 | Emergency (ER) | payer OTHER, MEDICAID, SELFPAY ==
--- NOTE | ~2023-11-23 | XR_ITS ---
EXAMINATION: XR chest 2V DATE: 11/23/2023 12:38 INDICATION: Cough. TECHNIQUE: Frontal and lateral views of the chest were obtained. COMPARISON: Chest single view 01/01/2023, chest CT 10/03/2023 FINDINGS: Calcified pulmonary nodules are consistent with old granulomatous disease. No pleural effus ion or pneumothorax. Cardiomegaly is noted. IMPRESSION: 1. Cardiomegaly. Reviewed, dictated and finalized at location A. IMPRESSION: 1. Cardiomegaly.
[2023-11-23 12:13] VITALS: BP 123/83; PULSE 93; RESP 16; TEMP 37.1; O2SAT 93
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
== END 2023-11-23 13:18 | disposition home or self-care (01) ==
PROVIDERS: Emergency Provider Nurse Practitioner Family; PCP Student in an Organized Health Care Education/Training Program
DX: J44.1 Chronic obstructive pulmonary disease with (acute) exacerbation (principal); Z20.822 Contact with and (suspected) exposure to COVID-19; Z99.81 Dependence on supplemental oxygen; I48.20 Chronic atrial fibrillation, unspecified; I13.0 Hypertensive heart and chronic kidney disease with heart failure and stage 1 through stage 4 chronic kidney disease, or unspecified chronic kidney disease; E11.22 Type 2 diabetes mellitus with diabetic chronic kidney disease; N18.4 Chronic kidney disease, stage 4 (severe); I50.9 Heart failure, unspecified; Z79.4 Long term (current) use of insulin; E78.00 Pure hypercholesterolemia, unspecified; M19.90 Unspecified osteoarthritis, unspecified site; E11.44 Type 2 diabetes mellitus with diabetic amyotrophy; Z87.891 Personal history of nicotine dependence
CPT/HCPCS: 71046; 87426; 99213; G0463

== ENCOUNTER 2023-12-28 09:14 | Emergency (ER) | payer OTHER, MEDICAID, SELFPAY ==
--- NOTE | ~2023-12-28 | XR_ITS ---
EXAMINATION: XR chest 2V DATE: 12/28/2023 09:37 INDICATION: Wheezing TECHNIQUE: frontal and lateral views of the chest were obtained. COMPARISON: Chest radiograph dated 11/23/2023 FINDINGS: Again seen are few scattered bilateral calcified pulmonary nodules consistent with old granulomatous disease. No other airspace opacities, pulmonary edema, pleural effusion or pneumothorax. Mild cardiom egaly. IMPRESSION: 1. Cardiomegaly. Reviewed, dictated and finalized at location A. IMPRESSION: 1. Cardiomegaly.
[2023-12-28 09:19] VITALS: BP 122/94; PULSE 113; RESP 20; TEMP 36.9; O2SAT 99
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
[2023-12-28 09:39] VITALS: PULSE 99; RESP 36; O2SAT 98
[2023-12-28] MEDS: predniSONE 20 MG TABLET 60 MG PO (09:39)
[2023-12-28] MEDS: IPRATROPIUM 0.5 MG/ALBUTEROL SULFATE 2.5 MG AMPUL.NEB 3 ML INHALATION (09:39)
[2023-12-28 09:41] LABS: EDCOVIDSCREEN Negative (Negative); EDINFLUASCREEN Negative (Negative); EDINFLUBSCREEN Negative (Negative)
[2023-12-28 09:54] VITALS: PULSE 102; RESP 32; O2SAT 99
[2023-12-28 11:52] VITALS: PULSE 91; RESP 24; O2SAT 99
== END 2023-12-28 11:52 | disposition home or self-care (01) ==
PROVIDERS: Emergency Provider Nurse Practitioner Family; PCP Student in an Organized Health Care Education/Training Program
DX: J44.1 Chronic obstructive pulmonary disease with (acute) exacerbation (principal); Z20.822 Contact with and (suspected) exposure to COVID-19; Z87.891 Personal history of nicotine dependence; I13.0 Hypertensive heart and chronic kidney disease with heart failure and stage 1 through stage 4 chronic kidney disease, or unspecified chronic kidney disease; E11.22 Type 2 diabetes mellitus with diabetic chronic kidney disease; N18.4 Chronic kidney disease, stage 4 (severe); I50.9 Heart failure, unspecified; Z79.4 Long term (current) use of insulin; Z79.84 Long term (current) use of oral hypoglycemic drugs; I48.20 Chronic atrial fibrillation, unspecified; E78.00 Pure hypercholesterolemia, unspecified; M19.90 Unspecified osteoarthritis, unspecified site
CPT/HCPCS: 71046; 87635; 87804; 94640; 99213; G0463; J7512

== ENCOUNTER 2024-08-26 12:48 | Emergency (ER) | payer MEDICARE, MEDICAID, SELFPAY ==
[2024-08-26 13:06] VITALS: BP 146/88; PULSE 90; RESP 20; TEMP 36.2; O2SAT 99
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
[2024-08-26] MEDS: diphenhydrAMINE HCl CAP 25 MG CAPSULE PO (13:23)
[2024-08-26] MEDS: methylPREDNISolone SOD SUCC 125 MG VIAL IM (13:27)
== END 2024-08-26 13:56 | disposition home or self-care (01) ==
PROVIDERS: PCP Student in an Organized Health Care Education/Training Program
DX: J30.2 Other seasonal allergic rhinitis (principal); I13.0 Hypertensive heart and chronic kidney disease with heart failure and stage 1 through stage 4 chronic kidney disease, or unspecified chronic kidney disease; E11.22 Type 2 diabetes mellitus with diabetic chronic kidney disease; N18.4 Chronic kidney disease, stage 4 (severe); I50.9 Heart failure, unspecified; Z79.4 Long term (current) use of insulin; Z79.84 Long term (current) use of oral hypoglycemic drugs; E11.44 Type 2 diabetes mellitus with diabetic amyotrophy; J44.9 Chronic obstructive pulmonary disease, unspecified; M19.90 Unspecified osteoarthritis, unspecified site; I48.91 Unspecified atrial fibrillation; E78.00 Pure hypercholesterolemia, unspecified; Z87.891 Personal history of nicotine dependence
CPT/HCPCS: 96372; 99213; A9270; G0463; J2919

== ENCOUNTER 2024-10-09 14:20 | Outpatient (CLI) | payer MEDICARE, MEDICAID, SELFPAY ==
--- NOTE | ~2024-10-09 | DEXA_ITS ---
Bone Density Report Name: ROSITA MUNGUIA Age: 74 Sex: Female Ethnicity: Black Date of : 1950 Indication: osteopenia; height loss; asthma or emphysema; hysterectomy; Referring Provider: ABRAHAN, MARI Study: Bone densitometry was performed. Exam Date: October 09, 2024 Accession number: [id number] Bone Density: Region BMD T-score Z-score Classification AP Spine(L2, L3, L4) 1.045 -0.3 1.5 Normal Femoral Neck (Left) 0.544 -2.7 -1.3 Osteoporosis Total Hip (Left) 0.714 -1.9 -0.7 Osteopenia Femoral Neck (Right) 0.571 -2.5 -1.1 Osteoporosis Total Hip (Right) 0.698 -2.0 -0.9 Osteopenia Total Hip Mean 0.706 -2.0 -0.8 Osteopenia World Health Organization criteria for BMD impression classify patients as: Normal (T-score at or above -1.0), Osteopenia (T-score between -1.0 and -2.5), or Osteoporosis (T-score at or below -2.5). 10-year Fracture Risk: FRAX not reported because: Some T-score for Spine Total or Hip Total or Femoral Neck at or below -2.5 Previous Exams: Region Exam Age BMD T-score BMD Change BMD Change Date g/cm2 vs Baseline vs Previous AP Spine (L2-L4) 10/09/2024 74 1.045 -0.3 -0.024 (-2.3%) -0.024 (-2.3%) 03/23/2022 71 1.069 -0.1 Total Hip(Left) 10/09/2024 74 0.714 -1.9 -0.034 (-4.6%) -0.034 (-4.6%) 03/23/2022 71 0.748 -1.6 Total Hip(Right) 10/09/2024 74 0.698 -2.0 -0.020 (-2.8%) -0.020 (-2.8%) 03/23/2022 71 0.718 -1.8 *Denotes significance at 95% confidence level, LSC for AP Spine = 0.022 g/cm2, LSC for Total Hip = 0.027 g/cm2 Clinical Information Provided by Patient: Has used the following medications: Vitamin D, Calcium Has the following medical conditions: Asthma or Emphysema, Hysterectomy Patient maximum height was 66 Menopause Age: 39 No regular weight bearing exercise Does not regularly consume dairy products Drinks caffeinated beverages Onset of menses at age 12 Number of children 3 Impression: The patient has osteoporosis, based on the Left Femoral Neck T-score. The BMD for the AP Spine (L2-L4) decreased, changing by -2.3% since the last DXA exam. The BMD for the Total Hip(Left) decreased, changing by -4.6% since the last DXA exam. Discussion: INCREASED RISK OF FRACTURE. BONE DENSITY IS UNDESIRABLY LOW AT ONE OR MORE SKELETAL SITES, CONSISTENT WITH POSTMENOPAUSAL OSTEOPOROSIS. This patient's lowest T-score meets the World Health Organization's (WHO) criteria for osteoporosis at one or more sites (T-score -2.5 or below). In untreated patients, the risk of osteoporotic fracture increases approximately two-fold for each 1.0 SD decrease in T-score. Low bone density is not the only risk factor for fracture; also consider factors such as patient's age, frailty or poor health, risk of falling, risk of injury, previous osteoporotic fracture, family history of osteoporosis, cigarette smoking, low body weight, etc. Not everyone with low bone mineral density has osteoporosis; osteomalacia and other metabolic bone disorders should also be considered. Patients who have osteoporosis should be evaluated for specific diseases and conditions (secondary causes) that may cause or contribute to bone loss. The [place] [employer]ocrinologists (AACE) and National Osteoporosis Foundation (NOF) recommend pharmacologic intervention for all postmenopausal women whose T-score is in this range. The patient should follow a healthful lifestyle (good nutrition with adequate calcium and vitamin D, and appropriate weight-bearing exercise). Follow-Up: Consider a repeat BMD and Vertebral Fracture Assessment (VFA) exam in 2 years or sooner if medically necessary, to reassess this patient's status. Reported by: RITA on 10/09/2024 2:54:00 PM. Reviewed, dictated and finalized at location A.
== END 2024-10-09 14:21 | disposition home or self-care (01) ==
LOC: ANHIMG 14:21
PROVIDERS: PCP Student in an Organized Health Care Education/Training Program; Visit Provider Student in an Organized Health Care Education/Training Program
DX: M81.0 Age-related osteoporosis without current pathological fracture (principal); M85.89 Other specified disorders of bone density and structure, multiple sites
CPT/HCPCS: 77080

== ENCOUNTER 2024-12-08 08:16 | Outpatient (CLI) | payer MEDICARE, MEDICAID, SELFPAY ==
--- NOTE | ~2024-12-08 | MM_ITS ---
EXAMINATION: MM screening isra BI w tiesha HISTORY: Screening TECHNIQUE: Craniocaudal and mediolateral oblique 3-D tomosynthesis images were obtained and synthetic 2-D images were generated. CAD analysis was submitted and interpreted. COMPARISON: Comparison to multiple prior studies sequentially, with oldest reviewed study dated 10/02/2013. BREAST PARENCHYMAL COMPOSITION: The breasts are almost entirely fatty. FINDINGS: There is no evidence of suspicious mass, calcification, or architectural distortion to suggest malignancy in either breast. IMPRESSION: 1. No mammographic evidence of malignancy. 2. Recommend routine screening mammography in one year. BI-RADS Category 1: Negative Reviewed, dictated and finalized at location B.
== END 2024-12-08 08:17 | disposition home or self-care (01) ==
LOC: ANHFOHIMG 08:18
PROVIDERS: PCP Student in an Organized Health Care Education/Training Program; Visit Provider Student in an Organized Health Care Education/Training Program
DX: Z12.31 Encounter for screening mammogram for malignant neoplasm of breast (principal)
CPT/HCPCS: 77063; 77067